=== PATIENT | male | born 1945 ===

== ENCOUNTER 2018-12-07 00:18 | Outpatient (CLI) | payer MEDICARE, OTHER, SELFPAY ==
--- NOTE | 2018-12-07 07:14 | DI.US_ITS ---
SYMPTOM/DIAGNOSIS: FAMILY H/O AAA, Z82.49, ? AAA AORTA ULTRASOUND: There is no evidence of abdominal aortic aneurysm. Maximum diameter of the abdominal aorta is seen proximally and is 2.6 cm. IMPRESSION: No evidence of an abdominal aortic aneurysm.
== END 2018-12-07 00:38 ==
PROVIDERS: PCP Emergency Medicine; Visit Provider Emergency Medicine
DX: Z82.49 Family history of ischemic heart disease and other diseases of the circulatory system (principal); Z13.6 Encounter for screening for cardiovascular disorders
CPT/HCPCS: 76706

== ENCOUNTER 2019-05-31 09:12 | Outpatient (CLI) | payer MEDICARE, OTHER, SELFPAY ==
[2019-05-31 13:09] LABS: TSH 2.78 uIU/mL (0.36-3.74)
== END 2019-05-31 09:32 ==
PROVIDERS: PCP Emergency Medicine; Visit Provider Emergency Medicine
DX: E03.9 Hypothyroidism, unspecified (principal)
CPT/HCPCS: 36415; 84443

== ENCOUNTER 2020-06-12 09:04 | Outpatient (REF) | payer MEDICARE, OTHER, SELFPAY ==
[2020-06-12 13:36] LABS: TSH 2.29 uIU/mL (0.36-3.74)
== END 2020-06-12 09:24 ==
LOC: LBN 09:04
PROVIDERS: PCP Emergency Medicine; Visit Provider Emergency Medicine
DX: E03.9 Hypothyroidism, unspecified (principal)
CPT/HCPCS: 84443

== ENCOUNTER 2020-12-12 09:53 | Outpatient (REF) | payer MEDICARE, OTHER, SELFPAY ==
[2020-12-12 12:53] LABS: Calculated LDL 99 mg/dL (<100); Cholesterol 166 mg/dL (<200); HDL Cholesterol 39 mg/dL (40-60); Triglyceride 141 mg/dL (<150)
[2020-12-12 21:59] LABS: PSA, Screening 3.2 ng/mL (0.0-6.5)
== END 2020-12-12 09:54 | disposition home or self-care (01) ==
LOC: LBN 09:53
PROVIDERS: PCP Emergency Medicine; Visit Provider Emergency Medicine
DX: N52.9 Male erectile dysfunction, unspecified (principal); N40.0 Benign prostatic hyperplasia without lower urinary tract symptoms; Z12.5 Encounter for screening for malignant neoplasm of prostate
CPT/HCPCS: 80061; 84153

== ENCOUNTER 2021-10-08 15:36 | Outpatient (REF) | payer MEDICARE, OTHER, SELFPAY ==
[2021-10-08 16:47] LABS: BUN 18 mg/dL (7-18); CREATININE 0.9 mg/dL (0.70-1.30); Calcium 9.2 mg/dL (8.5-10.1); Chloride 106 mmol/L (98-107); Glucose 81 mg/dL (74-106); Potassium 4.3 mmol/L (3.5-5.1); Sodium 141 mmol/L (136-145); TSH 3.12 uIU/mL (0.36-3.74)
== END 2021-10-08 15:37 | disposition home or self-care (01) ==
LOC: LBN 15:36
PROVIDERS: PCP Emergency Medicine; Visit Provider Emergency Medicine
DX: E03.9 Hypothyroidism, unspecified (principal); I10 Essential (primary) hypertension
CPT/HCPCS: 80048; 84443

== ENCOUNTER 2022-05-05 10:50 | Outpatient (CLI) | payer MEDICARE, OTHER, SELFPAY ==
--- NOTE | 2022-05-05 10:45 | RT.EKG_ITS ---
APPROVED REPORT Exam: Resting ECG Reason for Exam: No change in pulse rate while exercising Patient Location: O HR:57 bpm ECG Measurements Heart Rate 57 AXIS SD 173 P -3 QRSd 85 QRS -27 QT 413 T 57 QTc 400 Conclusion Sinus bradycardia...rate< 60 Atrial premature complex...SV complex w/ short R-R interval Low voltage, extremity leads...all extremity leads <0.5mV
== END 2022-05-05 10:51 | disposition home or self-care (01) ==
LOC: DI.CM 10:52
PROVIDERS: PCP Family Medicine; Visit Provider Emergency Medicine
DX: R94.31 Abnormal electrocardiogram [ECG] [EKG]; I49.1 Atrial premature depolarization
CPT/HCPCS: 93010

== ENCOUNTER 2022-05-12 10:25 | Outpatient (RCR) | payer MEDICARE, OTHER, SELFPAY ==
--- NOTE | 2022-05-12 10:15 | HOLTER_ITS ---
APPROVED REPORT Conclusion This is a 48-hour Holter monitor Predominant rhythm was sinus with an average heart rate of 63. Minimum was 51, maximum 134 There were moderately frequent ventricular ectopic beats, rare couplets, one 5 beat run of nonsustain ed ventricular tachycardia There were occasional atrial premature beats. A total of 4 episodes of paroxysmal atrial fibrillatio n were recorded. The longest of these lasted 1 minute and 7 seconds. There was no high-grade AV block, no pauses greater than 3 seconds There were no patient symptoms were reported
== END 2022-05-18 23:59 | disposition home or self-care (01) ==
LOC: RT 10:25
PROVIDERS: PCP Family Medicine; Visit Provider Emergency Medicine
DX: I45.89 Other specified conduction disorders (principal); I49.49 Other premature depolarization; I47.2 Ventricular tachycardia; I48.0 Paroxysmal atrial fibrillation
CPT/HCPCS: 93227; 93225; 93226

== ENCOUNTER 2022-05-12 12:00 | Outpatient (CLI) | payer MEDICARE, OTHER, SELFPAY ==
[2022-05-12 13:23] LABS: Anion Gap 8.5 mmol/L (3-11); BUN 23 mg/dL (7-18); CO2 26.5 mmol/L (21.0-32.0); CREATININE 1.1 mg/dL (0.70-1.30); Calcium 9.1 mg/dL (8.5-10.1); Chloride 106 mmol/L (98-107); Glucose 138 mg/dL (74-106); Potassium 3.7 mmol/L (3.5-5.1); Sodium 141 mmol/L (136-145)
== END 2022-05-12 12:01 | disposition home or self-care (01) ==
LOC: LBO 12:03
PROVIDERS: PCP Family Medicine; Visit Provider Emergency Medicine
DX: E03.9 Hypothyroidism, unspecified (principal); I10 Essential (primary) hypertension; R79.89 Other specified abnormal findings of blood chemistry
CPT/HCPCS: 36415; 80048; 93227; 84439; 84443; 93225; 93226

== ENCOUNTER 2023-06-15 08:26 | Outpatient (CLI) | payer MEDICARE, OTHER, SELFPAY ==
[2023-06-15 08:49] LABS: ALT 27 U/L (16-63); AST 28 U/L (15-37); Albumin 3.6 g/dL (3.4-5.0); Alkaline Phosphatase 70 U/L (46-116); Anion Gap 7.3 mmol/L (3-11); BUN 19 mg/dL (7-18); Bilirubin, Total 0.6 mg/dL (0.2-1.0); CO2 28.7 mmol/L (21.0-32.0); CREATININE 1.1 mg/dL (0.70-1.30); Calcium 9.1 mg/dL (8.5-10.1); Chloride 105 mmol/L (98-107); Estimated GFR 68.71 (mL/min/1.73m2); Glucose 79 mg/dL (74-106); Potassium 4.3 mmol/L (3.5-5.1); Sodium 141 mmol/L (136-145); TSH (W/Ref FT4) 3.13 uIU/mL (0.36-3.74); Total Protein 7.2 g/dL (6.4-8.2)
== END 2023-06-15 08:27 | disposition home or self-care (01) ==
LOC: LBO 08:27
PROVIDERS: PCP Family Medicine; Visit Provider Family Medicine
DX: I10 Essential (primary) hypertension (principal); E03.9 Hypothyroidism, unspecified; G62.9 Polyneuropathy, unspecified; L98.8 Other specified disorders of the skin and subcutaneous tissue
CPT/HCPCS: 36415; 80053; 84443

== ENCOUNTER → 2024-01-29 00:15 | Outpatient (CLI) | payer MEDICARE, OTHER, SELFPAY ==
--- NOTE | 2024-01-29 14:33 | DI.US_ITS ---
APPROVED REPORT EXAM: Comprehensive 2D, Doppler, and color-flow Echocardiogram Patient Location: Out-Patient Automation Tech: Lauren Cordova RDCS (AE) Indications: Weakness, Arrhythmia, SOB Other Information Study Quality: Adequate. Technically limited study due to arrhythmia. Conclusion Normal left ventricualr wall thickness and chamber size. EF is 55%. Wall motion is normal Normal right ventriucalr size and function Both atria are moderately dilated The aortic valve is mildly sclerotic and trileaflet, with trace regurgitation. Normal mitral valve with trace to mild regurgitation Moderate tricuspid regurgitation. estimated RVSP is 40 mmHg Ascending aorta measures 3.6 cm Wall motion Left Ventricle The left ventricle is normal size. The left ventricular systolic function is normal. The left ventric ular ejection fraction is within the normal range. There is normal left ventricular wall thickness. T here is normal LV segmental wall motion. There is no ventricular septal defect visualized. LVEF is 55 %. Right Ventricle Right ventricle is grossly normal in size. Right ventricular systolic function is grossly normal. Atria Left atrium is moderately dilated. Right atrium is moderately dilated. The interatrial septum is inta ct with no evidence for an atrial septal defect. Aortic Valve The Aortic valve is mildly sclerotic. Aortic valve is trileaflet. There is no aortic valvular stenosi s. Trace aortic regurgitation. Mitral Valve The mitral valve is normal in structure. No evidence of mitral valve stenosis. Trace to mild mitral r egurgitation. Tricuspid Valve The tricuspid valve is normal in structure. There is no tricuspid valve stenosis. Moderate tricuspid regurgitation. The RVSP is 39.7_ mmHg. Pulmonic Valve The pulmonary valve is normal in structure. There is no pulmonic valvular stenosis. Trace to mild pul anne regurgitation. Great Vessels The aortic root is normal in size. The ascending aorta is mildly dilated. Aortic arch is not well vis ualized. The IVC collapses <50% with inspiration. Pericardium There is no pericardial effusion. 2D Dimensions IVSD d PLAX 1.00 cm M: 0.6-1.2 Ao Root d 3.56 cm M: 3.1 - 3.7 LVPW d PLAX 1.00 cm M: 0.6 - 1.2 Ao Asc Diam d 3.58 cm M: 2.6 - 3.4 LVID d PLAX 5.22 cm M: 4.2 - 5.8 LVDs 3.73 cm M: 2.5 - 4.0 LV EF Teichholz 54.8 % FS 28.63 % LV EDV (Teich) 130.8 mL LV ESV (Teich) 59.2 mL M-Mode TAPSE 2.61 cm (M/F) >1.7 Auto EF LV EDV A4C 126.7 mL LV EDV A2C 152.3 mL LV EDV BP 137.7 mL LV ESV A4C 58.7 mL LV ESV A2C 69.6 mL LV ESV BP 63.3 mL LVEF(%) A4C 53.6 % LVEF(%) A2C 54.3 % LVEF(%) BP 54.1 % LV SV A4C 67.9 ml LV SV A2C 82.7 ml LV SV BP 74.5 ml LV CO A4C 4.4 L/min LV CO A2C 4.5 L/min LV CO BP 4.4 L/min HR A4C 64.06 BPM HR A2C 54.30 BPM LV EDV Index (BP) LA Volume LA Length A4C 6.9 cm LA Length A2C 5.8 cm LA Area A4C s 27.84 cm2 LA Area A2C s 26.46 cm2 LA Vol A4C A-L 94.76 mL LA Vol A2C A-L 102.03 mL LA Vol Biplane A-L 107.3 mL LA Vol/BSA A4C A-L LA Vol/BSA A2C A-L LA Vol/BSA BP A-L 51.1 mL/m2 LA Vol A4C MOD 85.2 mL LA Vol A2C MOD 95.0 mL LA Vol BP MOD 98.0 mL RA Volume RA Area A4C 24.6 cm2 RA ESV A4C (A-L) 81.9mL RA Vol/BSA A4C A-L RA Length A4C 6.3 cm RA ESV A4C (MOD) 77.4mL LV Diastology MV E' medial 0.061 (>0.07 m/s) MV E Vmax 0.44 (0.4-1.3 m/s) MV E/E' MED 7.17 (<14) MV A Vmax 0.65 (0.4-1.3 m/s) MV E' lateral 0.061 (>0.1 m/s) E/A Ratio 0.7 MV E/E' LAT 7.17 (<14) MV E' Average 0.061 m/s MV E/E'(average) 7.17 Aortic Valve AoV Vmax 1.39 m/s LVOT Vmax 1.11 m/s AoV Peak Grad 7.7 mmHg LVOT Peak Grad 4.9 mmHg AoV Area (Vmax) 2.70 cm2 LVOT VTI 0.239 m AoV VTI 0.341 m LVOT Mean Grad 2.7 mmHg AoV Mean Johann. 0.96 m/s LVOT SV 81.07 mL AoV Mean Grad 4.2 mmHg LVOT Diam s 2.05 cm AoV Area (VTI) 2.38 cm2 Velocity Ratio 0.80 Mitral Valve MV DT 477 (160-240 msec) MV Vmax TIPS 0.71 m/s MV Mean Grad 0.6 (<2mmHg) MV VTI 0.197 m Pulmonary Valve PV Vmax 0.91 (0.5-1.5 m/s) RVOT Vmax 0.77 m/s PV Peak Grad 3.3 mmHg RVOT Peak Gr. 2.4 mmHg PV Mean Johann 0.60 m/s RVOT VTI 0.180 m PV Mean Grad 1.7 mmHg RVOT Mean Gr. 1.1 mmHg Tricuspid Valve RA Pressure 8.00 mmHg TR Vmax 2.82 m/s TV S' 0.15 m/s TR Peak Grad 31.7 mmHg RVSP (TR) 39.7 mmHg
== END ==
PROVIDERS: PCP Family Medicine; Visit Provider Family Medicine
DX: R06.02 Shortness of breath (principal); R53.1 Weakness
CPT/HCPCS: 93306

== ENCOUNTER 2024-05-20 02:28 | Outpatient (CLI) | payer MEDICARE, OTHER, SELFPAY ==
--- OUTSIDE RECORDS SUMMARY | 2024-05-20 02:48 | XMS_ITS | Encounter Summary ---
Author Organization [facility]ly [facility] Address [facility] [place] [address] Care Team Providers Care Snowmaker Name Role Phone González Luis DO Primary Care Provider [phone] Reason for Visit * Reason Onset Date Comments TeleHealth 08/21/2022 Medication and a llergy review. Encounter Details Date Type Department Care Team (Late st Contact Info) Description 08/21/2022 [place] [address] Laura Chavez MD [facility] [place] [address] TeleHealth (Medication and allergy review. ) Social History Tobacco Use Types Packs/Day Years Used Date Smoking Tobacco: Former Cigarettes Q uit: 06/30/1967 Smokeless Tobacco: Never Alcohol Use Standard Drinks/Week Comments No 0 (1 standard drink = 0.6 oz pur e alcohol) Sex and Gender Information Value Date Recorded Sex Assigned at Not on file Gender Identity Not on file Sexual Orientation Choose not to disclose 2022 11:32 AM EDT documented as of this encounter Miscellaneous Notes * Telephone Encounter - Tiffanie Dubois RN - 08/21/2022 12:28 PM EDT Spoke to this patient by phone to review their medications and allergies prior to their upcoming tele-appointment with the Neurology provider. Medications and allergies reviewed, verified and updatedas needed. Learning Needs Assessment completed. documented in this encounter Plan of Treatment Upcoming Encounters Date Type Department Care Team (Late st Contact Info) Description 06/13/2024 3:00 PM EDT [place] [address] Laura Chavez MD [facility] [place] [address] 12/12/2024 3:30 PM EST [place] [phone] Laura Chavez MD [facility] [place] [address] documented as of this encounter Visit Diagnoses Not on filedocumented in this encounter Care Teams Snowmaker Relationship Specialty Start Date End Date González Luis DO [address] [place] [address] PCP - General Family Medicine 04/23/17 documented as of this encounter
--- OUTSIDE RECORDS SUMMARY | 2024-05-20 02:48 | XMS_ITS | Encounter Summary ---
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 ; Splenic artery aneurysm Social History Tobacco Use Types Packs/Day Years [...] AM EDT documented as of this encounter Plan of Treatment Upcoming Encounters Date Type Department Care Team (Late st Contact Info) Description 06/13/2024 3:00 PM EDT [place] [phone] Laura Chavez MD [facility] [place] [address] 12/12/2024 3:30 PM EST [place] [address] Laura Chavez MD [facility] [place] [address] documented as of this encounter Procedures Procedure Name Priority Date/Time Associated Diagnosis Comments IMMUNOGLOBULINS, QUANTITATIVE Routine 06/19/2022 11:26 AM EDT IMMUNOFIXATION ELECTROPHORESIS Routine 06/19/2022 11:26 AM EDT HC P[facility] METHYLMALONIC ACID Routine 06/19/2022 11:26 AM EDT Neuropathy HC THYROID STIMULATING HORMONE, SERUM Routine 06/19/2022 11:26 AM EDT Neuropathy 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 ELECTROPHORESIS Routine 06/19/2022 11:26 AM EDT Neuropathy HC VITAMIN B12 SERUM Routine 06/19/2022 11:26 AM EDT Neuropathy COMPREHENSIVE METABOLIC PANEL (NON-FASTING) Routine 06/19/2022 11:26 AM EDT Neuropathy documented in this encounter Results * Immunoglobulins, Quantitative (06/19/2022 11:26 AM EDT) IgG 917 700 - 1,600 mg/dL [facility] Comment: Pediatric Reference Intervals obtained from the Caliper Reference Interval project. http://www.sickkids.ca/caliperproject/index.html IgA 229 70 - 400 mg/dL [facility] IgM 141 40 - 230 mg/dL [facility] Blood Venous Draw / Unknown 06/19/2022 11:26 AM EDT 06/19/2022 11:39 AM EDT Narrative Resulting Agency Comment Spec In Lab Laura Chavez MD CHEMISTRY ORDERABLE S Performing Organization Address [facility] Co de Phone Number [facility] [place] [address] * Immunofixation Electrophoresis (06/19/2022 11:26 AM EDT) [facility] JUDE See Note [facility] Comment: No specific abnormality observed. Dr Robin Díaz 06/23/2022 See scanned report. Blood Venous Draw / Unknown 06/19/2022 11:26 AM EDT 06/19/2022 11:39 AM EDT Narrative Resulting Agency Comment Spec In Lab Laura Chavez MD CHEMISTRY ORDERABLE S Performing Organization Address [facility] Co de Phone Number [facility] [place] [address] * TSH (06/19/2022 11:26 AM EDT) [facility] TSH 3.18 0.27 - 4.20 mcIU/mL [facility] Comment: Reference Interval (mcIU/mL): Females: ??First Trimester: 0.23-3.88 ??Second Trimester: 0.22-3.90 ??Third Trimester: 0.44-4.66 Blood 06/19/2022 11:2 6 AM EDT 06/19/2022 11:34 AM EDT Narrative Resulting Agency Comment Spec In Lab Laura Chavez MD CHEMISTRY ORDERABLE S Performing Organization Address [facility] Co de Phone Number [facility] [place] [address] * Protein Electrophoresis, serum (06/19/2022 11:26 AM EDT) [facility] Total Prot Elec 6.5 6.1 - 8.0 g/dL [facility] Albumin Elect 4.24 3.20 - 5.20 g/dL [facility] Alpha1-Globulin 0.17 0.10 - 0.30 g/dL [facility] Alpha2-Globulin 0.62 0.40 - 0.90 g/dL [facility] Beta Globulin 0.65 0.50 - 1.00 g/dL [facility] Gamma Globulin 0.82 0.50 - 1.30 g/dL [facility] M1 Band Comments Below None Detected [facility] SPEP Comments See Note [facility] Comment: Immunofixation (JUDE) and quantitative immunoglobulin (AYAN) testing will be performed on this sample per MD request. Blood 06/19/2022 11:2 6 AM EDT 06/19/2022 11:34 AM EDT Narrative Resulting Agency Comment Spec In Lab Laura Chavez MD CHEMISTRY ORDERABLE S Performing Organization Address [facility]/ZIP Co de Phone Number [facility] [place] [address] * Vitamin B12 (06/19/2022 11:26 AM EDT) Vitamin B-12 431 232 - 1,245 pg/mL [facility] Blood 06/19/2022 11:2 6 AM EDT 06/19/2022 11:34 AM EDT Narrative Resulting Agency Comment Spec In Lab Laura Chavez MD CHEMISTRY ORDERABLE S Performing Organization Address [facility] Co de Phone Number [facility] [place] [address] * Methylmalonic acid, serum (06/19/2022 11:26 AM EDT) Methylmalonic Acid 0.21 <=0.40 nmol/mL [facility] Comment: ADDITIONAL INFORMATION This test was developed and its performance characteristics determined by [facility] in a manner consistent with CLIA requirements. This test has not been cleared or approved by the U.S. Food and Drug Administration. Test Performed by: [facility] - [address] [address] Plant Operator: Franck Spicer M.D. Ph.D.; CLIA# [id number] Blood 06/19/2022 11:2 6 AM EDT 06/19/2022 3:51 PM EDT Narrative Resulting Agency Comment Spec In Lab Laura Chavez MD CHEMISTRY ORDERABLE S [facility] [place] [address] * Comprehensive metabolic panel (non-fasting) (06/19/2022 11:26 AM EDT) Glucose Lvl 92 65 - 199 mg/dL [facility] Comment:Diabetes: >=200 mg/d L plus symptoms BUN 18 10 - 20 mg/dL [facility] Creatinine 0.93 0.80 - 1.50 mg/dL [facility] Sodium 141 135 - 145 mmol/L [facility] Potassium 4.1 3.5 - 5.0 mmol/L [facility] Comment: Please note: ??Patients with WBC >100,000 may have falsely elevated Potassium levels. ??For accurate Potassium quantification in these patients send serum separator tube (gold top) for subsequent determinations. ??Contact the Clinical Chemistry Laboratory if there are any questions. Chloride 104 98 - 107 mmol/L [facility] CO2 27 22 - 31 mmol/L [facility] Anion Gap 10 5 - 15 mmol/L [facility] Calcium 9.3 8.5 - 10.5 mg/dL [facility] Total Protein 7.0 6.1 - 8.0 g/dL [facility] Albumin 4.2 3.2 - 5.2 g/dL [facility] AST 37 0 - 39 unit/L [facility] ALT 23 0 - 55 unit/L [facility] Alk Phos 68 40 - 130 unit/L [facility] Total Bilirubin 0.5 0.2 - 1.3 mg/dL [facility] Estimated GFR 85 >=60 mL/min/1. 73 m?? [facility] Comment: This patient's estimated GFR was calculated using the 2020 CKD-EPI equation. The estimated GFR can vary from the measured GFR by up to 30% in the absence of rapidly changing kidney function. Assessment of the estimated GFR is not appropriate when creatinine concentrations are rapidly changing. For clinical situations in which a more precise estimate of GFR is necessary, consider alternative methods of GFR estimation such as a 24-hour urine creatinine clearance. Assignment of CKD stage 1-5 for patients with an eGFR near the transition point between stages may be based on clinical assessment of muscle mass and symptoms in addition to eGFR. Blood 06/19/2022 11:2 6 AM EDT 06/19/2022 11:34 AM EDT Narrative Resulting Agency Comment Spec In Lab Laura Chavez MD CHEMISTRY ORDERABLE S [facility] [place] [address] * Vitamin B6 (06/19/2022 11:26 AM EDT) [facility] Vitamin B6 26 5 - 50 mcg/L [facility] Comment: ADDITIONAL INFORMATION This test was developed and its performance characteristics determined by [facility] in a manner consistent with CLIA requirements. This test has not been cleared or approved by the U.S. Food and Drug Administration. Test Performed by: [facility] - [address] [address] Plant Operator: Franck Spicer M.D. 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
--- OUTSIDE RECORDS SUMMARY | 2024-05-20 02:48 | XMS_ITS | Encounter Summary ---
Author Organization [facility] Address [facility] [place] [address] Care Team Providers Care Supervisor [employer] Name Role Phone González Luis DO Primary Care Provider Reason for Visit * Reason Onset Date Comments Appointment 05/06/2023 Encounter Details Date Type Department Care Team (Late st Contact Info) Description 05/06/2023 [place] [address] Laura Chavez MD [facility] [place] [address] Appointment Social History Tobacco Use Types Packs/Day Years [...] encounter Miscellaneous Notes * Telephone Encounter - Yany Souza - 05/06/2023 10:04 AM EDT Patient has been scheduled for a Tele-health for 11/17/23 at 2pm. Patient also scheduled an in-clinic for 05/23/24 3:30 to accommodate his routine 6 mo follow ups * Telephone Encounter - Nesha Paul - 05/06/2023 9:07 AM EDT Scheduling Instructions Provider: Dr Chavez Visit Type (paste GUDELIA Instructions or manually enter): Return in about 6 months (around 11/04/2023) for In Clinic or Telehealth If EMG Visit needed list diagnosis for the EMG to be used in Decision Tree: Appt Note: Neuropathy Additional Info Needed: documented in this encounter Plan of Treatment Upcoming Encounters Date Type Department Care Team (Late st Contact Info) Description 06/13/2024 3:00 PM EDT [place] [address] Laura Chavez MD [facility] [place] [address] 12/12/2024 3:30 PM EST [place] [address] Laura Chavez MD [facility] [place] [address] documented as of this encounter Visit Diagnoses Not on filedocumented in this encounter Care Teams Supervisor [employer] Relationship Specialty Start Date End Date González Luis DO [address] [place] [address] [address] [place] [address] PCP - General Family Medicine 04/23/17 documented as of this encounter
--- OUTSIDE RECORDS SUMMARY | 2024-05-20 02:48 | XMS_ITS | Encounter Summary ---
Author Organization [facility] Address [facility] [place] [address] Care Team Providers Care Jig Operator Name Role Phone González Luis DO Primary Care Provider Encounter Details Date Type Department Care Team (Late st Contact Info) Description 11/10/2023 3:30 PM EST TH Visit (TeleHealth) [place] [address] Laura Obrien MD 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 male was evaluated remotely instead of scheduled FU visit. The visit was performed in [place] Last visit was 05/04/2023 Presenting complaint or diagnosis: generalized, axonal, length dependent, sensorimotor neuropathy PMHx relevant to diagnosis: lumbar stenosis, suspected GMG Patient Active Problem List Diagnosis Splenic artery aneurysm Romxmbg-Stiob-Dpzsl disease Gait abnormality Assessment from last visit, 05/04/2023: Juan J Hardin is a 77 y.o. 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 He is somewhat imporved from last visit with less fatigue but persistent fatigability and reduced interosseous wasting. He feels he is stable and not worsening but would like to know if there is roomfor improvement. We had a long discussion about steroids. We will hold on this for now, but can consider this in the future. Plan to optimize Mestinon. Follow-up: 6 month Interval History: Fatigue is stabilized. Pyridostigmine still helps him to sustain his activity although it doesn't give him the boost it has in the past (6A -9A - 2P- 6P). He doesn't miss a dose. It still helps his voice. He feels like he has had some recovery in the bulk of his FDI. He feels his strength, energy and endurance has imporved. His neuropathy symptoms are unchanged. Back has been stable. He has had some trouble with calf weakness R>L. Difficulty rising on toe with some toe slap. This has settled down recently with more vigorous calf strengthening. The left leg is relatively preserved. Falls: balance is deteriorating but his not having falls. He continues to snowshoe and walk on uneven ground. Pain: transient; nothing sustained. Multifocal and generally transient. Occasional lancinating pain. This can involve mostly noticeable while driving. Muscle cramping: occurs, but nothing major. Predominantly in the LEs but occasionally intercostal. If he yawns/twists in a certain direction. Not everyday or every week. Controlled. Neck pain: nothing unusual. Chewing/swallowing/speaking: he can have some trouble with secretions. This is associated with meals not at night. Vision: occasional diplopia looking laterally. Gastric manifestations: with Mestinon; not prohibitive at this time. Neuropathic pain: some dysesthesias and occasional lancinating. Medications: Medications 05/04/23 1444 Medication Sig Taking? rivaroxaban (Xarelto) 20 mg Tablet Take 20 mg by mouth daily. metoprolol succinate XL (Toprol-XL) 25 mg Tablet Sustained Release 24 hr Take 25 mg by mouth daily. cetirizine (ZyrTEC) 10 mg Tablet Take 10 mg by mouth daily. pyridostigmine (MESTINON) 60 mg Tablet Take 0.5 tablets by mouth 3 times daily. Patient taking differently: Take 60 mg by mouth daily. Takes at 6 am, 10 am, 2 pm, 6 pm, 9 pm; takes 1 or 2 tablets based on his symptoms at the time Indications: 7 60mg tabs per day levothyroxine (SYNTHROID) 50 mcg Tablet Take 50 mcg by mouth daily. tamsulosin (FLOMAX) 0.4 mg Capsule, Sust. Release 24 hr Take 2 capsules by mouth daily. meclizine (ANTIVERT) 25 mg Tablet Take 25 mg by mouth 3 times daily as needed. Allergy: Allergies Allergen Reactions Dust & Pollen Filter Mask [Facial Mask] Pollen Extracts Assessment / Plan: Juan J Hardin is a 78 y.o. 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 He is doing well compared to his previous visit. He continues to be controlled with pyridostigmine,using it 4 times a day as well as prior to activity. This seems to keep his symptoms under control.Fatigue is less prominent than it has been in the past. He continues to get some mild symptoms but they are manageable. Similarly, his neuropathy seems to be stable without progression and he denies pain. He is stable and seems to be doing well. Have not made any changes to his regimen but will continueto get base with him to monitor for clinical changes. Follow-up: 6-12 months, IC. LAURA OBRIEN MD [facility] Office Machine Technician, Neuromuscular Medicine [facility] 11/10/23 12:15 PM Patient provided verbal consent prior to initiation of this telephone/televisit encounter and expressed understanding that the telephone/televisit may be billed similar to a clinic visit. I spent 30 minutes in face-face time with the patient, with 5 minutes spent in same day documentation, ordering testing/drugs, coordination of care, chart and test review. documented in this encounter Plan of Treatment Upcoming Encounters Date Type Department Care Team (Late st Contact Info) Description 06/13/2024 3:00 PM EDT [place] [address] Laura Obrien MD [facility] [place] [address] 12/12/2024 3:30 PM EST [place] [address] Laura Obrien MD 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
--- OUTSIDE RECORDS SUMMARY | 2024-05-20 02:48 | XMS_ITS | Encounter Summary ---
Author Organization [facility] Address [facility] [place] [address] Care Team Providers Care Computerized Mill Recorder Name Role Phone González Luis DO Primary Care Provider [phone] Reason for Visit * Reason Onset Date Comments Appointment 09/02/2022 Encounter Details Date Type Department Care Team (Late st Contact Info) Description 09/02/2022 Telephone [place] [address] Laura Chavez MD [facility] [place] [address] Appointment Social History Tobacco Use Types Packs/Day [...] encounter Miscellaneous Notes * Telephone Encounter - Nesha Paul - 09/02/2022 9:37 AM EST Scheduling Instructions Provider: Dr Chavez Visit Type (paste GUDELIA Instructions or manually enter): Return in about 6 months (around 02/23/2023) for In Clinic or Telehealth If EMG Visit needed list diagnosis for the EMG to be used in Decision Tree: Appt Note: Neuropathy Additional Info Needed: documented in this encounter Plan of Treatment Upcoming Encounters Date Type Department Care Team (Late st Contact Info) Description 06/13/2024 3:00 PM EDT Office [place] [address] Laura Chavez MD [facility] [place] [address] 12/12/2024 3:30 PM EST Office [place] [phone] Laura Chavez MD [facility] [place] [address] documented as of this encounter Visit Diagnoses Not on filedocumented in this encounter Care Teams Computerized Mill Recorder Relationship Specialty Start Date End Date González Luis DO [address] [place] [address] [address] [place] [address] PCP - General Family Medicine 04/23/17 documented as of this encounter
--- OUTSIDE RECORDS SUMMARY | 2024-05-20 02:48 | XMS_ITS | Encounter Summary ---
Author Organization [facility] Address [facility] [place] [address] Care Team Providers Care Drug Safety Scientist Name Role Phone González Luis DO Primary Care Provider Encounter Details Date Type Department Care Team (Late st Contact Info) Description 06/19/2022 1:30 PM EDT Office Visit [place] [address] Dmitry Chaudhary MD [facility] [place] [address] Splenic artery aneurysm Social History Tobacco Use [...] AM EDT documented as of this encounter Last Filed Vital Signs Vital Sign Reading Time Taken Comments Blood Pressure 122/64 06/19/2022 1:21 PM EDT Pulse 65 06/19/2022 1:21 PM EDT Temperature - - Respiratory Rate - - Oxygen Saturation - - Inhaled Oxygen Concentration - - Weight 87.1 kg (192 lb 2 oz) 06/19/2022 1:21 PM EDT pt reported Height 180.3 cm (5' 11) 06/19/2022 1:21 PM EDT pt reported Body Mass Index 26.8 06/19/2022 1:21 PM EDT documented in this encounter Progress Notes * Dmitry Chaudhary MD - 06/19/2022 1:30 PM EDT OUTPATIENT VASCULAR SURGERY CONSULTATION Reason for Visit: Splenic artery aneurysm s/p coil embolization History of Present Illness: This is a 77 y.o. 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 The patient was asymptomatic. Now s/p coil embolization 04/08. Pt developed partial splenic infarction post procedure. States he is doing well. reports that he quit smoking about 55 years ago. His smoking use included cigarettes. He has never used smokeless tobacco. Patient Active Problem List Diagnosis Code ??? Gait abnormality R26.9 ??? 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 Splenic artery aneurysm I72.8 Current Outpatient Medications: ??? rivaroxaban (Xarelto) 20 mg Tablet, Take 20 mg by mouth daily., Disp: , Rfl: ??? metoprolol succinate XL (Toprol-XL) 25 mg Tablet Sustained Release 24 hr, Take 25 mg by mouth daily., Disp: , Rfl: ??? pyridostigmine (MESTINON) 60 mg Tablet, Take 0.5 tablets by mouth 3 times daily. (Patient taking differently: Take 60 mg by mouth daily. Takes at 6 am, 10 am, 2 pm, 6 pm, 9 pm; takes 1 or 2 tablets based on his symptoms at the time Indications: 7 60mg tabs per day), Disp: 30 tablet, Rfl: 1 ??? levothyroxine (SYNTHROID) 50 mcg Tablet, Take 50 mcg by mouth daily., Disp: , Rfl: ??? tamsulosin (FLOMAX) 0.4 mg Capsule, Sust. Release 24 hr, Take 1 capsule by mouth daily., Disp: , Rfl: ??? multivitamin (THERAGRAN) Tablet, Take 1 tablet by mouth daily., Disp: , Rfl: ??? cetirizine (ZyrTEC) 10 mg Tablet, Take 10 mg by mouth daily., Disp: , Rfl: ??? fluticasone-salmeterol (ADVAIR) 250-50 mcg/dose Disk with Device, Inhale 1 puff into the lungs 2 times daily as needed., Disp: , Rfl: ??? aspirin 325 mg Tablet, Take 325 mg by mouth daily., Disp: , Rfl: ??? meclizine (ANTIVERT) 25 mg Tablet, Take 25 mg by mouth 3 times daily as needed., Disp: , Rfl: ??? albuterol 90 mcg/actuation HFA Aerosol Inhaler, Inhale 2 puffs into the lungs every 4 hours as needed for Wheezing. Use with spacer, Disp: , Rfl: No current facility-administered medications for this visit. Allergies Allergen Reactions ? ? Dust & Pollen Filter Mask [Facial Mask] ??? Pollen Extracts Review of Systems: Constitutional (weight change, fever) - Denies Neuro (dizziness, seizures, numbness, tingling) - Denies Eyes (vision) - Denies Ears, nose, throat (hearing) - Denies Cardiovascular (CP) - Denies Respiratory (SOB) - Denies GI (abd pain, nausea, emesis, blood in stool) - Denies (hematuria, dysuria, frequency) - Denies Muscoloskeletal (extremity pain, weakness) - Denies Skin (ulcers, rashes) - Denies Functional Status/Social Hx: Family Hx: Negative for Thrombosis, Bleeding Disorders Physical Exam: BP 122/64 (BP Location (NBP): Left arm, Patient Position: Sitting, BP Cuff Sizes: Adult (25-34 cm)) Pulse 65 Ht 180.3 cm (5' 11) Comment: pt reported Wt 87.1 kg (192 lb 2 oz) Comment: pt reported BMI 26.80 kg/m?? General - NAD, appears stated age Neuro - Alert and Oriented, Motor Sensory grossly intact Psych- alert oriented X3 , Extremities - Warm, pink, no edema, brisk capillary refill Vascular Exam: R L Carotid 2/2 bruit () 2/2 bruit () Radial 2/2 2/2 Femoral Popliteal DP PT Labs: Recent Results (from the past 72 hour(s)) Comprehensive metabolic panel (non-fasting) Result Value Ref Range Glucose Lvl 92 65 - 199 mg/dL BUN 18 10 - 20 mg/dL Creatinine 0.93 0.80 - 1.50 mg/dL Sodium 141 135 - 145 mmol/L Potassium 4.1 3.5 - 5.0 mmol/L Chloride 104 98 - 107 mmol/L CO2 27 22 - 31 mmol/L Anion Gap 10 5 - 15 mmol/L Calcium 9.3 8.5 - 10.5 mg/dL Total Protein 7.0 6.1 - 8.0 g/dL Albumin 4.2 3.2 - 5.2 g/dL AST 37 0 - 39 unit/L ALT 23 0 - 55 unit/L Alk Phos 68 40 - 130 unit/L Total Bilirubin 0.5 0.2 - 1.3 mg/dL Estimated GFR 85 >=60 mL/min/1.73 m?? Vitamin B12 Result Value Ref Range Vitamin B-12 431 232 - 1,245 pg/mL Protein Electrophoresis, serum Result Value Ref Range Total Prot Elec 6.5 6.1 - 8.0 g/dL TSH Result Value Ref Range TSH 3.18 0.27 - 4.20 mcIU/mL Studies: IMPRESSION ?? Post splenic artery aneurysm embolization since the previous study with resultant partial splenic infarction. No flowsheet data found. Assessment and Plan: Pt with successful coil embolization of splenic artery aneurysm. Had some symptoms that could be related to a combination of aneurysm thrombosis and partial splenic infarct. He has enough residual spleen that he does not need pneumococcal vaccines. Repair looks good. Plan to follow prn. documented in this encounter Plan of Treatment Upcoming Encounters Date Type Department Care Team (Late st Contact Info) Description 06/13/2024 3:00 PM EDT Office [place] [address] Laura Chavez MD [facility] [place] [address] 12/12/2024 3:30 PM EST Office [place] [phone] Laura Chavez MD [facility] [place] [address] documented as of this encounter Visit Diagnoses Diagnosis 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 documented in this encounter Care Teams Drug Safety Scientist Relationship Specialty Start Date End Date González Luis DO [address] [place] [address] PCP - General Family Medicine 04/23/17 documented as of this encounter
--- OUTSIDE RECORDS SUMMARY | 2024-05-20 02:48 | XMS_ITS | Encounter Summary ---
Author Organization [facility] Address [facility] [place] [address] Care Team Providers Care Spindle Maker Name Role Phone González Luis DO Primary Care Provider [phone] Reason for Visit * Reason Onset Date Comments Reminder Appointment 11/03/2023 Encounter Details Date Type Department Care Team (Late st Contact Info) Description 11/03/2023 [place] [address] [facility] [place] [address] Reminder Appointment Social History Tobacco Use Types Packs/Day [...] encounter Miscellaneous Notes * Telephone Encounter - Natalie Dumont CMA - 11/03/2023 9:49 AM EST Unable to reach this patient by phone to review their medications and allergies prior to their upcoming tele-appointment with the Neurology provider. No message left. documented in this encounter Plan of Treatment Upcoming Encounters Date Type Department Care Team (Late st Contact Info) Description 06/13/2024 3:00 PM EDT [place] [address] [facility] [place] [address] 12/12/2024 3:30 PM EST [place] [address] [facility] [place] [place] [address] documented as of this encounter Visit Diagnoses Not on filedocumented in this encounter Care Teams Spindle Maker Relationship Specialty Start Date End Date González Luis DO [address] [place] [address] [address] [place] [address] PCP - General Family Medicine 04/23/17 documented as of this encounter
--- OUTSIDE RECORDS SUMMARY | 2024-05-20 02:48 | XMS_ITS | Encounter Summary ---
Author Organization [facility] [place] [address] Care Team Providers Care It Quality Analyst Name Role Phone González Luis DO Primary Care Provider [phone] Reason for Referral * Diagnostic Test (Routine) - Closed Specialty Diagnoses / Procedures Referred By Contac t Referred To Contact Radiology Diagnoses Fatigue, unspecified type Gait disturbance Procedures MRI Cervical Spine wwo Contrast MRI Cervical Spine wo Contrast (Generic) Laura Obrien MD [facility] [place] [address] [place] [address] Referral ID Status Reason Start Date Expiration Date V isits Requested Visits Authorized [id number] Closed Specialty Service Requested 01/13/2022 07/16/2023 1 1 Encounter Details Date Type Department Care Team (Late st Contact Info) Description 01/13/2022 4:00 PM EDT [place] [address] Laura Obrien MD [facility] [place] [address] Fatigue, unspecified type; Gait disturbance Social History [...] Sign Reading Time Taken Comments Blood Pressure 152/88 01/13/2022 3:56 PM EDT Pulse 56 01/13/2022 3:56 PM EDT Temperature - - Respiratory Rate - - Oxygen Saturation - - Inhaled Oxygen Concentration - - Weight 87.1 kg (192 lb) 01/13/2022 3:56 PM EDT r eported Height 182.9 cm (6') 01/13/2022 3:56 PM EDT repo rted Body Mass Index 26.04 01/13/2022 3:56 PM EDT documented in this encounter Progress Notes * Laura Obrien MD - 01/13/2022 3:30 PM EDT Neurology Clinic Telephone/Telehealth Follow-up Note Per COVID19 Restrictions 01/12/22 10:48 PM Patient Name: Juan J Hardin : 1945 PCP: González Luis DO Patient ID: Juan J Hardin is a 76 y.o. male was evaluated remotely instead of scheduled FU visit. Last visit was02/12/2021. Diagnosis: generalized, axonal, length dependent, sensorimotor neuropathy PMHx relevant to diagnosis: lumbar stenosis, suspected GMG Patient Active Problem List Diagnosis ??? Splenic artery aneurysm ??? Vltuhps-Hupqy-Porup disease ??? Gait abnormality Assessment from last visit, 01/2021: Juan J Hardin is a 75 y.o. 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 We discussed the findings on his chest CT and lumbar MRI. The latter is revealing for lumbar stenosis moderate to severe at L4-5. It is difficult, in the setting of GMG and neuropathy, to determine which is causative of LE weakness; asymmetry implies lumbar radiculopathy. We discussed the possibility of immunomodulation of suspected seronegative GMG - he is responding well to Mestinon. If immunomodulation were considered I would recommend intermittent use of IVIG. However, with an incidental finding of splenic artery aneurysm, this should be investigated through vascular surgery first. Additionally, I have recommended proceeding with single-fiber EMG to achieve better diagnostic specificity. Orders Placed This Encounter Procedures ??? Referral to Vascular Surgery ??? Referral to Spine Center Follow-up: for SFEMG NCS/EMG IMPRESSION: Abnormal study. Persistent and unchanged evidence of length-dependent, sensorimotor axonal neuropathy that is not significantly changed from prior study dated 07/06/2017. There is no evidence to support a post-synaptic neuromuscular junction defect. There is evidence to support right L5-S1 radiculopathy. Clinical and radiologic correlation is recommended. CLINICAL CORRELATION: His generalized, axonal, length dependent, sensorimotor neuropathy is essentially unchanged on electrodiagnostic study. However, he does have asymmetric denervation noted more on the right side and corresponding to the L5- S1 innervated nerve roots. This is noted proximally and therefore suggestive of a proximal lesion; although paraspinal muscles did not demonstrate denervation, reviewing his lumbar MRI from 2017 suggests localization to his spine. I am most suspicious that this represents L5-S1 radiculopathy on the right superimposed on his neuropathy. He did not demonstrate any evidence of decrement on distal and proximal RNS. This does not rule outa neuromuscular junction defect but does not argue for it. Given he continues to have a good response of his fatigue to higher doses of Mestinon, we talked about continuing to challenge it. He will increase his dose by 60 mg every other dosing for a total of 180 mg/day. We did discuss the question of immunomodulation in the setting of an equivocal diagnosis; while I would be reluctant to recommend immunomodulation, I think a course of IVIG would not be unreasonable. At this point, his symptoms are being controlled with Mestinon and we will continue to work on this rather than considering immun omodulatory agents. We discussed imaging with chest CT to evaluate for thymoma as well as re imaging his lumbar MRI forchanges from his prior study in 2017. I will plan to discuss these results and going forward with him by telehealth. Interval History: He has had post-embolism syndrome; fatigue, abdominal pain and fever. This lasted 4- weeks and left him feeling completely drained. He can no longer walk fast. He is still going to the gym. He notes particular impact of endurance and rapid movements (fast twitch). Pyridostigmine is helpful for this - but not completley. If he takes the Mestinon regularly, he notes a difference. 6AM-9PM. Clarified his Mestinon use. Note erroneous report above noted in assessment from last visit. His current dose is as follows: Time 6A 10A 2P 6P 9P Tabs 2 2 2 2 1 Dose (mg) 120 120 120 120 60 480 mg Neuropathy symptoms static. Some intercostal cramping. No neck or back pain. Myasthenia Gravis Composite Scale: Ptosis, upward gaze >45 sec = 0 11-45 sec = 1 1-10 sec = 2 Immediate = 3 0 Diplopia on lateral gaze >45 sec = 0 11-45 sec = 1 1-10 sec = 3 Immediate = 4 0 Eye closure Normal = 0 Mild weakness (can be forced with effort) = 0 Mod. Weakness (can be forced easily) = 1 Severe weakness (unable to keep closed) = 2 0 Talking Normal = 0 Intermittent slurring or nasal speech = 2 Constant slurring/nasal but can be understood = 4 Difficult to understand = 6 0 Chewing Normal = 0 Fatigue w/ solid food = 2 Fatigue w/ soft food = 4 Gastric tube = 6 0 Swallowing Normal = 0 Rare episode of choking/trouble swallowing = 2 Freq trouble swallowing Gastric tube = 6 1 Breathing (caused by MG) Normal = 0 SOB with exertion = 2 SOB at rest = 4 Ventilator dependence = 90 Neck flexion/extension Normal = 0 Mild weakness = 1 Moderate weakness (~50%) = 3 Severe weakness = 4 0 Shoulder abduction Normal = 0 Mild weakness = 2 Moderate weakness (~50%) = 4 Severe weakness = 5 0 Hip flexion Normal = 0 Mild weakness = 2 Moderate weakness (~50%) = 4 Severe weakness = 5 0 Total: 1 Relevant work up: Chest CT: IMPRESSION 1. No mediastinal mass seen. 2. UNEXPECTED FINDING. 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 ?? L2-L3: Disc bulge with loss of disc space height and endplate ridging, ligamentum flavum thickening, and bilateral facet arthrosis contribute to mild to moderate central spinal canal narrowing and moderate bilateral neural foraminal narrowing. ?? L3-L4: Disc bulge with loss of disc space height and endplate ridging, ligamentum flavum thickening, and bilateral facet arthrosis contribute to moderate central spinal canal narrowing as well as moderate RIGHT and moderate to severe LEFT neural foraminal narrowing. ?? L4-L5: Near complete loss of disc space height. Endplate ridging. Ligamentum flavum thickening. Bilateral facet arthrosis. Findings contribute to moderate to severe central spinal canal narrowing as well as moderate RIGHT and moderate to severe LEFT neural foraminal narrowing. ?? L5-S1: Disc bulge eccentric to the LEFT with loss of disc space height and bilateral facet arthrosis. Findings contribute to mild RIGHT and [id number] LEFT neural foraminal narrowing. ?? IMPRESSION Multilevel spondylosis as detailed above, without significant interval change appreciated. ?? Medications: Medications 11/28/21 1014 Medication Sig Taking? cetirizine (ZyrTEC) 10 mg Tablet Take 10 [...] mg Capsule, Sust. Release 24 hr Take 1 capsule by mouth daily. fluticasone-salmeterol (ADVAIR) 250-50 mcg/dose Disk with Device Inhale 1 puff into the lungs 2 times daily as needed. aspirin 325 mg Tablet Take 325 mg by mouth daily. meclizine (ANTIVERT) 25 mg Tablet Take 25 mg by mouth 3 times daily as needed. multivitamin (THERAGRAN) Tablet Take 1 tablet by mouth daily. albuterol 90 mcg/actuation HFA Aerosol Inhaler Inhale 2 puffs into the lungs every 4 hours as needed for Wheezing. Use with spacer Allergy: Allergies Allergen Reactions ? ? Dust & Pollen Filter Mask [Facial Mask] ??? Pollen Extracts BP 152/88 Pulse 56 Ht 182.9 cm (6') Comment: reported Wt 87.1 kg (192 lb) Comment: reported BMI 26.04 kg/m?? Appearance: The patient is a healthy-appearing male who appears of stated age and comes to his visit unaccompanied. he appears well developed and well nourished and requires no assistive devices for walking. Mental status: The patient is alert and calm with MS intact to detailed questioning regarding his history. his speech and language is intact to normal conversation and examination commands; speech fluent. his attention and concentration allow for a full evaluation without evidence for deficit. Cranial nerves: Facial movements are normal. Extraocular movements are intact with full lateral versions. Patient reports diplopia to leftward gaze but not rightward gaze. Downward gaze is preserved.Sustained upward gaze for 45 to 60 seconds was preserved. No Kyler twitch was elicited. Speech was clear without evidence of dysphonia or hoarseness of voice. Motor: NE NF SA EE EF WE WF FA FE Syd HG Right nt 5/5/5 5/5/5 5 5 5 5 5- 5- 4+ 5 Left nt 5/5/5 5/5/5 5 5 5 5 5- 5- 4+ 5 HF HE KE KF HAB HADD ADF APF I ToeF E Right 5/5/5 nt 5 5 nt nt 5 5 5 4 NRt 5- Left 5/5/5 nt 5 5 nt nt 5 5 5 4 NRt 5 There is no atrophy or fasciculations. There is no myoclonus, tremor, or drift. Coordination: No cerebellar ataxia. Gait and station: Able to rise from a seated position without the use of his hands or arms. Gait isnormal but slow. He is able to rise on heels and toes. Tendon reflexes: biceps triceps BR patellar AJ Plantars Right 1+ 1+ 1 2+ 0 mute Left 2 1+ 1+ 2+ 0 mute No clonus. Assessment / Plan: Juan J Hardin is a 76 y.o. 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 One of his most prominent symptoms of gait slowing. He is also feeling a sense of fatigue although he has not accumulated myasthenia defining symptoms. In this setting I would like to have an index of suspicion for other etiologies. In particular, we talked about proceeding with additional testing. We discussed proceeding with cervical MRI. Feel less enthusiastic with immunosuppression for GMG given a somewhat atypical presentation. Because of that, I elected not to proceed with SFEMG. However, if his cervical MRI is unchanged from prior study dated 2018, and he is progressing with fatigue and/or weakness, it will be appropriate to proceed to SFEMG. Orders Placed This Encounter Procedures ??? MRI Cervical Spine wo Contrast (Generic) Follow-up: by TH to review cervical MRI. LAURA OBRIEN MD [facility] Salesperson [employer], Neuromuscular Medicine [facility] 01/12/22 10:48 PM documented in this encounter Plan of Treatment Upcoming Encounters Date Type Department Care Team (Late st Contact Info) Description 06/13/2024 3:00 PM EDT [place] [address] Laura Obrien MD [facility] [place] [address] 12/12/2024 3:30 PM EST [place] [address] Laura Obrien MD [facility] [place] [address] documented as of this encounter Results * MRI Cervical Spine wwo Contrast (01/28/2022 2:25 PM EDT) Anatomical Region Laterality Modality C-spine Magnetic Resonan ce Impressions 01/28/2022 4:16 PM EDT 1. ??No evidence of myelopathy. 2. ??Cervical spondylosis with mild multilevel canal narrowing, and severe multilevel bilateral foraminal narrowing, not significantly changed. I have personally reviewed the image(s) and the resident's interpretation and agree with the findings, Darell Schneider MD at 01/28/2022 4:16 PM Thank you for letting us participate in the care of this patient. ??If you are a health care provider and have any questions regarding this report, please contact the number below. ??For patients who have questions please contact the health multi care technician that requested your imaging first. ? Electronically signed by: Darell Schneider MD, [facility] ([phone]), at 01/28/2022 4:16 PM Narrative 01/28/2022 4:16 PM EDT EXAMINATION: MRI CERVICAL SPINE WWO CONTRAST CLINICAL HISTORY: Myelopathy, chronic, cervical spine TECHNIQUE: MRI of the cervical spine was performed before and after the intravenous administration of 17cc Dotarem. COMPARISON: MRI cervical spine dated 07/05/2018. FINDINGS: Alignment is unchanged. Exaggerated cervical lordosis centered at C6-C7. Unchanged minimal retrolisthesis of C4 on C5. Vertebral body heights are preserved. Severe loss of the intervertebral disc space at C5-C6 associated with partial fusion of the vertebral bodies. Moderate narrowing of the C4-C5 and C5-C6 discs. Marrow signal is normal. The cervical spinal cord is normal in caliber. No enhancing lesions or abnormal signal within the cord. Mild spinal canal narrowing at C3-C4, C5-C6, and C6-C7 secondary to a combination of central disc protrusions, disc osteophyte complexes, uncovertebral and facet arthropathy. Moderate to severe bilateral foraminal narrowing at C3-C4, C4-C5 and C6-C7. These findings are not significantly changed. No prevertebral or perivertebral soft tissue abnormalities. Procedure Note Darell Schneider MD - 01/28/2022 EXAMINATION: MRI CERVICAL SPINE WWO CONTRAST CLINICAL HISTORY: Myelopathy, chronic, cervical spine TECHNIQUE: MRI of the cervical spine was performed before and after the intravenous administration of 17cc Dotarem. COMPARISON: MRI cervical spine dated 07/05/2018. FINDINGS: Alignment is unchanged. Exaggerated cervical lordosis centered at C6-C7. Unchanged minimal retrolisthesis of C4 on C5. Vertebral body heights are preserved. Severe loss of the intervertebral disc space at C5-[id number] with partial fusion of the vertebral bodies. Moderate narrowing of the C4-C5and C5-C6 discs. Marrow signal is normal. The cervical spinal cord is normal in caliber. No enhancing lesions orabnormal signal within the cord. Mild spinal canal narrowing at C3-C4, C5-C6, andC6-C7 secondary to a combination of central disc protrusions, disc osteophyte complexes, uncovertebral and facet arthropathy. Moderate to severebilateral foraminal narrowing at C3-C4, C4-C5 and C6-C7. These findings are not significantly changed. No prevertebral or perivertebral soft tissue abnormalities. IMPRESSION 1. No evidence of myelopathy. 2. Cervical spondylosis with mild multilevel canal narrowing, andsevere multilevel bilateral foraminal narrowing, not significantly changed. I have personally reviewed the image(s) and the resident's interpretationand agree with the findings, Darell Schneider MD at 01/28/2022 4:16 PM Thank you for letting us participate in the care of this patient. If youare a health care provider and have any questions regarding this report,please contact the number below. For patients who have questions please contactthe health multi care technician that requested your imaging first. Electronically signed by: Darell Schneider MD, [facility]([phone]), at 01/28/2022 4:16 PM Authorizing Provider Result Pao Obrien MD IMG MRI ORDERABLES documented in this encounter Visit Diagnoses Diagnosis Fatigue, unspecified type Gait disturbance Abnormality of gait Fatigue, unspecified type Gait disturbance Abnormality of gait documented in this encounter Care Teams It Quality Analyst Relationship Specialty Start Date End Date González Luis DO [address] [place] [address] PCP - General Family Medicine 04/23/17 documented as of this encounter
--- OUTSIDE RECORDS SUMMARY | 2024-05-20 02:48 | XMS_ITS | Encounter Summary ---
Author Organization [facility] Address [facility] [place] [address] Care Team Providers Care Mud Jack Nozzleman Name Role Phone González Luis DO Primary Care Provider Reason for Referral * Diagnostic Test (Routine) - Closed Specialty Diagnoses / Procedures Referred By Tolu[place] t Referred To Contact Radiology Diagnoses Splenic artery aneurysm Procedures CT Angiogram Abdomen & Pelvis w Contrast (Generic) Dmitry Chaudhary MD [facility] [place] [place] [address] [facility] [place] [address] Referral ID Status Reason Start Date Expiration Date V isits Requested Visits Authorized [id number] Closed Specialty Service Requested 11/29/2021 05/28/2023 1 1 Encounter Details Date Type Department Care Team (Late st Contact Info) Description 11/28/2021 Orders [place] [address] Linda Jay, [facility] Splenic artery aneurysm Social History Tobacco Use [...] 3:00 PM EDT [place] [address] [facility] [place] [address] 12/12/2024 3:30 PM EST [place] [id number] [facility] [place] [address] documented as of this encounter Results * CT Angiogram Abdomen & Pelvis w Contrast (Generic) (06/19/2022 12:56 PM EDT) Anatomical Region Laterality Modality Abdomen, Pelvis Computed Tomogra phy 06/19/2022 1:16 PM EDT Impressions 06/19/2022 3:07 PM EDT Post embolization of hilar splenic artery aneurysm. The aneurysm is unchanged in size without sign of persistent perfusion within the aneurysm. 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 There are signs of development of collateral flow to some of the segmental splenic artery branches likely via the dorsal pancreatic artery. Large prostate Thank you for letting us participate in the care of this patient. ??If you are a health care provider and have any questions regarding this report, please contact the number below. ??For patients who have questions please contact the health rn managed care that requested your imaging first. ? Electronically signed by: Harvinder Dean MD, [facility] ([phone]), at 06/19/2022 3:07 PM Narrative 06/19/2022 3:07 PM EDT EXAMINATION: CT ANGIOGRAM ABDOMEN AND PELVIS W CONTRAST (GENERIC) CLINICAL HISTORY: f/u splenic aneurysm repair TECHNIQUE: Helical CT angiogram of the abdomen and pelvis was performed following the intravenous administration of contrast. Administered 99.0 ml of OMNIPAQUE 350.00 mg/ml. Maximum intensity projection (MIP) were reformatted. Multiplanar images were reviewed and 3-D images were generated on an independent workstation. COMPARISON: CT abdomen pelvis on 05/17/2021 FINDINGS: VASCULAR FINDINGS Abdominal aorta: No stenosis or aneurysm. Celiac: The celiac arteries widely patent. There is conventional celiac anatomy. The hepatic artery and its branch vessels are patent. The proximal splenic artery is widely patent. Embolization coils are present beginning in the mid splenic artery extending to its hilar branches and into the known hilar splenic artery aneurysm. Metallic streak artifact slightly limits evaluation of aneurysmal filling. The aneurysm is similar in size compared to the preembolization CT measuring approximately 4 cm in maximum axial dimension. Intravascular contrast is noted in splenic hilar vessels however this is unclear whether this is secondary to persistent flow within the embolized main splenic artery versus filling via collateral vessels. There is increased prominence of dorsal pancreatic artery suggestive of possible collateralization. No new splenic artery aneurysms are present. SMA: Widely patent. Right renal artery: There are 2 RIGHT renal arteries both of which are widely patent. The accessory vessel supplies the lower pole and is located approximately 8 cm distal to the main vessel with its origin from the distal aorta. Left renal artery: There are 2 LEFT renal arteries both of which are widely patent with the origin of the accessory branch, which supplies the lower pole proximally 4 cm inferior to the dominant vessel. AFTAB: Widely patent. Right: Common iliac artery: Widely patent. External iliac artery: Widely patent. Internal iliac artery: Widely patent. Common femoral artery: Widely patent. Superficial femoral artery: The visualized aspects are widely patent. Profundus femoral artery: The visualized aspects are widely patent. Left: Common iliac artery: Widely patent. External iliac artery: Widely patent. Internal iliac artery: Widely patent. Common femoral artery: Widely patent. Superficial femoral artery: The visualized aspects are widely patent. Profundus femoral artery: The visualized aspects are widely patent. NON-VASCULAR FINDINGS Lower chest: Bibasilar atelectasis. No basilar mass, consolidation, or effusion. Liver: Normal. Bile ducts: Nondilated. Gallbladder: No calcified gallstones. Normal caliber wall. Pancreas: Partially obscured by metallic streak artifact from the splenic artery embolization coils. The main pancreatic duct is not dilated. No signs of pancreatic necrosis or suspicious lesion. Spleen: Focal volume loss in the mid and lower spleen consistent with evolution of previously reported infarct. No new infarct identified. Adrenals: Normal. Kidneys: Normal. Urinary Bladder: Normal. Lymph Nodes: No enlarged lymph nodes. Bowel: Colonic diverticulosis without diverticulitis. No dilated small or large bowel. The appendix and terminal ileum are normal. Peritoneum and mesentery: No ascites, free air, or loculated fluid collection. No mesenteric inflammation. Reproductive Organs: The prostate is large measuring 6.9 x 6.6 x 6.1 cm. Abdominal Wall: No mass, fluid collection, hematoma, or large ventral hernia. Osseous structures: Scattered age-related degenerative changes throughout the thoracolumbar spine with anterior disc osteophyte complexes, intervertebral disc height loss, and facet arthropathy. No suspicious osseous lesions are present. Procedure Note Harvinder Dean MD - 06/19/2022 EXAMINATION: CT ANGIOGRAM ABDOMEN AND PELVIS W CONTRAST (GENERIC) CLINICAL HISTORY: f/u splenic aneurysm repair TECHNIQUE: Helical CT angiogram of the abdomen and pelvis was performed following the intravenous administration of contrast. Administered 99.0 mlof OMNIPAQUE 350.00 mg/ml. Maximum intensity projection (MIP) werereformatted. Multiplanar images were reviewed and 3-D images were generated on anindepeMinor workstation. COMPARISON: CT abdomen pelvis on 05/17/2021 FINDINGS: VASCULAR FINDINGS Abdominal aorta: No stenosis or aneurysm. Celiac: The celiac arteries widely patent. There is conventional celiacanatomy. The hepatic artery and its branch vessels are patent. The proximalsplenic artery is widely patent. Embolization coils are present beginning in themid splenic artery extending to its hilar branches and into the known hilarsplenic artery aneurysm. Metallic streak artifact slightly limits evaluation of aneurysmal filling. The aneurysm is similar in size compared to the preembolization CT measuring approximately 4 cm in maximum axialdimension. Intravascular contrast is noted in splenic hilar vessels however this isunclear whether this is secondary to persistent flow within the embolized mainsplenic artery versus filling via collateral vessels. There is increasedprominence of dorsal pancreatic artery suggestive of possible collateralization. Nonew splenic artery aneurysms are present. SMA: Widely patent. Right renal artery: There are 2 RIGHT renal arteries both of which arewidely patent. The accessory vessel supplies the lower pole and is located approximately 8 cm distal to the main vessel with its origin from thedistal aorta. Left renal artery: There are 2 LEFT renal arteries both of which arewidely patent with the origin of the accessory branch, which supplies the lowerpole proximally 4 cm inferior to the dominant vessel. AFTAB: Widely patent. Right: Common iliac artery: Widely patent. External iliac artery: Widely patent. Internal iliac artery: Widely patent. Common femoral artery: Widely patent. Superficial femoral artery: The visualized aspects are widely patent. Profundus femoral artery: The visualized aspects are widely patent. Left: Common iliac artery: Widely patent. External iliac artery: Widely patent. Internal iliac artery: Widely patent. Common femoral artery: Widely patent. Superficial femoral artery: The visualized aspects are widely patent. Profundus femoral artery: The visualized aspects are widely patent. NON-VASCULAR FINDINGS Lower chest: Bibasilar atelectasis. No basilar mass, consolidation, oreffusion. Liver: Normal. Bile ducts: Nondilated. Gallbladder: No calcified gallstones. Normal caliber wall. Pancreas: Partially obscured by metallic streak artifact from the splenicartery embolization coils. The main pancreatic duct is not dilated. No signs of pancreatic necrosis or suspicious lesion. Spleen: Focal volume loss in the mid and lower spleen consistent withevolution of previously reported infarct. No new infarct identified. Adrenals: Normal. Kidneys: Normal. Urinary Bladder: Normal. Lymph Nodes: No enlarged lymph nodes. Bowel: Colonic diverticulosis without diverticulitis. No dilated small orlarge bowel. The appendix and terminal ileum are normal. Peritoneum and mesentery: No ascites, free air, or loculated fluidcollection. No mesenteric inflammation. Reproductive Organs: The prostate is large measuring 6.9 x 6.6 x 6.1 cm. Abdominal Wall: No mass, fluid collection, hematoma, or large ventralhernia. Osseous structures: Scattered age-related degenerative changes throughoutthe thoracolumbar spine with anterior disc osteophyte complexes,intervertebral disc height loss, and facet arthropathy. No suspicious osseous lesions arepresent. IMPRESSION Post embolization of hilar splenic artery aneurysm. The aneurysm isunchanged in size without sign of persistent perfusion within the aneurysm. There isexpected evolution of the known splenic infarct. There are signs of developmentof collateral flow to some of the segmental splenic artery branches likelyvia the dorsal pancreatic artery. Large prostate Thank you for letting us participate in the care of this patient. If youare a health care provider and have any questions regarding this report,please contact the number below. For patients who have questions please contactthe health rn managed care that requested your imaging first. Electronically signed by: Harvinder Dean MD, [facility]([phone]), at 06/19/2022 3:07 PM Dmitry Chaudhary MD IMG CT ORDERABLES documented in this encounter Visit Diagnoses Diagnosis 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 documented in this encounter Care Teams Mud Jack Nozzleman Relationship Specialty Start Date End Date González Luis DO [address] [place] [address] PCP - General Family Medicine 04/23/17 documented as of this encounter
--- OUTSIDE RECORDS SUMMARY | 2024-05-20 02:48 | XMS_ITS | Encounter Summary ---
Author Organization [facility] Address [facility] [place] [address] Care Team Providers Care Eyeglass Inspector Name Role Phone González Luis DO Primary Care Provider Encounter Details Date Type Department Care Team (Late st Contact Info) Description 03/18/2022 2:30 PM EDT TH Visit (TeleHealth) [place] [address] Laura Obrien MD [facility] [place] [address] Neuropathy; Myasthenic syndromes in other diseases classified elsewhere Social History Tobacco Use Types Packs/Day Years [...] Progress Notes * Laura Obrien MD - 03/18/2022 2:30 PM EDT Neurology Clinic Telephone/Telehealth Follow-up Note Per COVID19 Restrictions 03/18/22 10:37 AM Patient Name: Juan J Hardin : 1945 PCP: González Luis DO Patient ID: Juan J Hardin is a 76 y.o. male was evaluated remotely instead of scheduled FU visit. Last visit [facility], 01/13/22. Diagnosis: generalized, axonal, length dependent, sensorimotor neuropathy PMHx relevant to diagnosis: lumbar stenosis, suspected GMG Patient Active Problem List Diagnosis ??? Splenic artery aneurysm ??? Tgkbhip-Oknqc-Wmako disease ??? Gait abnormality Assessment from last visit, 01/13/2022: Juan J Hardin is a 76 y.o. 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 His procedure was complicated by [...] Follow-up: by TH to review cervical MRI. Interval History: No changes in his clinical status. Mestinon helsp with fatigue His current dose is as follows: Time 6A 10A 2P 6P 9P Tabs 1 2 2 2 1 Dose (mg) 60 120 120 120 60 480 mg Neuropathy symptoms static. He is getting some odd stabbing sensations in his feet every now and then - it feels like a cramping sensation. Some intercostal cramping; this is persistent and positional. Sometimes with coughing - no more frequent than last visit. No neck or back pain, unchanged. Strength is improving with work at the gym. He was recently started on an antihypertensive, amlodipine. It is not clear that he has had a dramatic change in cramping with the amlodipine. His new PCP is Dr. Dobbertin. Myasthenia Gravis Composite Scale: Ptosis, upward gaze [...] = 4 Difficult to understand = 6 1 Chewing Normal = 0 Fatigue w/ solid [...] 4 Severe weakness = 5 0 Total: 2 Relevant work up: I independently reviewed the cervical MRI performed 01/28/2022. This failed to identify evidence forcompressive myelopathy although there was some cervical spondylosis with multilevel canal narrowingnot significantly changed from prior imaging studies. NCS/EMG IMPRESSION, 01/23/21: Abnormal study. Persistent and unchanged evidence of length-dependent, sensorimotor axonal neuropathy that is not significantly changed from prior study dated 07/06/2017. There is no evidence to support a post-synaptic neuromuscular junction defect. There is evidence to support right L5-S1 radiculopathy. Clinical and radiologic correlation is recommended. Medications: Medications 01/13/22 0214 Medication Sig Taking? cetirizine (ZyrTEC) 10 mg [...] Filter Mask [Facial Mask] ??? Pollen Extracts Assessment / Plan: Juan J Hardin is a 76 y.o. 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 We reviewed the cervical MRI today which did reveal some spondylosis but nothing that would put thecervical spinal cord at risk for myelopathy. He does have some accumulation of neuroforaminal narrowing but this does not correlate well with his clinical presentation. He is doing really fairly well with his current regimen of pyridostigmine. We talked about the possibility of advancing his therapeutic regimen; however, I would be reluctant to use immunosuppressiveagents unless he developed more significant weakness and functional change on MG composite score. He is in agreement and feels that his current regimen of Mestinon is allowing him to function reasonably comfortably. If we did consider an immunomodulatory option, I would first like to complete a single-fiber EMG. We did discuss some new lancinating pains that he is developed as part of his neuropathy. I think this certainly may be part of the underlying neuropathy, but would like to repeat some blood work to ensure he is not developing a superimposed metabolic process that could be affecting his nerves. Orders Placed This Encounter Procedures ??? TSH ??? Protein Electrophoresis, serum ??? Vitamin B12 ??? Methylmalonic acid, serum ??? Comprehensive metabolic panel (non-fasting) ??? Vitamin B6 I have not made any changes to his regimen. Follow-up: 6 months, in clinic or telehealth LAURA OBRIEN MD [facility] Agricultural Extension Educator, Neuromuscular Medicine [facility] 03/18/22 10:37 AM Patient provided verbal consent prior to initiation of this telephone/televisit encounter and expressed understanding that the telephone/televisit may be billed similar to a clinic visit. I spent a total of 30 Minutes in discussion/counseling related to ongoing medical problems, with 10minutes in same day chart and test review, ordering testing/drugs, coordination of care and documentation. documented in this encounter Plan of Treatment Upcoming Encounters Date Type Department Care Team (Late st Contact Info) Description 06/13/2024 3:00 PM EDT [place] [address] Laura Obrien MD [facility] [place] [address] 12/12/2024 3:30 PM EST [place] [address] Laura Obrien MD [facility] [place] [address] documented as of this encounter Results * Vitamin B6 (06/19/2022 11:26 AM EDT) [facility] Vitamin B6 26 5 - 50 mcg/L [facility] Comment: ADDITIONAL INFORMATION This test was developed and its performance characteristics determined by [facility] in a manner consistent with CLIA requirements. This test has not been cleared or approved by the U.S. Food and Drug Administration. Test Performed by: [facility] - [address], [place] [address] Director Loss Prevention: Franck Spicer M.D. Ph.D.; CLIA# [id number] Blood 06/19/2022 11:2 6 AM EDT 06/19/2022 4:07 PM EDT Narrative Resulting Agency Comment Spec In Lab Laura Obrien MD CHEMISTRY ORDERABLE S [facility] [place] [address] * Comprehensive metabolic panel (non-fasting) (06/19/2022 11:26 AM EDT) Glucose Lvl 92 65 - 199 mg/dL [facility] Comment:Diabetes: >=200 mg/d L plus symptoms BUN 18 10 - 20 mg/dL [facility] Creatinine 0.93 0.80 - 1.50 mg/dL [facility] Sodium 141 135 - 145 mmol/L [facility] Potassium 4.1 3.5 - 5.0 mmol/L [facility] Comment: Please note: ??Patients with WBC >100,000 may have falsely elevated Potassium levels. ??For accurate Potassium quantification in these patients send serum separator tube (gold top) for subsequent determinations. ??Contact the Clinical Chemistry Laboratory if there are any questions. Chloride 104 98 - 107 mmol/L [facility] CO2 27 22 - 31 mmol/L [facility] Anion Gap 10 5 - 15 mmol/L [facility] Calcium 9.3 8.5 - 10.5 mg/dL [facility] Total Protein 7.0 6.1 - 8.0 g/dL [facility] Albumin 4.2 3.2 - 5.2 g/dL [facility] AST 37 0 - 39 unit/L [facility] ALT 23 0 - 55 unit/L [facility] Alk Phos 68 40 - 130 unit/L [facility] Total Bilirubin 0.5 0.2 - 1.3 mg/dL [facility] Estimated GFR 85 >=60 mL/min/1. 73 m?? [facility] Comment: This patient's estimated GFR was [...] Resulting Agency Comment Spec In Lab Laura Obrien MD CHEMISTRY ORDERABLE S [facility] [place] [address] * Methylmalonic acid, serum (06/19/2022 11:26 AM EDT) Methylmalonic Acid 0.21 <=0.40 nmol/mL [facility] Comment: ADDITIONAL INFORMATION This test was developed and its performance characteristics determined by [facility] in a manner consistent with CLIA requirements. This test has not been cleared or approved by the U.S. Food and Drug Administration. Test Performed by: [address] [address] Director Loss Prevention: Franck Spicer M.D. Ph.D.; CLIA# [id number] Blood 06/19/2022 11:2 6 AM EDT 06/19/2022 3:51 PM EDT Narrative Resulting Agency Comment Spec In Lab Laura Obrien MD CHEMISTRY ORDERABLE S Performing Organization Address City/[facility]/ZIP Co de Phone Number [facility] [place] [address] * Vitamin B12 (06/19/2022 11:26 AM EDT) Vitamin B-12 431 232 - 1,245 pg/mL [facility] Blood 06/19/2022 11:2 6 AM EDT 06/19/2022 11:34 AM EDT Narrative Resulting Agency Comment Spec In Lab Laura Obrien MD CHEMISTRY ORDERABLE S Performing Organization Address [facility] Co de Phone Number [facility] [place] [address] * Protein Electrophoresis, serum (06/19/2022 11:26 AM EDT) Total Prot Elec 6.5 6.1 - 8.0 g/dL [facility] Albumin Elect 4.24 3.20 - 5.20 g/dL [facility] Alpha1-Globulin 0.17 0.10 - 0.30 g/dL [facility] Alpha2-Globulin 0.62 0.40 - 0.90 g/dL [facility] Beta Globulin 0.65 0.50 - 1.00 g/dL [facility] Gamma Globulin 0.82 0.50 - 1.30 g/dL [facility] M1 Band Comments Below None Detected [facility] SPEP Comments See Note [facility] Comment: Immunofixation (JUDE) and quantitative immunoglobulin (AYAN) testing will be performed on this sample per MD request. Blood 06/19/2022 11:2 6 AM EDT 06/19/2022 11:34 AM EDT Narrative Resulting Agency Comment Spec In Lab Laura Obrien MD CHEMISTRY ORDERABLE S Performing Organization Address City/[facility]/ZIP Co de Phone Number [facility] [place] [address] * TSH (06/19/2022 11:26 AM EDT) TSH 3.18 0.27 - 4.20 mcIU/mL [facility] Comment: Reference Interval (mcIU/mL): Females: ??First Trimester: 0.23-3.88 ??Second Trimester: 0.22-3.90 ??Third Trimester: 0.44-4.66 Blood 06/19/2022 11:2 6 AM EDT 06/19/2022 11:34 AM EDT Narrative Resulting Agency Comment Spec In Lab Laura Obrien MD CHEMISTRY ORDERABLE S [facility] [place] [address] documented in this encounter Visit Diagnoses Diagnosis Neuropathy Mononeuritis of unspecified site Myasthenic syndromes in other diseases classified elsewhere documented in this encounter Care Teams Eyeglass Inspector Relationship Specialty Start Date End Date González Luis DO [address] [place] [address] PCP - General Family Medicine 04/23/17 documented as of this encounter
--- OUTSIDE RECORDS SUMMARY | 2024-05-20 02:48 | XMS_ITS | Encounter Summary ---
Author Organization [facility] Address [facility] [place] [address] Care Team Providers Care Business Support Professional Name Role Phone González Luis DO Primary Care Provider Encounter Details Date Type Department Care Team (Late st Contact Info) Description 05/04/2023 3:00 PM EDT [place] [address] Laura Obrien MD [facility] [place] [address] Neuropathy; Myasthenic syndromes in other diseases classified elsewhere; Spinal stenosis of lumbar region, unspecified whether neurogenic claudication present Social History Tobacco Use Types Packs/Day Years [...] Sign Reading Time Taken Comments Blood Pressure 132/93 05/04/2023 2:38 PM EDT Pulse 60 05/04/2023 2:38 PM EDT Temperature - - Respiratory Rate - - Oxygen Saturation - - Inhaled Oxygen Concentration - - Weight 87.8 kg (193 lb 9.6 oz) 05/04/2023 2:38 P M EDT Height 181 cm (5' 11.25) 05/04/2023 2:38 PM EDT Body Mass Index 26.81 05/04/2023 2:38 PM EDT documented in this encounter Progress Notes * Laura Obrien MD - 05/04/2023 3:00 PM EDT Neurology Clinic Telephone/Telehealth Follow-up Note Per COVID19 Restrictions 05/04/23 3:53 PM Patient Name: Juan J Hardin : 1945 PCP: González Luis DO Patient ID: Juan J Hardin is a 77 y.o. male was evaluated remotely instead of scheduled FU visit. Last visit wasby telehealth, 08/26/2022. 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 Today we discussed alternate ways to take Mestinon and testing for whether this will impact HR/fatigue sensation. We have not made any other changes in his regimen. Follow-up: 6 month Interval History: His fatigue is a lot better. His endurance is still poor. He gets tired quickly. He no longer feels a boost from the Mestinon. No side effects. HR high 40's to 50's; he struggles to get it up to 120's while working out. Atrial fibrillation was identified. This remains paroxysmal and he is on xarelto for this. He is getting his interosseous muscles back. Mestinon: 6A/10A/2P/6P/9P: he sometimes holds the night time dose. He occasionally has trouble swallowing - this is not food specific and he cannot tel if its time specific; possibly when he needs a Mestinon. He notes some intermittent hoarseness. He has a fib - he is on metoprolol. Vision fine. Myasthenia Gravis ADL: Talking normal = 0 intermittent slurring or nasal speech = 1 Constant slurring/nasal but can be understood = 2 Difficult to understand = 3 1 Chewing Normal = 0 Fatigue w/ solid food = 1 Fatigue w/ soft food = 2 Gastric tube = 3 0 Swallowing Normal = 0 Rare episode of choking/trouble swallowing = 1 Freq trouble choking requiringchanges in diet = 2 Gastric tube = 3 1 Breathing (caused by MG) Normal = 0 SOB with exertion = 1 SOB at rest = 2 Ventilator dependence = 30 Impairment of ability to brush teeth or comb hair Normal = 0 Extra effort, but no rest periods needed = 1 Rest periods needed = 2 Cannot do these functions = 3 0 Impairment of ability to rise from a chair Normal = 0 Mild, sometimes uses arms = 1 Moderate, always uses arms = 2 Severe, requires assistance = 3 0 Diplopia None = 0 Occurs, but not daily = 1 Daily, but not constant = 2 Constant = 3 0 Ptosis None = 0 Occurs, but not daily = 1 Daily, but not constant = 2 Constant = 3 0 Total: 2 Myasthenia Gravis Composite Scale: Ptosis, upward gaze [...] 0 Intermittent slurring or nasal speech = 1 Constant slurring/nasal but can be understood = [...] flexion Normal = 0 Mild weakness = 1 Moderate weakness (~50%) = 4 Severe weakness = 5 0 Total: 2 Mestinon dosing: Time 6A 10A 2P 6P 9P Tabs 1-2 1-2 1-2 1-2 1-2 Dose (mg) 120 120 120 120 60 480 mg . Relevant work up: Component Latest Ref Rng & Units 06/19/2022 Glucose Lvl 65 - 199 mg/dL 92 BUN 10 - 20 mg/dL 18 Creatinine 0.80 - 1.50 mg/dL 0.93 Sodium 135 - 145 mmol/L 141 Potassium 3.5 - 5.0 mmol/L 4.1 Chloride 98 - 107 mmol/L 104 CO2 22 - 31 mmol/L 27 Anion Gap 5 - 15 mmol/L 10 Calcium 8.5 - 10.5 mg/dL 9.3 Total Protein 6.1 - 8.0 g/dL 7.0 Albumin 3.2 - 5.2 g/dL 4.2 AST 0 - 39 unit/L 37 ALT 0 - 55 unit/L 23 Alk Phos 40 - 130 unit/L 68 Total Bilirubin 0.2 - 1.3 mg/dL 0.5 Estimated GFR >=60 mL/min/1.73 m?? 85 Total Prot Elec 6.1 - 8.0 g/dL 6.5 Albumin Elect 3.20 - 5.20 g/dL 4.24 Alpha1-Globulin 0.10 - 0.30 g/dL 0.17 Alpha2-Globulin 0.40 - 0.90 g/dL 0.62 Beta Globulin 0.50 - 1.00 g/dL 0.65 Gamma Globulin 0.50 - 1.30 g/dL 0.82 M1 Band None Detected Comments Below SPEP Comments See Note IgG 700 - 1,600 mg/dL 917 IgA 70 - 400 mg/dL 229 IgM 40 - 230 mg/dL 141 Vitamin B6 5 - 50 mcg/L 26 Methylmalonic Acid <=0.40 nmol/mL 0.21 Vitamin B-12 232 - 1,245 pg/mL 431 TSH 0.27 - 4.20 mcIU/mL 3.18 JUDE No abnormality No past medical history on file. Medications: Medications 05/04/23 1441 Medication Sig Taking? rivaroxaban (Xarelto) 20 mg Tablet Take 20 mg by mouth daily. Yes metoprolol succinate XL (Toprol-XL) 25 mg Tablet Sustained Release 24 hr Take 25 mg by mouth daily.Yes cetirizine (ZyrTEC) 10 mg Tablet Take 10 mg by mouth daily. Yes pyridostigmine (MESTINON) 60 mg Tablet Take 0.5 tablets by mouth 3 times daily. Patient taking differently: Take 60 mg by mouth daily. Takes at 6 am, 10 am, 2 pm, 6 pm, 9 pm; takes 1 or 2 tablets based on his symptoms at the time Indications: 7 60mg tabs per day Yes levothyroxine (SYNTHROID) 50 mcg Tablet Take 50 mcg by mouth daily. Yes tamsulosin (FLOMAX) 0.4 mg Capsule, Sust. Release 24 hr Take 2 capsules by mouth daily. Yes meclizine (ANTIVERT) 25 mg Tablet Take 25 mg by mouth 3 times daily as needed. Yes Allergy: Allergies Allergen Reactions Dust & Pollen Filter Mask [Facial Mask] Pollen Extracts Physical Exam: BP (!) 132/93 (BP Location (NBP): Right arm, Patient Position: Sitting, BP Cuff Sizes: Adult (25-34cm)) Pulse 60 Ht 181 cm (5' 11.25) Wt 87.8 kg (193 lb 9.6 oz) BMI 26.81 kg/m?? Appearance: The patient is a healthy-appearing male who appears of stated age and comes to his visit unaccompanied. he appears well developed and well nourished. Mental status: The patient is alert and calm with MS intact to detailed questioning regarding his history. his speech and language is intact to normal conversation and examination commands; speech fluent. his attention and concentration allow for a full evaluation without evidence for deficit. Short- term and long-term memory are normal. Cranial nerves: EOMI with some reported diplopia. Facial movements are normal. No evidence of dysphonia or hoarseness of voice. Motor: Strength is 5/5 in muscles proximally and distally with the exception of thumb abduction L>R, rated at 4+ on the left, 5- on the right. Sensory: Vibration: Ltoe nt Rtoe nt LMM 0 RMM 0 Lknee 3 Rknee 2 LDIP2 8 RDIP2 8 LDIP5 8 LDIP5 8 Proprioception: preserved distally and proximally Coordination: No ataxia Gait and station: Able to rise from a seated position without the use of the arms. His gait is deliberate but steady. He is able to rise on toes and heels. Tendon reflexes: biceps triceps BR patellar AJ Plantars Right 1+ 1+ 1 2+ 0 mute Left 2 1+ 1+ 2+ 0 mute No clonus. Tendon reflexes: Arc Right Left Comments Biceps tendon C5-C6 1+ 2 Brachioradialis tendon C5-C6 1 1+ Triceps tendon C6-C7 1+ 1+ Finger flexor (Olayinka) C8-T1 abs abs Patellar ligament L3-L4 2+ 2+ Plantar (Babinski) L5-S1 mute mute Achilles tendon S1-S2 0 0 Assessment / Plan: Juan J Hardin is a 77 y.o. [...] Plan to optimize Mestinon. Follow-up: 6 month LAURA OBRIEN MD [facility] Air Hammer Stripper, Neuromuscular Medicine [facility] 05/04/23 3:53 PM Patient provided verbal consent prior to initiation of this telephone/televisit encounter and expressed understanding that the telephone/televisit may be billed similar to a clinic visit. I spent a total of 34 Minutes in discussion/counseling related to ongoing medical problems, with 7 minutes in same day chart and test review, ordering testing/drugs, coordination of care and documentation. documented in this encounter Plan of Treatment Upcoming Encounters Date Type Department Care Team (Late st Contact Info) Description 06/13/2024 3:00 PM EDT [place] [address] Lauar Obrien MD [facility] [place] [address] 12/12/2024 3:30 PM EST [place] [address] Laura Obrien MD [facility] [place] [address] documented as of this encounter Visit Diagnoses Diagnosis Neuropathy Mononeuritis of unspecified site Myasthenic syndromes in other diseases classified elsewhere Spinal stenosis of lumbar region, unspecified whether neurogenic claudication present documented in this encounter Care Teams Business Support Professional Relationship Specialty Start Date End Date González Luis DO [address] [place] [address] PCP - General Family Medicine 04/23/17 documented as of this encounter
--- OUTSIDE RECORDS SUMMARY | 2024-05-20 02:48 | XMS_ITS | Encounter Summary ---
Author Organization [place] [address] Care Team Providers Care Wire Drawing Die Maker Name Role Phone González Luis DO Primary Care Provider Reason for Referral * Diagnostic Test (Routine) - Closed Specialty Diagnoses / Procedures Referred By Contac t Referred To Contact Radiology Diagnoses Fatigue, unspecified type Gait disturbance Procedures MRI Cervical Spine wwo Contrast MRI Cervical Spine wo Contrast (Generic) Laura Chavez MD [facility] [place] [address] [place] [address] Referral ID Status Reason Start Date Expiration Date V isits Requested Visits Authorized [id number] Closed Specialty Service Requested 01/13/2022 07/16/2023 1 1 Reason for Visit * Diagnostic Test (Routine) - Closed Specialty Diagnoses / Procedures Referred By Contac t Referred To Contact Radiology Diagnoses Fatigue, unspecified type Gait disturbance Procedures MRI Cervical Spine wwo Contrast MRI Cervical Spine wo Contrast (Generic) Laura Chavez MD [facility] [place] [address] [place] [address] Referral ID Status Reason Start Date Expiration Date V isits Requested Visits Authorized [id number] Closed Specialty Service Requested 01/13/2022 07/16/2023 1 1 Encounter Details Date Type Department Care Team (Latest Contact Info) Description 01/28/2022 12:17 PM EDT - 01/28/2022 11:59 PM EDT Hospital Encounter MRI at [facility] [place] [address] Laura Chavez MD [facility] [place] [address] Fatigue, unspecified type; Gait disturbance Discharge Disposition: Home Social History Tobacco Use Types Packs/Day Years [...] AM EDT documented as of this encounter Medications at Time of Discharge Medication Sig Dispensed Refills Start Date End Date pyridostigmine (MESTINON) 60 mg TabletIndications:Fatig ue, unspecified type Take 0.5 tablets by mouth 3 times daily. 30 tablet 1 07/05/2019 levothyroxine (SYNTHROID) 50 mcg Tablet Take 50 mcg by mouth daily. tamsulosin (FLOMAX) 0.4 mg Capsule, Sust. Release 24 hr Take 2 capsules by mouth daily. 01/27/2017 meclizine (ANTIVERT) 25 mg Tablet Take 25 mg by mouth 3 times daily as needed. cetirizine (ZyrTEC) 10 mg Tablet Take 10 mg by mouth daily. 11/10/2023 fluticasone-salmeterol (ADVAIR) 250-50 mcg/dose Disk with Device Inhale 1 puff into the lungs 2 times daily as needed. 08/21/2022 aspirin 325 mg Tablet Take 325 mg by mouth daily. 08/21/2022 multivitamin (THERAGRAN) Tablet Take 1 tablet by mouth daily. 08/21/2022 albuterol 90 mcg/actuation HFA Aerosol Inhaler Inhale 2 puffs into the lungs every 4 hours as needed for Wheezing. Use with spacer 08/21/2022 documented as of this encounter Plan of Treatment Upcoming Encounters Date Type Department Care Team (Late st Contact Info) Description 06/13/2024 3:00 PM EDT [place] [phone] Laura Chavez MD [facility] [place] [address] 12/12/2024 3:30 PM EST [place] [phone] Laura Chavez MD [facility] [place] [address] documented as of this encounter Procedures Procedure Name Priority Date/Time Associated Diagnosis Comments MRI CERVICAL SPINE WITH/WO CONTRAST Routine 01/28/2022 2:25 PM EDT Fatigue, unspecified type Gait disturbance documented in this encounter Results * MRI Cervical Spine [...] who have questions please contact the health manager care management that requested your imaging first. ? Electronically signed by: Darell Schneider MD, [facility] ([phone]), at 01/28/2022 4:16 PM Narrative 01/28/2022 4:16 [...] loss of the intervertebral disc space at [id number] with partial fusion of the vertebral bodies. [...] the resident's interpretationand agree with the findings, Draell Schneider MD at 01/28/2022 4:16 PM Thank you for letting us participate in the care of this patient. If youare a health care provider and have any questions regarding this report,please contact the number below. For patients who have questions please contactthe health manager care management that requested your imaging first. Electronically signed by: Darell Schneider MD, [facility]([phone]), at 01/28/2022 4:16 PM Authorizing Provider Result Pao Chavez MD IMG MRI ORDERABLES documented in this encounter Visit Diagnoses Diagnosis Fatigue, unspecified type Gait disturbance Abnormality of gait documented in this encounter Administered Medications Inactive Administered Medications - up to 3 most recent administrations Medication Order MAR Action Action Date Dose Rate Site gadoterate meglumine (Dotarem) (0.5 mMol/mL) injection solution 0-100 mL 0-100 mL, Intravenous, ONCE PRN, 1 dose, Starting on Thu01/28/22 at 1319, Until Thu01/28/22 at 1353, Per Protocol, Radiology Contrast, Routine Given 01/28/2022 1:53 PM EDT 17 mLs documented in this encounter Care Teams Wire Drawing Die Maker Relationship Specialty Start Date End Date González Luis DO [address] [place] [address] [facility] [address] [place] [address] PCP - General Family Medicine 04/23/17 documented as of this encounter
--- OUTSIDE RECORDS SUMMARY | 2024-05-20 02:48 | XMS_ITS | Encounter Summary ---
Author Organization [facility] Address [facility] [place] [address] Care Team Providers Care Supervisor Coffee Name Role Phone González Luis DO Primary Care Provider [phone] Encounter Details Date Type Department Care Team (Late st Contact Info) Description 11/28/2021 10:00 AM EST Office [place] [address] Kvng Chaudhary MD [facility] [place] [address] Splenic artery aneurysm Social History Tobacco Use [...] Sign Reading Time Taken Comments Blood Pressure 142/81 11/28/2021 10:11 AM EST Pulse 58 11/28/2021 10:11 AM EST Temperature - - Respiratory Rate - - Oxygen Saturation - - Inhaled Oxygen Concentration - - Weight 87.5 kg (193 lb) 11/28/2021 10:11 AM EST Height 182.9 cm (6') 11/28/2021 10:11 AM EST Body Mass Index 26.18 11/28/2021 10:11 AM EST documented in this encounter Progress Notes * Kvng Chaudhary MD - 11/28/2021 10:00 AM EST OUTPATIENT VASCULAR SURGERY CONSULTATION Reason for Visit: Splenic artery aneurysm s/p coil embolization History of Present Illness: This is a 76 y.o. 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 The patient was asymptomatic. Now s/p coil embolization 04/08. Pt developed partial splenic infarction post procedure. States he is doing well. reports that he quit smoking about 54 years ago. His smoking use included cigarettes. He has never used smokeless tobacco. Patient Active Problem List Diagnosis Code ??? Gait abnormality R26.9 ??? Habmrqd-Timmh-Qwhjm disease G60.0 ??? Splenic artery aneurysm I72.8 Current Outpatient Medications: ??? cetirizine (ZyrTEC) 10 mg Tablet, Take [...] daily as needed., Disp: , Rfl: ??? multivitamin (THERAGRAN) Tablet, Take 1 tablet by mouth daily., Disp: , Rfl: ??? albuterol 90 mcg/actuation HFA Aerosol Inhaler, Inhale 2 puffs into the lungs every 4 hours as needed for Wheezing. Use with spacer, Disp: , Rfl: Allergies Allergen Reactions ? ? Dust & [...] for Thrombosis, Bleeding Disorders Physical Exam: BP 142/81 (BP Location (NBP): Left arm, Patient Position: Sitting, BP Cuff Sizes: Adult (25-34 cm)) Pulse 58 Ht 182.9 cm (6') Wt 87.5 kg (193 lb) BMI 26.18 kg/m?? General - NAD, appears stated age Neuro - Alert and Oriented, Motor Sensory grossly intact Psych- alert oriented X3 , Extremities - Warm, pink, no edema, brisk capillary refill Vascular Exam: R L Carotid 2/2 bruit () 2/2 bruit () Radial 2/2 2/2 Femoral Popliteal DP PT Labs: Recent Results (from the past 72 hour(s)) Duplex Study Visceral Arteries, Comp Result Value Ref Range VB Text Report Department: Vascular Surgery Lab Patient: [id number] (VALERIANO HARDIN) CPT: 57008 Referring Physician: KVNG CHAUDHARY Indications: s/p coil embolization of splenic artery aneurysm, ? patency Findings: Unilateral Waveform PSV cm/s EDV cm/s Patent Jessica Visceral Aorta 86 13 Celiac Artery, Proximal Mckenzie-Biphasic 102 27 Celiac Artery, Mid Mckenzie-Biphasic 85 31 Celiac Artery, Distal Mckenzie-Biphasic 73 20 Sup Mes Artery Proximal Bi-Triphasic 161 32 Sup Mes Artery Middle Bi-Triphasic 117 18 Sup Mes Artery Distal Biphasic 57 0 Hepatic Artery Mckenzie-Biphasic 115 35 Splenic Artery No Vis Inf Mes Artery Bi-Triphasic 137 13 Interpretation: Patent celiac, superior mesenteric, proximal inferior mesenteric, and proximal hepatic arteries with no evidence of hemodynamically significant stenosis. No identifiable change when compared to the previous exam. Unable to visualize splenic vein due to overlying bowel gas. Unable to visualize coil embolization/ aneurysm sac in the splenic artery. Previously on 03/29/21 (pre- coil embolization) the splenic artery aneurysm the distal segment of the artery measuring approximately 3.5 x 3.4 cm in diameter . VB Text Report End of Report Studies: IMPRESSION ?? Post splenic artery aneurysm calcification since the previous study with resultant partial splenic infarction. No flowsheet data found. Assessment and Plan: Pt with successful coil embolization of splenic artery aneurysm. Had some symptoms that could be related to a combination of aneurysm thrombosis and partial splenic infarct. He has enough residual spleen that he does not need pneumococcal vaccines. RTC 6 months with CTA of splenic aneurysm repair. documented in this encounter Plan of Treatment Upcoming Encounters Date Type Department Care Team (Late st Contact Info) Description 06/13/2024 3:00 PM EDT [place] [address] Laura Chavez MD [facility] [place] [address] 12/12/2024 3:30 PM EST [place] [address] Laura Chavez MD [facility] [place] [address] documented as of this encounter Visit Diagnoses Diagnosis 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 documented in this encounter Care Teams Supervisor Coffee Relationship Specialty Start Date End Date González Luis DO [address] [place] [address] PCP - General Family Medicine 04/23/17 documented as of this encounter
--- OUTSIDE RECORDS SUMMARY | 2024-05-20 02:48 | XMS_ITS | Encounter Summary ---
Author Organization [facility] Address [facility] [place] [address] Care Team Providers Care Access Services Librarian Name Role Phone González Luis DO Primary Care Provider [phone] Encounter Details Date Type Department Care Team (Late st Contact Info) Description 08/26/2022 1:00 PM EST TH Visit (TeleHealth) [place] [address] Laura Obrien MD [facility] [place] [address] Neuropathy; Myasthenic syndromes in other diseases classified elsewhere ; Fatigue, unspecified type; Spinal stenosis of lumbar region, unspecified whether [...] Progress Notes * Laura Obrien MD - 08/26/2022 1:00 PM EST Neurology Clinic Telephone/Telehealth Follow-up Note Per COVID19 Restrictions 08/26/22 8:20 AM Patient Name: Juan J Morales Lashawn : 1945 PCP: González Luis DO Patient ID: Juan J Hardin is a 77 y.o. male was evaluated remotely instead of scheduled FU visit. [facility]. Diagnosis: generalized, axonal, length dependent, sensorimotor neuropathy PMHx relevant to diagnosis: lumbar stenosis, suspected GMG Patient Active Problem List Diagnosis ??? Splenic artery aneurysm ??? Iqjqdns-Tkwfi-Bamzz disease ??? Gait abnormality Assessment from last visit, 03/18/2022. Juan J Hardin is a 76 y.o. [...] process that could be affecting his nerves. I have not made any changes to his regimen. Interval History: His symptoms have been fairly stable. Neuropathy symptoms static. He has been having some cramping over the anterolateral compartment of 1 leg - described as burning. Not radicular in nature. He had a period of being sedentary relating to Non-covid illness. He has a fib - he is on metoprolol. He does have trouble with specific foods. Vision fine. He feels like he is plateau'ed now at the gym. He has a lot of trouble with his ankles. His back bothers him everyday. This is persistent low back ache. Myasthenia Gravis Composite Scale: Ptosis, upward gaze [...] 120 120 120 120 60 480 mg There are some days he feels he may not even need the medication. There are other when he feels like he his voice is hoarse. Relevant work up: Component Latest Ref Rng [...] past medical history on file. Medications: Medications 08/21/22 1237 Medication Sig Taking? rivaroxaban (Xarelto) 20 mg [...] daily as needed. Allergy: Allergies Allergen Reactions ? ? Dust [...] changes in his regimen. Follow-up: 6 month LAURA OBRIEN MD [facility] Inside Sales Account Executive, Neuromuscular Medicine [facility] 08/26/22 8:20 AM Patient provided verbal consent prior to initiation of this telephone/televisit encounter and expressed understanding that the telephone/televisit may be billed similar to a clinic visit. I spent a total of 25 Minutes in discussion/counseling related to ongoing medical problems, with 7 minutes in same day chart and test review, ordering testing/drugs, coordination of care and documentation. documented in this encounter Plan of Treatment Upcoming Encounters Date Type Department Care Team (Late st Contact Info) Description 06/13/2024 3:00 PM EDT [place] [address] Laura Obrien MD [facility] [place] [address] 12/12/2024 3:30 PM EST [place] [address] Laura Obrien MD [facility] [place] [address] documented as of this encounter Visit Diagnoses Diagnosis Neuropathy Mononeuritis of unspecified site Myasthenic syndromes in other diseases classified elsewhere Fatigue, unspecified type Spinal stenosis of lumbar region, unspecified whether neurogenic claudication present documented in this encounter Care Teams Access Services Librarian Relationship Specialty Start Date End Date González Luis DO [address] [place] [address] PCP - General Family Medicine 04/23/17 documented as of this encounter
--- OUTSIDE RECORDS SUMMARY | 2024-05-20 02:48 | XMS_ITS | Encounter Summary ---
Author Organization [facility] [place] [address] Care Team Providers Care Pellet Machine Operator Name Role Phone González Luis DO Primary Care Provider Encounter Details Date Type Department Care Team (Late st Contact Info) Description 11/28/2021 9:00 AM EST Tech [place] [phone] Michael Beck Splenic artery aneurysm Social History Tobacco Use [...] 3:00 PM EDT Office [place] [phone] Laura Cahvez MD [facility] [place] [address] 12/12/2024 3:30 PM EST Office [place] [phone] Laura Chavez MD [facility] [place] [address] documented as of this encounter Procedures Procedure Name Priority Date/Time Associated Diagnosis Comments MESENTERIC COMPLETE Routine 11/28/2021 9 :05 AM EST Splenic artery aneurysm documented in this encounter Results * Duplex Study Visceral Arteries, Comp (11/28/2021 9:05 AM EST) VB Text Report Department: Vascular Surgery Lab Patient: [id number] (VALERIANO HARDIN) CPT: 60974 Referring Physician: KVNG PRINCE ?? Indications: s/p coil embolization of splenic artery aneurysm, ? patency Findings: Unilateral ? Waveform ? PSV cm/s ??EDV cm/s ??Patent ?? Jessica Visceral Aorta ? 86 ?13 ? Celiac Artery, Proximal ??Waller-Biphasic ? 102 ?27 ? Celiac Artery, Mid ? Waller-Biphasic ?85 ?31 ? Celiac Artery, Distal ?Waller-Biphasic ?73 ?20 ? Sup Mes Artery Proximal ??Bi-Triphasic ?161 ?32 ? Sup Mes Artery Middle ?Bi-Triphasic ?117 ?18 ? Sup Mes Artery Distal ?Biphasic ? 57 ? 0 ? Hepatic Artery ? Waller-Biphasic ? 115 ?35 ? Splenic Artery ?No Vis ?? Inf Mes Artery ? Bi-Triphasic ?137 ?13 ? Interpretation: Patent celiac, superior mesenteric, proximal inferior [...] 3.5 x 3.4 cm in diameter . Electronically Signed by: KVNG PRINCE on 2021-11-28 11:40:24 AM [facility] VB Text Report End of Report [facility] 11/28/2021 9:05 AM EST Kvng Prince MD VASCULAR ORDERABLES [facility] documented in this encounter Visit Diagnoses Diagnosis 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 documented in this encounter Care Teams Pellet Machine Operator Relationship Specialty Start Date End Date González Luis DO [address] [place] [address] PCP - General Family Medicine 04/23/17 documented as of this encounter
--- OUTSIDE RECORDS SUMMARY | 2024-05-20 02:48 | XMS_ITS | Encounter Summary ---
Author Organization [facility] Address [facility] [place] [address] Care Team Providers Care Supervising Airplane Pilot Name Role Phone González Luis DO Primary Care Provider [phone] Encounter Details Date Type Department Care Team (Latest Contact Info) Description 05/04/2023 Travel Social History Tobacco Use Types Packs/Day Years [...] 3:00 PM EDT Office [place] [phone] Laura Chavez MD [facility] [place] [address] 12/12/2024 3:30 PM EST Office [place] [phone] Laura Chavez MD [facility] [place] [address] documented as of this encounter Visit Diagnoses Not on filedocumented in this encounter Care Teams Supervising Airplane Pilot Relationship Specialty Start Date End Date González Luis DO [address] [facility] [address] [place] [address] PCP - General Family Medicine 04/23/17 documented as of this encounter
--- OUTSIDE RECORDS SUMMARY | 2024-05-20 02:48 | XMS_ITS | Encounter Summary ---
Author Organization [facility] Address [facility] [place] [address] Care Team Providers Care Historical Guide Name Role Phone González Luis DO Primary Care Provider [phone] Reason for Visit * Reason Onset Date Comments Bumped Appointment 09/02/2021 Encounter Details Date Type Department Care Team (Late st Contact Info) Description 09/02/2021 [place] [address] Laura Chavez MD [facility] [place] [address] Bumped Appointment Social History Tobacco Use Types Packs/Day [...] encounter Miscellaneous Notes * Telephone Encounter - Yoko Townsend - 09/02/2021 1:44 PM EST Reschedule 11/04/[address] Chavez from Past tab. documented in this encounter Plan of Treatment Upcoming Encounters Date Type Department Care Team (Late st Contact Info) Description 06/13/2024 3:00 PM EDT [place] [address] Laura Chavez MD [facility] [place] [address] 12/12/2024 3:30 PM EST [place] [address] Laura Chavez MD [facility] [place] [address] documented as of this encounter Visit Diagnoses Not on filedocumented in this encounter Care Teams Historical Guide Relationship Specialty Start Date End Date González Luis DO [address] [place] [address] PCP - General Family Medicine 04/23/17 documented as of this encounter
--- OUTSIDE RECORDS SUMMARY | 2024-05-20 02:48 | XMS_ITS | Encounter Summary ---
Author Organization [facility] Address [facility] [place] [address] Care Team Providers Care Machinist Mate Name Role Phone González Luis DO Primary Care Provider [phone] Reason for Visit * Reason Onset Date Comments Appointment 06/18/2021 Encounter Details Date Type Department Care Team (Late st Contact Info) Description 06/18/2021 [place] [address] Laura Chavez MD [facility] [place] [address] Appointment Social History Tobacco Use Types Packs/Day [...] encounter Miscellaneous Notes * Telephone Encounter - Oksana Ness - 06/18/2021 11:50 AM EDT Patient scheduled for 11/04 and added to the wait list please call and reschedule if patient needs to be seen sooner. * Telephone Encounter - Yoko Townsend - 06/18/2021 9:38 AM EDT Scheduling Instructions Provider: Scott Visit Type (paste GUDELIA Instructions or manually enter): FUV Appt Note: Splenic artery aneurysm Additional Info Needed: * Telephone Encounter - Yoko Townsend - 06/18/2021 9:37 AM EDT ----- Message from Shaista Nina RN sent at 06/17/2021 5:21 PM EDT ----- Regarding: FW: Appointment ----- Message ----- From: Laura Chavez MD Sent: 06/17/2021 5:19 PM EDT To: Shaista Nina RN Subject: FW: Appointment Pondering? In clinic FUV - next available after 6 months (so 08/04) ----- Message ----- From: Shaista Nina RN Sent: 06/17/2021 5:11 PM EDT To: Laura Chavez MD, # Subject: FW: Appointment Last visit 02/02 , V you were pondering again. What needs to be scheduled? Tx,c ----- Message ----- From: Yessica Penny RN Sent: 06/17/2021 9:20 AM EDT To: Shaista Nina RN Subject: FW: Appointment ----- Message ----- From: Juan J Hardin Sent: 06/17/2021 8:28 AM EDT To: [facility] Neurology Nurse Subject: Appointment I should have an appointment scheduled. Haven't heard yet. Darron Hardin documented in this encounter Plan of Treatment Upcoming Encounters Date Type Department Care Team (Late st Contact Info) Description 06/13/2024 3:00 PM EDT [place] [address] Laura Chavez MD [facility] [place] [address] 12/12/2024 3:30 PM EST [place] [address] Laura Chavez MD [facility] [place] [address] documented as of this encounter Visit Diagnoses Not on filedocumented in this encounter Care Teams Machinist Mate Relationship Specialty Start Date End Date González Luis DO [address] [place] [address] PCP - General Family Medicine 04/23/17 documented as of this encounter
--- OUTSIDE RECORDS SUMMARY | 2024-05-20 02:48 | XMS_ITS | Clinical Summary ---
Author Organization [facility] Address [facility] [place] [address] Care Team Providers Care Top Bottom Attaching Machine Operator Name Role Phone González Luis DO Primary Care Provider Allergies Active Allergy Reactions Criticality Noted Date Comments Facial Mask 06/30/2017 Pollen Extracts 06/30/2017 Medications Medication Sig Dispensed Refills Start Date End Date Status levothyroxine (SYNTHROID) 50 mcg Tablet Take 50 mcg by mouth daily. Active tamsulosin (FLOMAX) 0.4 mg Capsule, Sust. Release 24 hr Take 2 capsules by mouth daily. 01/27/2017 Active meclizine (ANTIVERT) 25 mg Tablet Take 25 mg by mouth 3 times daily as needed. Active pyridostigmine (MESTINON) 60 mg TabletIndications:F atigue, unspecified type Take 0.5 tablets by mouth 3 times daily. 30 tablet 1 07/05/2019 Active Additional Information Patient taking differently: 60 mgOralDAILY, Takes at 6 am, 10 am, 2 pm, 6 pm, 9 pm; takes 1 or 2 tablets based on his symptoms at the time, Indications: 7 60mg tabs per day, Reported on 05/17/2021 rivaroxaban (Xarelto) 20 mg Tablet Take 20 mg by mouth daily. Active metoprolol succinate XL (Toprol-XL) 25 mg Tablet Sustained Release 24 hr Take 25 mg by mouth daily. 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 08/31/2017 Immunizations Name Administration Dates Next Due Moderna Covid-19 Monovalent 12Yr+ (Study Specialist 100mcg) 08/26/2021,12/22/2020,11/24/2020 Social History Tobacco Use Types Packs/Day Years Used Date Smoking Tobacco: Former Cigarettes Q uit: 06/30/1967 Smokeless Tobacco: Never Alcohol Use Standard Drinks/Week Comments No 0 (1 standard drink = 0.6 oz pur e alcohol) Sex and Gender Information Value Date Recorded Sex Assigned at Not on file Gender Identity Not on file Sexual Orientation Choose not to disclose 2022 11:32 AM EDT Last Filed Vital Signs Vital Sign Reading Time Taken Comments Blood Pressure 132/93 05/04/2023 2:38 PM EDT Pulse 60 05/04/2023 2:38 PM EDT Temperature 37.3 ??C (99.1 ??F) 04/12/2021 10:22 AM E DT Respiratory Rate 20 04/12/2021 8:38 AM EDT Oxygen Saturation 93% 04/12/2021 8:40 AM EDT Inhaled Oxygen Concentration - - Weight 87.8 kg (193 lb 9.6 oz) 05/04/2023 2:38 P M EDT Height 181 cm (5' 11.25) 05/04/2023 2:38 PM EDT Body Mass Index 26.81 05/04/2023 2:38 PM EDT Plan of Treatment Upcoming Encounters Date Type Department Care Team (Late st Contact Info) Description 06/13/2024 3:00 PM EDT Office [place] [address] Laura Chavez MD [facility] [place] [address] 12/12/2024 3:30 PM EST Office [place] [address] Laura Chavez MD [facility] [place] [address] Health Maintenance Due Date Last Done Comments Hepatitis C Screening 1963 Tdap adult 1964 Tetanus vaccine 1964 Zoster vaccine (1 of 2) 1995 Advance Directive 2000 Pneumoccocal Vaccine: 65+ (1 of 1 - PCV) 2010 Covid-19 Vaccine (4 - 2022-2 4 season) 2023 08/26/2021, 12/22/2020, 11/24/2020 Influenza (Flu) vaccine (1 o f 1 - Influenza standard series) 06/19/2024 AAA Screen Discontinued 06/19/2022, 04/20, 03/29/2021 Medical Devices Implanted Type Area Filler Shredding Machine Loader Device Identifier Shelf Expiration Date Model / Serial / Lot Coil Embo Interlock 35 Fibered Idc [id number] [employer] ([id number]) (Autoreq)-03/20 Implanted:Qty : 1 on 04/11/2021 by Dmitry Chaudhary MD IMPLANTS Arterial [employer] 01/29/2024 [id number] / / [id number] Description:splenic artery Coil Embo Interlock 35 Fibered Idc [id number] [employer] ([id number]) ([employer])-03/20 Implanted:Qty : 1 on 04/11/2021 by Dmitry Chaudhary MD IMPLANTS Arterial [employer] 01/08/2024 [id number] / / [id number] Description:splenic artery Coil Embo Interlock 35 Fibered Idc [id number] [employer] ([id number]) ([employer])-03/20 Implanted:Qty : 1 on 04/11/2021 by Dmitry Chaudhary MD IMPLANTS Arterial [employer] 01/22/2024 [id number] / / [id number] Description:splenic artery Coil Embo Interlock 35 Fibered Idc [id number] [employer] ([id number])-03/20 Implanted:Qty : 1 on 04/11/2021 by Dmitry Chaudhary MD IMPLANTS Arterial [employer] 06/08/2022 [id number] / / [id number] Description:splenic artery Coil Embo Interlock 35 Fibered Idc [id number] [employer] ([id number])-03/20 Implanted:Qty : 1 on 04/11/2021 by Dmitry Chaudhary MD IMPLANTS Arterial [employer] 12/11/2023 [id number] / / [id number] Description:splenic artery Coil Embo Interlock 18 Fibered Idc [id number] [employer] ([id number])-03/20 Implanted:Qty : 1 on 04/11/2021 by Dmitry Chaudhary MD IMPLANTS Arterial [employer] 02/12/2023 [id number] / / [id number] Description:splenic artery Coil Embo Interlock 18 Fibered Idc [id number] [employer] ([id number])-03/20 Implanted:Qty : 1 on 04/11/2021 by Dmitry Chaudhary MD IMPLANTS Arterial [employer] 04/18/2022 [id number] / / [id number] Description:splenic artery Coil Embo Interlock 18 Fibered Idc [id number] [employer] ([id number]) ([employer])-03/20 Implanted:Qty : 1 on 04/11/2021 by Dmitry Chaudhary MD IMPLANTS Arterial [employer] 07/17/2022 [id number] / / [id number] Description:splenic artery Coil Embo Interlock 18 Fibered Idc [id number] [employer] ([id number]) ([employer])-03/20 Implanted:Qty : 1 on 04/11/2021 by Dmitry Chaudhary MD IMPLANTS Arterial [employer] 04/04/2022 [id number] / / [id number] Description:splenic artery Coil Embo Interlock 18 Fibered Idc [id number] [employer] ([id number]) ([employer])-03/20 Implanted:Qty : 1 on 04/11/2021 by Dmitry Chaudhary MD IMPLANTS Arterial [employer] [id number] / / [id number] Description:splenic artery Coil Embo Interlock 35 Fibered Idc [id number] [employer] ([id number]) ([employer])-03/20 Implanted:Qty : 1 on 04/11/2021 by Dmitry Chaudhary MD IMPLANTS Arterial [employer] [id number] / / [id number] Description:splenic Coil Embo Interlock 35 Fibered Idc [id number] [employer] ([id number]) ([employer])-03/20 Implanted:Qty : 1 on 04/11/2021 by Dmitry Chaudhary MD IMPLANTS Arterial [employer] 01/29/2024 [id number] / / [id number] Description:splenic artery Coil Embo Interlock 35 Fibered Idc [id number] [employer] ([id number])-03/20 Implanted:Qty : 1 on 04/11/2021 by Dmitry Chaudhary MD IMPLANTS Arterial [employer] 01/31/2023 [id number] / / [id number] Description:splenic artery Procedures Procedure Name Priority Date/Time Associated Diagnosis Comments CT ANGIOGRAM ABDOMEN AND PELVIS W CONTRAST Routine 06/19/2022 12:56 PM EDT Splenic artery aneurysm from Last 3 Months or Most Recently Relevant to Health Maintenance Results * CT Angiogram Abdomen & Pelvis [...] who have questions please contact the health critical care rn that requested your imaging first. ? Narrative 06/19/2022 3:07 PM EDT EXAMINATION: CT [...] reviewed and 3-D images were generated on anindependent workstation. COMPARISON: CT abdomen pelvis on 05/17/2021 [...] patients who have questions please contactthe health critical care rn that requested your imaging first. Dmitry Chaudhary MD IMG CT ORDERABLES from Last 3 Months or Most Recently Relevant to Health Maintenance Advance Directives * Attempt Cardiopulmonary Resuscitation - Inpatient (Latest Code Status on File) Date Activated Date Inactivated Comments 04/11/2021 3:29 PM 04/12/2021 12:57 PM Question Answer Comments Code Status decision made by: Patient * Attempt Cardiopulmonary Resuscitation - Inpatient Date Activated Date Inactivated Comments 04/11/2021 12:20 PM 04/11/2021 3:29 PM Question Answer Comments Code Status decision made by: Patient Care Teams Top Bottom Attaching Machine Operator Relationship Specialty Start Date End Date González Luis DO [address] [place] [address] PCP - General Family Medicine 04/23/17
--- OUTSIDE RECORDS SUMMARY | 2024-05-20 02:48 | XMS_ITS | Encounter Summary ---
Author Organization [facility] [place] [address] Care Team Providers Care Machine Sorter Name Role Phone González Luis DO Primary Care Provider Reason for Referral * Diagnostic Test (Routine) - Closed Specialty Diagnoses / Procedures Referred By Contac t Referred To Contact Radiology Diagnoses Splenic artery aneurysm Procedures CT Angiogram Abdomen & Pelvis w Contrast (Generic) Dmitry Chaudhary MD [facility] [place] [address] [facility] [place] [address] Referral ID Status Reason Start Date Expiration Date V isits Requested Visits Authorized [id number] Closed Specialty Service Requested 11/29/2021 05/28/2023 1 1 Reason for Visit * Diagnostic Test (Routine) - Closed Specialty Diagnoses / Procedures Referred By Contac t Referred To Contact Radiology Diagnoses Splenic artery aneurysm Procedures CT Angiogram Abdomen & Pelvis w Contrast (Generic) Dmitry Chaudhary MD [facility] [place] [address] [facility] [place] [address] Referral ID Status Reason Start Date Expiration Date V isits Requested Visits Authorized [id number] Closed Specialty Service Requested 11/29/2021 05/28/2023 1 1 Encounter Details Date Type Department Care Team (Latest Contact Info) Description 06/19/2022 12:27 PM EDT - 06/19/2022 11:59 PM EDT Hospital Encounter [facility] [place] [address] Dmitry hCaudhary MD [facility] [place] [address] Splenic artery aneurysm Discharge Disposition: Home Social History Tobacco Use [...] Sig Dispensed Refills Start Date End Date rivaroxaban (Xarelto) 20 mg Tablet Take 20 mg by mouth daily. metoprolol succinate XL (Toprol-XL) 25 mg Tablet Sustained Release 24 hr Take 25 mg by mouth daily. pyridostigmine (MESTINON) 60 mg TabletIndications:Fatig ue, unspecified [...] 3:00 PM EDT [place] [address] Laura Chavez MD [facility] [place] [address] 12/12/2024 3:30 PM EST [place] [address] Laura Chavez MD [facility] [place] [address] documented as of this encounter Procedures Procedure Name Priority Date/Time Associated Diagnosis Comments CT ANGIOGRAM ABDOMEN AND PELVIS W CONTRAST Routine 06/19/2022 12:56 PM EDT Splenic artery aneurysm documented in this encounter Results * CT Angiogram Abdomen [...] have questions please contact the health manager intensive care unit that requested your imaging first. ? Narrative [...] who have questions please contactthe health manager intensive care unit that requested your imaging first. Dmitry Chaudhary MD IMG CT ORDERABLES documented in this encounter Visit Diagnoses Diagnosis 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 documented in this encounter Administered Medications Inactive Administered Medications - up to 3 most recent administrations Medication Order MAR Action Action Date Dose Rate Site iohexoL (Omnipaque) (350 mg/mL) solution 0-200 mL 0-200 mL, Intravenous, ONCE PRN, 1 dose, Starting on Jessika 06/19/22 at 1255, Until Jessika 06/19/22 at 1255, Per Protocol, Warning Vesicant/Irritant Medication , Radiology Contrast, Routine Given 06/19/2022 12:55 PM EDT 99 mLs documented in this encounter Care Teams Machine Sorter Relationship Specialty Start Date End Date González Luis DO [address] [place] [address] PCP - General Family Medicine 04/23/17 documented as of this encounter
--- OUTSIDE RECORDS SUMMARY | 2024-05-20 02:49 | XMS_ITS | Encounter Summary ---
[place] [address] Care Team Providers Care Marketing Director Name Role Phone TobyGonzález DO Primary Care Provider Encounter Details Date Type Department Care Team (Late st Contact Info) Description 04/01/2021 Telephone [place] [phone] Gudelia George Social History Tobacco Use Types Packs/Day Years [...] encounter Miscellaneous Notes * Telephone Encounter - Gudelia George - 04/01/2021 9:02 AM EDT I spoke with Mrs. Hardin and Juan J was driving, we have scheduled IR procedure with Dr. Chaudhary to be on 04/11/21. Letter sent. documented in this encounter Plan of Treatment Upcoming Encounters Date Type Department Care Team (Late st Contact Info) Description 06/13/2024 3:00 PM EDT Office Visit [place] [phone] Laura Chavez MD [facility] [place] [address] 12/12/2024 3:30 PM EST Office [place] [phone] Laura Chavez MD [facility] [place] [address] documented as of this encounter Visit Diagnoses Not on filedocumented in this encounter Care Teams Marketing Director Relationship Specialty Start Date End Date González Luis DO [address] [place] [address] PCP - General Family Medicine 04/23/17 documented as of this encounter
--- OUTSIDE RECORDS SUMMARY | 2024-05-20 02:49 | XMS_ITS | Encounter Summary ---
Author Organization [facility] [address] Care Team Providers Care Surgical Asst Name Role Phone González Luis DO Primary Care Provider [phone] Reason for Referral * Diagnostic Test (Routine) - Closed Specialty Diagnoses / Procedures Referred By Radha macdonald Referred To Contact Radiology Diagnoses Splenic artery aneurysm Procedures VS Arteriogram Mesenteric Vascular Surgery Dmitry Chaudhary MD [facility] [place] [address] [place] [address] Referral ID Status Reason Start Date Expiration Date V isits Requested Visits Authorized [id number] Closed Specialty Service Requested 04/01/2021 10/01/2022 1 1 Reason for Visit * Auth/Cert Specialty Diagnoses / Procedures Referred By Radha macdonald Referred To Contact Diagnoses Splenic artery aneurysm SPLENIC ARTERY ANEURYSM SPLENIC ARTERY ANEURYSM POST OP [place] Procedures ARTERIOGRAMS Referral ID Status Reason Start Date Expiration Date Visits Re quested Visits Authorized [id number] 1 1 Encounter Details Date Type Department Care Team (Latest Contact Info) Description 04/11/2021 11:40 AM EDT - 04/11/2021 3:39 PM EDT Hospital En[place] [address] Dmitry Chaudhary MD [facility] [place] [address] Splenic artery aneurysm Discharge Disposition: Home Social [...] Sign Reading Time Taken Comments Blood Pressure 159/79 04/11/2021 3:30 PM EDT Pulse 62 04/11/2021 3:05 PM EDT Temperature 36.7 ??C (98 ??F) 04/11/2021 3:15 PM EDT Respiratory Rate 18 04/11/2021 3:30 PM EDT Oxygen Saturation 95% 04/11/2021 3:30 PM EDT Inhaled Oxygen Concentration - - Weight 88.8 kg (195 lb 12.3 oz) 021 11:52 AM EDT Height - - Body Mass Index 27.3 03/29/2021 8:58 AM EDT documented in this encounter Discharge Instructions * Discharge Instructions* Lashell Farfan RN - 04/11/2021 1:43 PM EDT [facility] Interventional Radiology Post Angiography Instructions Procedure: Splenic Artery Aneurysm Embolization Puncture Site: Right groin Date: 04/11/21 Physician: Dr. Chaudhary, Dr. Mandujano 1. At home we advise you to rest quietly in bed or on the couch with your hip straight until the next morning. Until the next morning you may get up only to go to the bathroom. 2. Resume your previous diet. Drink 6-8 ounces of fluid per hour for the next 8 hours. Avoid alcoholic or caffeinated beverages for 24 hours. 3. Avoid strenuous activity for the next 48 hours, particularly in the next 24 hours. Stair climbing should be kept to a minimum. Do not lift objects heavier than 10-15 pounds for the next 48 hours Avoid straining for bowel movements as you can pop open the clot that has formed on the artery. 4. If you develop bulging under the skin or bleeding at the puncture site, put direct pressure on the puncture site for 15 minutes and call your doctor. If the bleeding persists, reapply pressure, and go to your local Emergency Department. 5. If you notice a sudden change in the feeling (numbness, tingling and/or pain) of your leg on theside of the puncture call your doctor. 6. You may develop a bruise at the puncture site. This should go away within a week to 10 days. If a bulge develops after the first three days, call your doctor or the Radiology/Vascular Department here. Report signs of infection (redness, swelling, discharge, soreness, or fever) to your doctor. 7. Leave the bandage on for 24-48 hours. You may shower the following day after the procedure. You should NOT swim or tub bathe for [address] for 24 hours after the procedure. Do not sign any important documents or smoke unattended for 24 hours. You may return to work with the above restrictions on . 9. If you have any questions or concerns, please call Interventional Radiology Department at until 6pm. After 6pm, or on weekends or hoildays, call and ask for the vice president consulting services radon inspector. OR Vascular Department at until 4:45pm. After 4:45pm call and ask for the Vascular resident radon inspector. 10. If you are a diabetic and take Metformin or Janumet, Do not take it for 2 days after the procedure. XX You have received medication during your procedure to help lesson anxiety and keep you comfortable and which affects judgement and reaction time. We recommend that you do not drive, operate equipment, sign any important documents, or smoke unattended for 24 hours following your procedure. Because of the sedation please be careful on stairs, as you may be unsteady on your feet. You may resume your regular diet as tolerated. IV site -- slight redness, or tenderness is normal, you can use a warm compress. If tenderness and redness increases or foul drainage occurs, please contact your M. D. Revised 08/04/19 documented in this encounter Medications at Time of Discharge [...] spacer 08/21/2022 documented as of this encounter Progress Notes * Lashell Farfan RN - 04/11/2021 12:51 PM EDT [facility]GIO NURSING DATABASE Name: VALERIANO HARDIN Date of : 1945 AGE: 75 y.o. [address]: [address] [place] [phone] (home) Mobile: Telephone Information: Referring Provider: Dmitry Chaudhary REASON FOR VISIT: Splenic Artery Aneurysm Embolization Order Questions Answers Where will study be performed? [facility] Radiology [120] Laterality Bilateral Access Site? 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 creatinine prior Is the patient on anticoagulant / antiplatelet therapy ? Aspirin,Other Other meds: per Dr. Chaudhary, to continue aspirin *Vascular case sheet scanned in media on 04/01/21. Allergies Allergen Reactions ? ? Dust & Pollen Filter Mask [Facial Mask] ??? Pollen Extracts Pertinent PMH: Patient Active Problem List Diagnosis Code ??? Gait abnormality R26.9 ??? 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 Onto table supine. All monitors, O2, safety strap in place.Meds per protocol. Arterial Puncture Post Procedure Site: Right groin Closure device used: Mynx Time sheath removed: 1458 Time of hemostasis: 1510 Hematoma present? 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 The patient does not have any symptoms from this. He is otherwise in good health. He is a former smoker, however quit 53 years ago. Previous Vascular Surgery Interventions: None Pertinent Cardiovascular Medications: Antiplatelet Aspirin 325mg Beta Blockade Lipid agent Anticoagulation Other Anticoagulation: name: None indicated Antiplatelet: name(s): Aspirin 325mg, duration: supervisor intermediates Patient Active Problem List Diagnosis ??? Ujagdmp-Wwrhm-Glpxz disease ??? Gait abnormality There are no hospital problems to display for this patient. Active Non-Hospital Problems Diagnosis ??? Hwbjggg-Xtljy-Awvxf disease ??? Gait abnormality Review of Systems: A full review encompassing at least 10 organ systems including general, neuro, pulm, cardiac, GI, , MSK, Endo, and Psych was negative other than listed in the HPI. Past Medical History: No past medical history on file. Past Surgical History: No past surgical history on file. Functional Status: Lives at home, able to complete activities of daily living. Social Hx: Social History Socioeconomic History ??? Marital status: Spouse name: Not on file ??? Number of children: Not on file ??? Years of education: Not on file ??? Highest education level: Not on file Occupational History ??? Not on file Tobacco Use ??? Smoking status: Former Smoker Types: Cigarettes Quit date: 06/30/1967 Years since quittin.8 ??? Smokeless tobacco: Never Used Vaping Use ??? Vaping Use: Never used Substance and Sexual Activity ??? Alcohol use: No ??? Drug use: No ??? Sexual activity: Not on file Comment: deferred Other Topics Concern ??? Not on file Social History Narrative ??? Not on file Social Determinants of Health Financial Resource Strain: ??? Difficulty of Paying Living Expenses: Food Insecurity: ??? Worried About Running Out of Food in the Last Year: ??? Ran Out of Food in the Last Year: Transportation Needs: ??? Lack of Transportation (Medical): ??? Lack of Transportation (Non-Medical): Physical Activity: ??? Days of Exercise per Week: ??? Minutes of Exercise per Session: Family Hx: Negative for Thrombosis, Bleeding Disorders, No family history on file. Medications: Current Outpatient Medications on File Prior to Encounter Medication Sig Dispense Refill ??? cetirizine (ZyrTEC) 10 mg Tablet Take 10 mg by mouth daily. ??? pyridostigmine (MESTINON) 60 mg Tablet Take 0.5 tablets by mouth 3 times daily. (Patient takingdifferently: Take 60 mg by mouth daily. Indications: 7 60mg tabs per day) 30 tablet 1 ??? levothyroxine (SYNTHROID) 50 mcg Tablet Take 50 mcg by mouth daily. ??? tamsulosin (FLOMAX) 0.4 mg Capsule, Sust. Release 24 hr Take 1 capsule by mouth daily. ??? fluticasone-salmeterol (ADVAIR) 250-50 mcg/dose Disk with Device Inhale 1 puff into the lungs 2times daily as needed. ??? aspirin 325 mg Tablet Take 325 mg by mouth daily. ??? meclizine (ANTIVERT) 25 mg Tablet Take 25 mg by mouth 3 times daily as needed. ??? multivitamin (THERAGRAN) Tablet Take 1 tablet by mouth daily. ??? albuterol 90 mcg/actuation HFA Aerosol Inhaler Inhale 2 puffs into the lungs every 4 hours as needed for Wheezing. Use with spacer Current Facility-Administered Medications on File Prior to Encounter Medication Dose Route Frequency Provider Last Rate Last Admin ??? sodium chloride 0.9 % (flush) flush 5 mL 5 mL Intravenous BID Shira Mandujano MD ??? sodium chloride 0.9 % (flush) flush 5-20 mL 5-20 mL Intravenous Q1 Min PRN Shira Mandujano MD ??? lidocaine (Xylocaine) 1% (10 mg/mL) injection 3 mg 0.3 mL Subcutaneous Once PRN Shira Mandujano MD Allergies: Allergies Allergen Reactions ? ? Dust & Pollen Filter Mask [Facial Mask] ??? Pollen Extracts Physical Exam: Vital Signs: Temp: -- Heart Rate: -- Resp: -- BP: -- SpO2: -- Heart Rate from SpO2: -- BMI: Weight: 88.8 kg (195 lb 12.3 oz) General: alert, cooperative, NAD, resting comfortably HEENT: normocephalic, atraumatic CVS: Regular rate and rhythm, no murmurs rubs or gallops Pulm: Clear bilaterally Abd: soft, non tender, non distended, no pulsatile masses Ext: RLE: No edema. Skin warm and pink. No tissue loss. Brisk capillary refill. Palpable femoral, DP/PT LLE: No edema. Skin warm and pink. No tissue loss. Brisk capillary refill. Palpable femoral, DP/PT Neuro: Grossly nonfocal, moving all extremities. Labs: Last wbc, hgb, hct plt No results for input(s): WBC, HGB, HCT in the last 72 hours. Invalid input(s): PLT Last 3 Lytes Recent Labs 04/11/21 1133 02/08/21 1547 CREATININE 0.90 0.87 Last 3 Coags No results for input(s): PT, INR, PTT in the last 168 hours. Vascular Imaging: Duplex, Visceral Arteries 03/29/21: Findings: ?? Unilateral ? Waveform ? PSV cm/s ??EDV cm/s ?? Jessica Visceral Aorta ? 86 ? 0 ?? Celiac Artery, Proximal ??Loup-Biphasic ? 136 ?48 ?? Celiac Artery, Mid ? Loup-Biphasic ? 133 ?45 ?? Celiac Artery, Distal ?Loup-Biphasic ? 109 ?35 ?? Sup Mes Artery Proximal ??Triphasic ? 192 ?17 ?? Sup Mes Artery Middle ?Triphasic ?88 ? 0 ?? Sup Mes Artery Distal ?Triphasic ? 114 ? 0 ?? Hepatic Artery ? Loup-Biphasic ?97 ?16 ?? Splenic Artery ? Monophasic ?100 ?22 ?? Inf Mes Artery ? Bi-Triphasic ?173 ? 0 ? Interpretation: ?? Patent splenic artery with a aneurysm in the distal segment of the artery measuring approximately 3.5 x 3.4 cm in diameter. Mural thrombus is noted within the aneurysm sac. The very distal splenic artery at the hilum and the spleen was not visualized due to overlying bowel gas; cannot exclude a larger aneurysm diameter. ?? Patent celiac, superior mesenteric and inferior mesenteric arteries with no evidence of significant stenosis. ?? Patent common hepatic artery with antegrade Doppler waveforms. 02/08/21 CT Chest: FINDINGS: Pulmonary parenchyma: Curvilinear scarring in the superior segment of the right lower lobe and anterior basal left lower lobe as well as dependent atelectasis versus subpleural scarring dorsally in both lower lobes. Minimal centrilobular emphysematous changes by the lung apices. Airways: No endobronchial opacities. Pleura: No pleural effusion. Lymph nodes:No thoracic lymphadenopathy. Heart, pericardium, and great vessels: Mild coronary and descending thoracic aortic atherosclerotic calcification. Mild aortic valve calcification. Normal contour and caliber of the central pulmonary arteries and thoracic aorta. Normal cardiac chamber sizes. No pericardial effusion. Other mediastinal structures: No mediastinal mass is seen. Lower neck: No significant findings. Upper abdomen: Partially thrombosed 4.1 x 3.7 cm splenic artery aneurysm, see series 3 image 115. Body wall soft tissues: No significant findings. Skeletal structures: Degenerative changes throughout the spine. ?? IMPRESSION 1. No mediastinal mass seen. 2. UNEXPECTED FINDING. 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 Assessment and Plan: Valeriano Hardin is a 75 year old male who was incidentally found to have a 4.1cm splenic artery aneurysm on CT scan. The patient presents today for mesenteric angiogram with intervention on the splenic artery aneurysm. The risks and benefits of the procedure have been explained to the patient and he has elected to proceed. ASA II Mal II SCr Lab Results Component Value Date CREATININE 0.90 04/11/2021 Shira Mandujano MD 04/11/2021 12:22 PM documented in this encounter Plan of Treatment Upcoming Encounters Date Type Department Care Team (Late st Contact Info) Description 06/13/2024 3:00 PM EDT Office [place] [address] Laura Chavez MD [facility] [place] [address] 12/12/2024 3:30 PM EST Office [place] [address] Laura Chavez MD [facility] [place] [address] documented as of this encounter Procedures Procedure Name Priority Date/Time Associated Diagnosis Comments VS ARTERIOGRAM MESENTERIC VASCULAR SURGERY Routine 04/11/2021 3:18 PM EDT Splenic artery aneurysm documented in this encounter Results * VS Arteriogram Mesenteric Vascular Surgery (04/11/2021 3:18 PM EDT) Anatomical Region Laterality Modality X-Ray Angiograph y Narrative 04/23/2021 1:34 PM EDT Attestation signed by Dmitry Chaudhary MD at 04/20/2021 ??5:36 PM Attending Attestation I was the attending physician supervising the resident/fellow in the above care and I was present with the resident/fellow for the entire procedure. I was present during the intraservice time as documented by the sedation RN. Vascular Surgery Procedure Note Pre-procedure Dx: Splenic artery aneurysm Post-procedure Dx: Same Procedure: 1. Right femoral arterial access 2. Selective catheterization of celiac artery, splenic artery 3. Splenic artery angiogram 4. Coil embolization of splenic artery aneurysm and splenic artery ?Interlock coils: [id number], [id number], [id number], [id number], [id number], [id number], ??[id number], [id number], [id number], [id number], [id number], [id number], [id number], ? [id number] 5. Completion angiogram 6. Mynx closure Surgeons: Dmitry Chaudhary MD - Attending surgeon Shira Mandujano MD - Vascular resident Anesthesia: Conscious sedation, local 8 cc 1% lidocaine Medications: Fentanyl: 225 mcg ?? 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 ??The patient does not have any symptoms from this. ??He is otherwise in good health. ??He is a former smoker, however quit 53 years ago. ?? Findings: - Sheath access in right groin. - Aortogram demonstrated: Visceral aorta patent with no evidence of stenosis or aneurysm. ??Patent celiac and SMA arteries. 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 ?? - Intervention: Coil embolization of splenic artery (coils listed above) - Completion angiogram demonstrated: Multiple coils within splenic artery aneurysm and inflow vessel. ??Continued flow out of the aneurysm, however, diminished. ?? - Closure device: Mynx Technical Procedure: ?The patient was correctly identified in the pre-procedure holding area. ??After a discussion of the risks and benefits, operative consent was obtained. ??The patient was brought to the angio suite and placed supine upon the angio table. The patient was prepped and draped in the usual sterile fashion. A time-out was performed by the attending surgeon. Retrograde percutaneous access was obtained in the right common femoral artery via micropuncture technique under ultrasound and flouroscopic guidance after infiltration with local anesthetic. This was then up-sized to a 10 cm 5F sheath over a J-wire. The wire was advanced into the infra-renal aorta. A 5F omni-flush catheter was advanced into the infrarenal aorta over the wire. Diagnostic aortography was performed with the above findings. ?The sheath was exchanged for a 6F 10cm sheath. ??The wire and a 6F Tinajero Catheter were used to catheterize the splenic artery. An ??NTA catheter was inserted through the Tinajero catheter and splenic artery angiography was performed as described above. ??A glide wire was advanced with the catheter into the splenic artery. ?The catheter was advanced into the aneurysm, the wire was removed, and multiple coils were placed as listed above. ??For 018 coils, a renegade catheter within the existing catheter was used for delivery of the coils. ?? Completion angiography was performed with the results as documented above. ?The sheath was removed with the assistance of a Mynx closure device and manual pressure was held over the puncture site for 12 minutes. Hemostasis was satisfactory. The puncture site was dressed with a dry gauze and tegaderm. ?Dr. Chaudhary, the attending surgeon, was scrubbed and present for the entire procedure. ??Due to the painful nature of the procedure, split doses of fentanyl and Versed were administered by the IR nurse during continuous monitoring of pulse, blood pressure and oxygen saturation. Closure method: Mynx Complications: None apparent Disposition: To recovery, flat for 2 hours Thank you for letting us participate in the care of this patient. ??If you are a health care provider and have any questions regarding this report, please contact the number below. ??For patients who have questions please contact the health lawn care technician that requested your imaging first. ? Electronically signed by: Dmitry Chaudhary MD, [facility] ([phone]), at 04/23/2021 1:34 PM Procedure Note Dmitry Chaudhary MD - 04/23/2021 Attestation signed by Dmitry Chaudhary MD at 04/20/2021 5:36 PM Attending Attestation I was the attending physician supervising the resident/fellow in the abovecare and I was present with the resident/fellow for the entire procedure. I was present during the intraservice time as documented by the sedationRN. Vascular Surgery Procedure Note Pre-procedure Dx: Splenic artery aneurysm Post-procedure Dx: Same Procedure: 1. Right femoral arterial access 2. Selective catheterization of celiac artery, splenic artery 3. Splenic artery angiogram 4. Coil embolization of splenic artery aneurysm and splenic artery Interlock coils: [id number], 3qrm52ho, [id number], 97ugs27tw, 36owp54wy, [id number], 99hvd30rq, 10uux76yl, 20ldj10ue, [id number],74bpj00mb, 45hue29el, 7qwg81dx, [id number] 5. Completion angiogram 6. 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 The patient does nothave any symptoms from this. He is otherwise in good health. He is a formersmoker, however quit 53 years ago. Findings: - Sheath access in right groin. - Aortogram demonstrated: Visceral aorta patent with no evidence ofstenosis or aneurysm. Patent celiac and SMA arteries. Saccular aneurysm noted in themid splenic artery - Angiogram demonstrated: Splenic aneurysm in the middle of the arterywith two outflow vessels. - Intervention: Coil embolization of splenic artery (coils listed above) - Completion angiogram demonstrated: Multiple coils within splenicartery aneurysm and inflow vessel. Continued flow out of the aneurysm,however, diminished. - Closure device: Mynx Technical Procedure: The patient was correctly identified in the pre-procedureholding area. After a discussion of the risks and benefits, operative consentwas obtained. The patient was brought to the angio suite and placed supineupon the angio table. The patient was prepped and draped in the usual sterilefashion. A time-out was performed by the attending surgeon. Retrograde percutaneousaccess was obtained in the right common femoral artery via micropuncturetechnique under ultrasound and flouroscopic guidance after infiltration with local anesthetic. This was then up-sized to a 10 cm 5F sheath over a J-wire. Thewire was advanced into the infra-renal aorta. A 5F omni-flush catheter wasadvanced into the infrarenal aorta over the wire. Diagnostic aortography wasperformed with the above findings. The sheath was exchanged for a 6F 10cm sheath. The wire and a6F Tinajero Catheter were used to catheterize the splenic artery. An NTAcatheter was inserted through the Tinajero catheter and splenic artery angiography wasperformed as described above. A glide wire was advanced with the catheter intothe splenic artery. The catheter was advanced into the aneurysm, the wirewas removed, and multiple coils were placed as listed above. For 018 coils,a renegade catheter within the existing catheter was used for delivery ofthe coils. Completion angiography was performed with the results asdocumented above. The sheath was removed with the assistance of a Mynx closuredevice and manual pressure was held over the puncture site for 12 minutes.Hemostasis was satisfactory. The puncture site was dressed with a dry gauze andtegaderm. Dr. Chaudhary, the attending surgeon, was scrubbed and presentfor the entire procedure. Due to the painful nature of the procedure, split dosesof fentanyl and Versed were administered by the IR nurse during continuous monitoring of pulse, blood pressure and oxygen saturation. Closure method: Mynx Complications: None apparent Disposition: To recovery, flat for 2 hours Thank you for letting us participate in the care of this patient. If youare a health care provider and have any questions regarding this report,please contact the number below. For patients who have questions please contactthe health lawn care technician that requested your imaging first. Electronically signed by: Dmitry Chaudhary MD, [facility]([phone]), at 04/23/2021 1:34 PM Dmitry Chaudhary MD [facility] [place] [facility] ORDER[facility] documented in this encounter Visit Diagnoses Diagnosis 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 documented in this encounter Administered Medications Inactive Administered Medications - up to 3 most recent administrations Medication Order MAR Action Action Date Dose Rate Site ceFAZolin (Ancef) 2 g in dextrose 5% 100 mL infusion 2 g, Intravenous, ONCE, 1 dose, On Jessika 04/11/21 at 1300, Administer over 30 Minutes, Redose every 3 hours if CrCl is greater than 20. Redose every 8 hours if CrCl is less than 20., Angio/IR (Day of Procedure), Indication for (Active or Suspected): Prophylaxis New Bag 04/11/2021 12:54 PM EDT 2 g 200 mL/hr fentaNYL (pf) (50 mcg/mL) multi-dose injection 25-50 mcg 25-50 mcg, Intravenous, EVERY 3 MIN PRN, Starting on Jessika 04/11/21 at 1234, Until Thu04/12/21 at 0236, Pain, per unit protocol, - Start dose 50 mcg (reduce dose to 25 mcg if history of sedation sensitivity). - Titration dose 25-50 mcg IV, (based on patient response) every 3 minutes PRN, to maintain procedural pain less than 2 per pain Scale. Maximum dose: 50 mcg/dose, 250 mcg/hour For use in Interventional Radiology (IR) only for procedural sedation with direct provider supervision and verbal order., Angio/IR (Intra-Procedure), Routine Given 04/11/2021 2:47 PM EDT 25 mcg Given 04/11/2021 2:32 PM EDT 25 mcg Given 04/11/2021 2:15 PM EDT 25 mcg hydrALAZINE (Apresoline) (20 mg/mL) injection 10-20 mg 10-20 mg, Intravenous, ONCE PRN, 1 dose, Starting on Jessika 04/11/21 at 1234, Until Jessika 04/11/21 at 1458, High Blood Pressure, May repeat within 20 minutes., Angio/IR (Intra-Procedure) Given 04/11/2021 2:58 PM EDT 10 mg iodixanoL (Visipaque) (320 mg/mL) injection solution 1-400 mL 1-400 mL, Intravenous, ONCE, 1 dose, On Jessika 04/11/21 at 1300, For intra-procedural use by proceduralist., Angio/IR (Intra-Procedure), Routine Given 04/11/2021 1:00 PM EDT 100 mLs lidocaine (Xylocaine) 1% (10 mg/mL) injection 10 mg 10 mg, Subcutaneous, ONCE, 1 dose, On Jessika 04/11/21 at 1300, For use in Interventional Radiology (IR) only for procedure with direct provider supervision and verbal order., Angio/IR (Intra-Procedure), Routine Given 04/11/2021 1:13 PM EDT 10 mg midazolam (pf) (Versed) (1 mg/mL) multi-dose injection 0.5-1 mg 0.5-1 mg, Intravenous, EVERY 3 MIN PRN, Starting on Jessika 04/11/21 at 1234, Until Thu04/12/21 at 0236, Sleep, - Start dose; 1 mg (Reduce dose to 0.5 mg if history of sedation sensitivity). - Titration dose: 0.5 mg - 1 mg (based on patient response) every 3 minutes PRN to obtain RASS score of -3. Maximum dose: 1 mg per dose, 5 mg/hour. For use in Interventional Radiology (IR) only for procedural sedation with direct provider supervision and verbal order., Angio/IR (Intra-Procedure), Routine Given 04/11/2021 2:15 PM EDT 0.5 mg Given 04/11/2021 2:06 PM EDT 0.5 mg Given 04/11/2021 1:38 PM EDT 0.5 mg documented in this encounter Care Teams Surgical Asst Relationship Specialty Start Date End Date González Luis DO [address] [place] [address] [address] [place] [address] PCP - General Family Medicine 04/23/17 documented as of this encounter
--- OUTSIDE RECORDS SUMMARY | 2024-05-20 02:49 | XMS_ITS | Encounter Summary ---
Author Organization [facility] [place] [address] Care Team Providers Care Laborer Name Role Phone González Luis DO Primary Care Provider Reason for Referral * Diagnostic Test (Routine) - Closed Specialty Diagnoses / Procedures Referred By Contac t Referred To Contact Radiology Diagnoses Generalized weakness Brisk deep tendon reflexes Procedures MRI Cervical Spine wo Contrast (Generic) Laura Chavez MD [facility] [place] [address] [place] [address] Referral ID Status Reason Start Date Expiration Date V isits Requested Visits Authorized [id number] Closed Specialty Service Requested 06/29/2018 06/29/2019 1 1 Reason for Visit * Diagnostic Test (Routine) - Closed Specialty Diagnoses / Procedures Referred By Contac t Referred To Contact Radiology Diagnoses Generalized weakness Brisk deep tendon reflexes Procedures MRI Cervical Spine wo Contrast (Generic) Laura Chavez MD [facility] [place] [address] [place] [address] Referral ID Status Reason Start Date Expiration Date V isits Requested Visits Authorized [id number] Closed Specialty Service Requested 06/29/2018 06/29/2019 1 1 Encounter Details Date Type Department Care Team (Latest Contact Info) Description 07/05/2018 8:02 AM EDT - 07/05/2018 11:59 PM EDT Hospital Encounter MRI at [facility] [place] [address] Laura Chavez MD [facility] [place] [address] Generalized weakness; Brisk deep tendon reflexes Discharge Disposition: Home Social History Tobacco Use [...] Sig Dispensed Refills Start Date End Date levothyroxine (SYNTHROID) 50 mcg Tablet Take 50 mcg by mouth daily. tamsulosin (FLOMAX) 0.4 mg Capsule, Sust. Release 24 hr Take 2 capsules by mouth daily. 01/27/2017 meclizine (ANTIVERT) 25 mg Tablet Take 25 mg by mouth 3 times daily as needed. dextroamphetamine-amphet amine (ADDERALL) 5 mg TabletIndications:Fatigu e, unspecified type,CMT (Rcxglce-Clfyf-Ifgim disease) Take 5 mg by mouth daily. 0 01/25/2018 12/28/2018 fluticasone-salmeterol (ADVAIR) 250-50 mcg/dose Disk with Device Inhale 1 puff into the lungs 2 times daily as needed. 08/21/2022 aspirin 325 mg Tablet Take 325 mg by mouth daily. 08/21/2022 tadalafil 20 mg Tablet Take 1 tablet by mouth as needed. 08/20/2020 multivitamin (THERAGRAN) Tablet Take 1 tablet by mouth daily. 08/21/2022 albuterol 90 mcg/actuation HFA Aerosol Inhaler Inhale 2 puffs into the lungs every 4 hours as needed for Wheezing. Use with spacer 08/21/2022 documented as of this encounter Plan of Treatment Upcoming Encounters Date Type Department Care Team (Late st Contact Info) Description 06/13/2024 3:00 PM EDT [place] [address] Laura Chavez MD [facility] [place] [address] 12/12/2024 3:30 PM EST [place] [address] Laura Chavez MD [facility] [place] [address] documented as of this encounter Procedures Procedure Name Priority Date/Time Associated Diagnosis Comments MRI CERVICAL SPINE WO CONTRAST Routine 07/05/2018 9:03 AM EDT Generalized weakness Brisk deep tendon reflexes documented in this encounter Results * MRI Cervical Spine wo Contrast (Generic) (07/05/2018 9:03 AM EDT) Anatomical Region Laterality Modality C-spine Magnetic Resonan ce Impressions 07/05/2018 10:12 AM EDT 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 No evidence for myelopathy. Narrative 07/05/2018 10:12 AM EDT EXAMINATION: MRI CERVICAL SPINE WO CONTRAST (GENERIC) CLINICAL HISTORY: Progressive weakness - brisk reflexes - worsening from 1 year ago TECHNIQUE: Cervical spine MRI without contrast. Myelopathy protocol. COMPARISON: Cervical spine MRI 07/08/2017. FINDINGS: Severe degrees of disc space narrowing at C4-C5, C5-C6 and C6-C7 are again identified. Reactive marrow edema at C4-C5 is similar. Several millimeters of C4-C5 and C5-C6 retrolisthesis unchanged. Minimal C6 on C7 anterolisthesis is also stable. Spinal canal narrowing is most significant at C6-C7 where there is a posterior disc osteophyte complex eccentric to the right that moderately indents the thecal sac, similar compared to prior. Mild spinal canal narrowing elsewhere. No evidence for myelopathy. Severe degrees of bilateral neural foraminal narrowing at multiple levels because of uncovertebral and facet arthropathy similar compared to prior. No aggressive marrow lesions. Procedure Note Severino Payne MD - 07/05/2018 EXAMINATION: MRI CERVICAL SPINE WO CONTRAST (GENERIC) CLINICAL HISTORY: Progressive weakness - brisk reflexes - worsening from 1year ago TECHNIQUE: Cervical spine MRI without contrast. Myelopathy protocol. COMPARISON: Cervical spine MRI 07/08/2017. FINDINGS: Severe degrees of disc space narrowing at C4-C5, C5-C6 and C6-C7are again identified. Reactive marrow edema at C4-C5 is similar. Severalmillimeters of C4-C5 and C5-C6 retrolisthesis unchanged. Minimal C6 on T3pyrpwzybfzqqija is also stable. Spinal canal narrowing is most significant at C6-C7 where there is aposterior disc osteophyte complex eccentric to the right that moderately indentsthe thecal sac, similar compared to prior. Mild spinal canal narrowingelsewhere. No evidence for myelopathy. Severe degrees of bilateral neural foraminalnarrowing at multiple levels because of uncovertebral and facet arthropathysimilar compared to prior. No aggressive marrow lesions. 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 No evidence for myelopathy. Laura Chavez MD IMG MRI ORDERABLES documented in this encounter Visit Diagnoses Diagnosis Generalized weakness Other malaise and fatigue Brisk deep tendon reflexes Abnormal reflex documented in this encounter Care Teams Laborer Relationship Specialty Start Date End Date González Luis DO [address] [place] [address] PCP - General Family Medicine 04/23/17 documented as of this encounter
--- OUTSIDE RECORDS SUMMARY | 2024-05-20 02:49 | XMS_ITS | Encounter Summary ---
Author Organization [facility] [place] [address] Care Team Providers Care Portfolio Mgr Name Role Phone González Luis DO Primary Care Provider [phone] Encounter Details Date Type Department Care Team (Late st Contact Info) Description 01/23/2021 External [place] [phone] Laura Chavez MD [facility] [place] [address] Social History Tobacco Use Types Packs/Day Years [...] 3:00 PM EDT [place] [phone] Laura Chavez MD [facility] [place] [address] 12/12/2024 3:30 PM EST [place] [address] Laura Chavez MD [facility] [place] [address] documented as of this encounter Procedures Procedure Name Priority Date/Time Associated Diagnosis Comments EMG SCAN Routine 01/21/2021 documented in this encounter Results * Scan Doc: EMG (01/21/2021) Laura Chavez MD MEDIA MGR SCAN EXT ORDR/RSLT documented in this encounter Visit Diagnoses Not on filedocumented in this encounter Care Teams Portfolio Mgr Relationship Specialty Start Date End Date González Luis DO [address] [place] [address] PCP - General Family Medicine 04/23/17 documented as of this encounter
--- OUTSIDE RECORDS SUMMARY | 2024-05-20 02:49 | XMS_ITS | Encounter Summary ---
Author Organization [facility] Address [facility] [place] [address] Care Team Providers Care Coal Conveyor Operator Name Role Phone González Luis DO Primary Care Provider [phone] Reason for Visit * Reason Comments Follow-up Encounter Details Date Type Department Care Team (Late st Contact Info) Description 08/20/2020 2:00 PM EST [place] [address] Laura Obrien MD [facility] [place] [address] Other fatigue Social History Tobacco Use Types Packs/Day Years [...] Sign Reading Time Taken Comments Blood Pressure 137/72 08/20/2020 1:46 PM EST Pulse 63 08/20/2020 1:46 PM EST Temperature - - Respiratory Rate - - Oxygen Saturation 98% 08/20/2020 1:46 PM EST Inhaled Oxygen Concentration - - Weight 85.7 kg (189 lb) 08/20/2020 1:46 PM EST Height 180.3 cm (5' 11) 08/20/2020 1:46 PM EST Body Mass Index 26.36 08/20/2020 1:46 PM EST documented in this encounter Progress Notes * Laura Obrien MD - 08/20/2020 2:00 PM EST Neurology Clinic Follow-up Note 08/20/20 5:10 PM Patient Name: Juan J Hardin : 1945 PCP: González Luis DO Patient ID: Juan J Hardin is a 75 y.o. male here for scheduled FU visit. His last visit was 1 year ago. 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 PMHx relevant to diagnosis: Patient Active Problem List Diagnosis ??? Wvuixay-Svvhy-Ouzwz disease ??? 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 His exam is really quite stable and if anything somewhat improved. We talked today about his experience of fatigue.In particular, he has some description of suggest a fatigability. This is mild in nature and certainly improved from when he first presented. While my sense in the past was this was related to an effect of combined generalized neuropathy and cervical spondylosis, his description today has some features suggestive of fatigability. His exam is reassuring and fairly stable certainly from the standpoint of a primary myelopathic process, but some very subtle fatigability with upward gaze left greater than right prompts me to consider the possibility of neuromuscular junction disorder. While I think this is really fairly unlikely, it is not unreasonable to obtain an acetylcholine receptor antibody titer. We also talked about the utility of low-dose Mestinon. I will obtain an acetylcholine receptor antibody titer today. I also given him a limited prescription so that he can trial low-dose Mestinon for. Of a week unless he experiences improvement. If his antibody titer is elevated additional studies should be performed. I have not made any other changes to his regimen. Interval History: Energy Exercise: If he worked out in the gym, he would feel gutted; now he is feeling less like that. After ~3/4 mile walking, he feels that he is laboring. This can occur fairly suddenly. Some days climbing to his house is very difficult - others not as much. He is able to lift more now than he did a year ago. Fatigue with 4 laps around his house. Sensory symptoms: increasing in his feet,losing intrinsics in his hands. Fall: Tripping over the dog. Balance: difficult to catch himself when he trips. Mestinon: 60 mg bid - very helpful, at least early on. Voice hoarse and dysphagia. He has days thatare bad that are unpredictable. / days he feels the Mestinon is helpful. 12/02 bad days and 12/02good day. Mestinon helps with the tried feeling. More lasting with a 3rd pill, but no increase in power. Melatonin has been helpful for sleep. Muscle cramping better. Dysphagia and hoarseness: worse on bad days.No drooping eyelids. No diplopia. Autonomic symptoms: some orthostasis - no syncope. Some early satiety. Diarrhea not constipation. Sweating less if anything. Relevant work up: MRI brain (08/2017): IMPRESSION No evidence recent infarct or other acute intracranial abnormality. ?? MRI thoracic spine (08/2017): IMPRESSION Thoracic spine degenerative changes. No central canal stenosis or cord signal abnormality MRI cervical/lumbar (06/2017): IMPRESSION Cervical spine: Changes of cervical spondylosis described in detail at individual levels the body the report. ?? Lumbar spine: Degenerative changes in lumbar spine greatest at the L4-5 level and described in detail at individual levels the body the report. MRI cervical, repeat (06/2018): IMPRESSION 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 No evidence for myelopathy. Serologic studies: Normal: SPEP/JUDE, MMA; B12 (430), HgbA1c (5.4), AchRAbx Comprehensive Neuropathy Panel genetic testing: Variants of Uncertain Significance identified in AARS (CMT2N), DCTN1 (HMN7B) and BRENNAN (AR). Abnormal: TSH elevated NCS/EMG IMPRESSION: Abnormal study. There is electrodiagnostic evidence of a length-dependent, sensorimotor axonal neuropathy. The denervation of L4, L5 and S1 innervated muscles is out of proportion to nerve conductionabnormalities and lumbar polyradiculopathy should be considered in the differential although it wasnot supported by denervation in more proximal L5 innervated muscles. Clinical and radiologic correlation is recommended. Medications: Medications 08/20/20 1349 Medication Sig Taking? melatonin 5 mg Tablet Take by mouth. Yes pyridostigmine (MESTINON) 60 mg Tablet Take 0.5 tablets by mouth 3 times daily. Yes levothyroxine (SYNTHROID) 50 mcg Tablet Take 50 mcg by mouth daily. Yes tamsulosin (FLOMAX) 0.4 mg Capsule, Sust. Release 24 hr Take 2 capsules by mouth daily. Yes aspirin 325 mg Tablet Take 325 mg by mouth daily. Yes meclizine (ANTIVERT) 25 mg Tablet Take 25 mg by mouth 3 times daily as needed. Yes multivitamin (THERAGRAN) Tablet Take 1 tablet by mouth daily. Yes albuterol 90 mcg/actuation HFA Aerosol Inhaler Inhale 2 puffs into the lungs every 4 hours as needed for Wheezing. Use with spacer Yes fluticasone-salmeterol (ADVAIR) 250-50 mcg/dose Disk with Device Inhale 1 puff into the lungs 2 times daily as needed. Allergy: Allergies Allergen Reactions ? ? Dust & Pollen Filter Mask [Facial Mask] ??? Pollen Extracts Physical Exam: BP 137/72 Pulse 63 Ht 180.3 cm (5' 11) Wt 85.7 kg (189 lb) SpO2 98% BMI 26.36 kg/m?? Appearance: The patient is a healthy-appearing male who appears of stated age and comes to his visit unaccompanied. he appears well developed and well nourished and requires no assistive devices for walking. Extremities: feet are high arched Mental status: The patient is alert and calm with MS intact to detailed questioning regarding his history. his speech and language is intact to normal conversation and examination commands; speech fluent. his attention and concentration allow for a full evaluation without evidence for deficit. Cranial nerves: Facial movements are normal. Extraocular movements are intact with full lateral versions. Patient denies diplopia with far lateral gaze but does note some blurring. Downward gaze is preserved. Sustained upward gaze for 45 to 60 seconds revealed some mild downward drift of the left eye associated with subtle ptosis. No Kyler twitch was elicited. Speech was clear without evidence ofdysphonia or hoarseness of voice. Repeated phonemes were brisk. Tongue was midline without fasciculations or atrophy. Count: 43 -50 Motor: NE NF SA EE EF WE WF FA FE Syd HG Right nt 5/5/5 5/5/5 5 5 5 5 5- 5- 4+ 5 Left nt 5/5/5 5/5/5 5 5 5 5 5- 5- 4+ 5 HF HE KE KF HAB HADD ADF APF I ToeF E Right 5/5-/5- nt 5 5 nt nt 5 5 5 4 NRt 5- Left 5/5-/5- nt 5 5 nt nt 5 5 5 4 NRt 5 There is no atrophy or fasciculations. There is no myoclonus, tremor, or drift. Sensory: Vibration: Ltoe 0 Rtoe 0 NRT LMM 0 RMM 0 Lknee 7 Rknee 7 LDIP2 8 RDIP2 8 LDIP5 nt RDIP5 nt Pin: Pin reduced bilaterally and symm up to knees bilateral - Asymmetry in pin sensation was demonstrated again over the L4 distribution on the right. Coordination: No cerebellar ataxia. Gait and station: Able to rise from a seated position without the use of his hands or arms. Stance is fairly normal although slightly wide-based with a subtly stooped posture. Gait is normal but slow. He is able to rise on heels and toes. Romberg is negative. Tendon reflexes: biceps triceps BR patellar AJ Plantars Right 1+ 1+ 1 2+ 0 mute Left 2 1+ 1+ 2+ 0 mute No clonus. 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 He was also evaluated for severe fatigue with some fatigable weakness. A postsynaptic neuromuscular junction defectwas considered although his acetylcholine receptor antibody titer was negative. He has not undergone repetitive nerve stimulation due to the relatively mild fatigability but he did have a trial of Mestinon, 60 mg twice daily. He found this significantly impactful to his symptoms even at a low dose of 1/2 tablet twice a day. He incremented his dose to a full tablet twice a day and continued feel like this is quite helpful. However, he finds it is not necessarily persistent in its effect particularly on very bad days. We talked about the implication of this therapeutic effect. 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 I would like him to increase his dose of Mestinon from 60 mg p.o. twice daily to 60 mg p.o. 3 times daily with an extra half tablet being used on bad days or prior to exertion. I would like to repeat his paraneoplastic panel to assess for presynaptic calcium channel antibodies, repeat his acetylcholine receptor antibody and include a MuSK antibody. If he feels to achieve adequate improvement with, a question would be whether he might benefit from a single course of immunoglobulin. We talked about this and I gave him some handouts look at the infusion. We will touch base in approximately 4 weeks by telehealth to gauge how he did with the increased dose of Mestinon. At that time we could also consider extending his electrodiagnostic study to evaluate for pre- or post- synaptic NMJ disorders. SUMMARY: 1.Increase the Mestinon to 60 mg tid, with use of 30-60 mg on bad days 2. Touch base ~4 weeks - discuss the IVIG 3. Paraneoplastic and MuSK Orders Placed This Encounter Procedures ??? Paraneoplastic Autoantibody Eval, Serum ??? Miscellaneous Lab request Follow-up: 4-6 weeks, TH. LAURA OBRIEN MD [facility] Ship Purser, Neuromuscular Medicine [facility] 08/20/20 5:10 PM I spent 40 minutes of face-face time with the patient, with 21 minutes of this time spent in counseling and coordination of care. documented in this encounter Plan of Treatment Upcoming Encounters Date Type Department Care Team (Late st Contact Info) Description 06/13/2024 3:00 PM EDT [place] [address] Laura Obrien MD [facility] [place] [address] 12/12/2024 3:30 PM EST [place] [address] Laura Obrien MD [facility] [place] [address] documented as of this encounter Procedures Procedure Name Priority Date/Time Associated Diagnosis Comments MISCELLANEOUS LAB REQUEST Routine 08/20/2020 3:33 PM EST Other fatigue [facility] PERSAUD TEST-PERSAUD Routine 08/20/2020 3 :33 PM EST HC VENIPUNCTURE Routine 08/20/2020 3:33 PM EST Other fatigue documented in this encounter Results * [facility] Persaud Test-Persaud (08/20/2020 3:33 PM EST) [facility] Persaud Test ? Result ? Flag ??Unit ?RefValue --- MuSK Autoantibody, S ? 0.00 ? nmol/L ??0.00-0.02 ?A negative result does not exclude the diagnosis of ?autoimmune myasthenia gravis. Testing for acetylcholine ?receptor binding and modulating antibodies, and striational ?antibody should be considered. ? --ADDITIONAL INFORMATION-------- ?This test was developed using an analyte specific reagent. ?Its performance characteristics were determined by [facility] in a manner consistent with CLIA requirements. This ?test has not been cleared or approved by the U.S. Food and ?Drug Administration. ?Test Performed by: ?[facility] ?[address] [place] [address] ?Drying Oven Tender: Franck Spicer M.D. Ph.D.; CLIA# [id number] [facility] Blood specimen (specimen) Venous Draw / Unknown 08/20/2020 3:33 PM EST 08/23/2020 4:15 PM EST Narrative Resulting Agency Comment Spec In Lab Laura Obrien MD CHEMISTRY ORDERABLE S Performing Organization Address [facility] Co de Phone Number [facility] [place] [address] * Miscellaneous Lab request (08/20/2020 3:33 PM EST) [facility] Lab Result Request received in lab. [facility] Blood specimen (specimen) 08/20/2020 3:33 PM EST 08/20/2020 3:47 PM EST Narrative Resulting Agency Comment Spec In Lab Laura Obrien MD HEMATOLOGY ORDERABL ES Performing Organization Address [facility] de Phone Number [facility] [place] [address] * Paraneoplastic Autoantibody Eval, Serum (08/20/2020 3:33 PM EST) [facility] Paraneo Eval Interpretation SEE COMMENTS [facility] Comment: No informative autoantibodies were detected in the Paraneoplastic Evaluation. However, a negative result does not exclude neurological autoimmunity with or without associated neoplasia. Sensitivity and specificity of antibody testing are enhanced by testing both serum and CSF. Test Performed by: [place] [address] Drying Oven Tender: Franck Spicer M.D. Ph.D.; CLIA# [id number] DAT-1 (Anti-Neuronal Nuclear Ab, Type 1) Negative <1:[address] [facility] Comment: Test Performed by: [place] [id number] Drying Oven Tender: Franck Spicer M.D. Ph.D.; CLIA# [id number] DAT-2 (Anti-Neuronal Nuclear Ab,Type 2) Negative <1:[address] [facility] Comment: ADDITIONAL INFORMATION This test was developed and its performance characteristics determined by [facility] in a manner consistent with CLIA requirements. This test has not been cleared or approved by the U.S. Food and Drug Administration. Test Performed by: [facility] [address] Drying Oven Tender: Franck Spicer M.D. Ph.D.; CLIA# [id number] DAT-3 (Anti-Neuronal Nuclear Ab, Type 3) Negative <1:[address] [facility] Comment: ADDITIONAL INFORMATION This test was developed and its performance characteristics determined by [facility] in a manner consistent with CLIA requirements. This test has not been cleared or approved by the U.S. Food and Drug Administration. Test Performed by: [facility] [address] Drying Oven Tender: Franck Spicer M.D. Ph.D.; CLIA# [id number] AGNA-1 (Anti-Glial Nuclear Ab, Type 1) Negative <1:[address] [facility] Comment: ADDITIONAL INFORMATION This test was developed and its performance characteristics determined by [facility] in a manner consistent with CLIA requirements. This test has not been cleared or approved by the U.S. Food and Drug Administration. Test Performed by: [facility] [address] Drying Oven Tender: Franck Spicer M.D. Ph.D.; CLIA# [id number] INDEPENDENT LIVING INSTRUCTOR-1 (Purkinje Cell Cytoplasmic Ab-Type 1) Negative <1:[address] [facility] Comment: ADDITIONAL INFORMATION This test was developed and its performance characteristics determined by [facility] in a manner consistent with CLIA requirements. This test has not been cleared or approved by the U.S. Food and Drug Administration. Test Performed by: [facility] [address] Drying Oven Tender: Franck Spicer M.D. Ph.D.; CLIA# [id number] INDEPENDENT LIVING INSTRUCTOR-2 (Purkinje Cell Cytoplasmic Ab-Type 2) Negative <1:[address] [facility] Comment: ADDITIONAL INFORMATION This test was developed and its performance characteristics determined by [facility] in a manner consistent with CLIA requirements. This test has not been cleared or approved by the U.S. Food and Drug Administration. Test Performed by: [facility] [address] Drying Oven Tender: Franck Spicer M.D. Ph.D.; CLIA# [id number] INDEPENDENT LIVING INSTRUCTOR-Type Tr (Purkinje Cell Cytoplasmic Ab-Type Tr) Negative <1:[address] [facility] Comment: ADDITIONAL INFORMATION This test was developed and its performance characteristics determined by [facility] in a manner consistent with CLIA requirements. This test has not been cleared or approved by the U.S. Food and Drug Administration. Test Performed by: [facility] [address] Drying Oven Tender: Franck Spicer M.D. Ph.D.; CLIA# [id number] Amphiphysin Antibody Negative <1:[address] [facility] Comment: ADDITIONAL INFORMATION This test was developed and its performance characteristics determined by [facility] in a manner consistent with CLIA requirements. This test has not been cleared or approved by the U.S. Food and Drug Administration. Test Performed by: [facility] [address] Drying Oven Tender: Franck Spicer M.D. Ph.D.; CLIA# [id number] CRMP-5-IgG Negative <1:[address] [facility] Comment: ADDITIONAL INFORMATION This test was developed and its performance characteristics determined by [facility] in a manner consistent with CLIA requirements. This test has not been cleared or approved by the U.S. Food and Drug Administration. Test Performed by: [facility] [address] Drying Oven Tender: Franck Spicer M.D. Ph.D.; CLIA# [id number] Striated Muscle Ab Negative <1:[address] [facility] Comment: ADDITIONAL INFORMATION This test was developed and its performance characteristics determined by [facility] in a manner consistent with CLIA requirements. This test has not been cleared or approved by the U.S. Food and Drug Administration. Test Performed by: [facility] [address] Drying Oven Tender: Franck Spicer M.D. Ph.D.; CLIA# [id number] P/Q-Type Ca Channel Ab 0.00 <=0.02 nmol/L [facility] Comment: ADDITIONAL INFORMATION This test was developed and its performance characteristics determined by [facility] in a manner consistent with CLIA requirements. This test has not been cleared or approved by the U.S. Food and Drug Administration. Test Performed by: [facility] [address] Drying Oven Tender: Franck Spicer M.D. Ph.D.; CLIA# [id number] N-Type Ca Channel Ab 0.00 <=0.03 nmol/L [facility] Comment: ADDITIONAL INFORMATION This test was developed and its performance characteristics determined by [facility] in a manner consistent with CLIA requirements. This test has not been cleared or approved by the U.S. Food and Drug Administration. Test Performed by: [facility] [address] Drying Oven Tender: Franck Spicer M.D. Ph.D.; CLIA# [id number] AChR Gang Neuronal Ab 0.00 <=0.02 nmol/L [facility] Comment: ADDITIONAL INFORMATION This test was developed and its performance characteristics determined by [facility] in a manner consistent with CLIA requirements. This test has not been cleared or approved by the U.S. Food and Drug Administration. Test Performed by: [facility] [address] Drying Oven Tender: Franck Spicer M.D. Ph.D.; CLIA# [id number] Neuronal (V-G) K+ Channel Ab 0.00 <=0.02 nmol/L [facility] Comment: ADDITIONAL INFORMATION This test was developed and its performance characteristics determined by [facility] in a manner consistent with CLIA requirements. This test has not been cleared or approved by the U.S. Food and Drug Administration. Test Performed by: [place] [address] Drying Oven Tender: Franck Spicer M.D. Ph.D.; CLIA# [id number] Blood specimen (specimen) 08/20/2020 3:33 PM EST 08/30/2020 12:12 PM EST Narrative Resulting Agency Comment Spec In Lab Laura Obrien MD CHEMISTRY ORDERABLE S Performing Organization Address City/State/[facility] Co de Phone Number [facility] [place] [address] documented in this encounter Visit Diagnoses Diagnosis Other fatigue documented in this encounter Care Teams Coal Conveyor Operator Relationship Specialty Start Date End Date González Luis DO [address] [place] [address] PCP - General Family Medicine 04/23/17 documented as of this encounter
--- OUTSIDE RECORDS SUMMARY | 2024-05-20 02:49 | XMS_ITS | Encounter Summary ---
Author Organization [facility] [place] [address] Care Team Providers Care Towboat Operator Name Role Phone González Luis DO Primary Care Provider Reason for Referral * Diagnostic Test (Routine) - Closed Specialty Diagnoses / Procedures Referred By Contac t Referred To Contact Radiology Diagnoses Myasthenia gravis Procedures CT Chest w Contrast Laura Chavez MD [facility] [place] [place] [address] [facility] [place] [address] Referral ID Status Reason Start Date Expiration Date V isits Requested Visits Authorized [id number] Closed Specialty Service Requested 01/21/2021 07/23/2022 1 1 Reason for Visit * Diagnostic Test (Routine) - Closed Specialty Diagnoses / Procedures Referred By Contac t Referred To Contact Radiology Diagnoses Myasthenia gravis Procedures CT Chest w Contrast Laura Chavez MD [facility] [place] [place] [address] [facility] [place] [address] Referral ID Status Reason Start Date Expiration Date V isits Requested Visits Authorized [id number] Closed Specialty Service Requested 01/21/2021 07/23/2022 1 1 Encounter Details Date Type Department Care Team (Latest Contact Info) Description 02/08/2021 4:26 PM EDT - 02/08/2021 5:23 PM EDT [place] [address] Laura Chavez MD [facility] [place] [address] Myasthenia gravis Discharge Disposition: Home Social History Tobacco Use [...] Take 10 mg by mouth daily. 11/10/2023 melatonin 5 mg Tablet Take 5 mg by mouth nightly. 03/29/2021 fluticasone-salmeterol (ADVAIR) 250-50 mcg/dose Disk with Device [...] 3:00 PM EDT [place] [phone] Laura Chavez MD [facility] [place] [place] [address] 12/12/2024 3:30 PM EST [place] [phone] Laura Chavez MD [facility] [place] [place] [address] documented as of this encounter Procedures Procedure Name Priority Date/Time Associated Diagnosis Comments CT CHEST W CONTRAST Routine 02/08/2021 5 :19 PM EDT Myasthenia gravis documented in this encounter Results * (ABNORMAL) CT Chest w Contrast (02/08/2021 5:19 PM EDT) Anatomical Region Laterality Modality Chest Computed Tomogra phy Impressions 02/11/2021 10:26 AM EDT 1. ??No mediastinal mass seen. 2. ??UNEXPECTED FINDING. 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 Thank you for letting us participate in the care of this patient. ??If you are a health care provider and have any questions regarding this report, please contact the number below. ??For patients who have questions please contact the health companion caregiver that requested your imaging first. ? 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 Thin-section reconstructions as well as coronal and sagittal reformatted images were generated. COMPARISON: None FINDINGS: Pulmonary parenchyma: Curvilinear scarring in the [...] Skeletal structures: Degenerative changes throughout the spine. Resulting Agency Comment Unexpected Finding Laura Chavez MD IMG CT ORDERABLES documented in this encounter Visit Diagnoses Diagnosis Myasthenia gravis Myasthenia gravis without exacerbation documented in this encounter Administered Medications Inactive Administered Medications - up to 3 most recent administrations Medication Order MAR Action Action Date Dose Rate Site iohexoL (Omnipaque) (350 mg/mL) injection solution 0-200 mL 0-200 mL, Intravenous, ONCE PRN, 1 dose, Starting on Thu02/08/21 at 1719, Until Thu02/08/21 at 1719, Per Protocol, Warning Vesicant/Irritant Medication , Radiology Contrast, Routine Given 02/08/2021 5:19 PM EDT 60 mLs documented in this encounter Care Teams Towboat Operator Relationship Specialty Start Date End Date González Luis DO [address] [place] [address] [address] [place] [address] PCP - General Family Medicine 04/23/17 documented as of this encounter
--- OUTSIDE RECORDS SUMMARY | 2024-05-20 02:49 | XMS_ITS | Encounter Summary ---
[place] [address] Care Team Providers Care Inpatient Services Rn Name Role Phone González Luis DO Primary Care Provider Reason for Referral * Diagnostic Test (Routine) - Closed Specialty Diagnoses / Procedures Referred By Contac t Referred To Contact Diagnoses Splenic artery aneurysm Procedures AAA Duplex, Complete/Bilateral [facility] [address] [place] [phone] [facility] [address] [place] [phone] Referral ID Status Reason Start Date Expiration Date V isits Requested Visits Authorized [id number] Closed Specialty Service Requested 02/20/2021 02/20/2022 1 1 * Diagnostic Test (Routine) - Closed Specialty Diagnoses / Procedures Referred By Contac t Referred To Contact Diagnoses Splenic artery aneurysm Procedures Duplex Study Visceral Arteries, Comp [facility] [address] [place] [phone] [facility] [address] [place] [phone] Referral ID Status Reason Start Date Expiration Date V isits Requested Visits Authorized [id number] Closed Specialty Service Requested 02/20/2021 02/20/2022 1 1 Encounter Details Date Type Department Care Team (Late st Contact Info) Description 02/20/2021 Orders Only Vascular Surgery at [place] [phone] Jayleen Nieto, DEANDRE Splenic artery aneurysm Social History Tobacco Use [...] 3:00 PM EDT Office Visit Neurology at [place] [phone] Laura Chavez MD [facility] [place] [address] 12/12/2024 3:30 PM EST [place] [phone] Laura Chavez MD [facility] [place] [address] documented as of this encounter Results * AAA Duplex, Complete/Bilateral (03/29/2021 7:18 AM EDT) VB Text Report Department: Vascular Surgery Lab Patient: [id number] (VALERIANO HARDIN) CPT: 12896 ICD10: I72.8 Referring Physician: KVNG PRINCE ?? Indications: 75 year old male with splenic artery aneurysm, ? AAA ICD10 Diagnosis Code: I72.8 Findings: Jessica Renal Aorta ? PSV (cm/s): 86 ? EDV (cm/s): 0 ? Diam AP (cm): 2.3 ? Diam Lateral (cm): 2.3 Infra Renal Aorta ? PSV (cm/s): 71 ? EDV (cm/s): 0 ? Diam AP (cm): 2.2 ? Diam Lateral (cm): 2.2 Distal Aorta ? PSV (cm/s): 92 ? EDV (cm/s): 0 ? Diam AP (cm): 2.2 ? Diam Lateral (cm): 2.2 Common Iliac Artery, Proximal, Right ? PSV (cm/s): 60 ? EDV (cm/s): 0 ? Diam AP (cm): 1.7 ? Diam Lateral (cm): 1.7 Common Iliac Artery, Proximal, Left ? PSV (cm/s): 61 ? EDV (cm/s): 0 ? Diam AP (cm): 1.6 ? Diam Lateral (cm): 1.5 Interpretatio n: Patent abdominal aorta and proximal common iliac arteries with no evidence of stenosis or aneurysm. Comparison: No previous study in our vascular lab database for comparison. Electronicall y Signed by: KVNG PRINCE on 2021-03-29 01:29:39 PM [facility] VB Text Report End of Report [facility] 03/29/2021 7:18 AM EDT Kvng Prince MD VASCULAR ORDERABLES [facility] * Duplex Study Visceral Arteries, Comp (03/29/2021 7:18 AM EDT) VB Text Report Department: Vascular Surgery Lab Patient: [id number] (VALERIANO HARDIN) CPT: 87903 ICD10: I72.8 Referring Physician: KVNG PRINCE ?? Indications: 75 year old male with splenic artery aneurysm, ? size ICD10 Diagnosis Code: I72.8 Findings: Unilateral ? Waveform ? PSV cm/s ??EDV cm/s ?? Jessica Visceral Aorta ? 86 ? 0 ?? Celiac Artery, Proximal ??[place]-Biphasic ? 136 ?48 ?? Celiac Artery, Mid ? [place]-Biphasic ? 133 ?45 ?? Celiac Artery, Distal ?[place]-Biphasic ? 109 ?35 ?? Sup Mes Artery Proximal ??Triphasic ? 192 ?17 ?? Sup Mes Artery Middle ?Triphasic ?88 ? 0 ?? Sup Mes Artery Distal ?Triphasic ? 114 ? 0 ?? Hepatic Artery ? [place]-Biphasic ?97 ?16 ?? Splenic Artery ? Monophasic ?100 ?22 ?? Inf Mes Artery ? Bi-Triphasic ?173 ? 0 ?? Interpretation: Patent splenic artery with a aneurysm in the distal segment of the artery measuring approximately 3.5 x 3.4 cm in diameter. Mural thrombus is noted within the aneurysm sac. The very distal splenic artery at the hilum and the spleen was not visualized due to overlying bowel gas; cannot exclude a larger aneurysm diameter. Patent celiac, superior mesenteric and inferior mesenteric arteries with no evidence of significant stenosis. Patent common hepatic artery with antegrade Doppler waveforms. Electronically Signed by: KVNG PRINCE on 2021-03-29 01:26:30 PM [facility] VB Text Report End of Report [facility] 03/29/2021 7:18 AM EDT Kvng Prince MD VASCULAR ORDERABLES [facility] documented in this encounter Visit Diagnoses Diagnosis 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 documented in this encounter Care Teams Inpatient Services Rn Relationship Specialty Start Date End Date González Luis DO [address] [place] [address] PCP - General Family Medicine 04/23/17 documented as of this encounter
--- OUTSIDE RECORDS SUMMARY | 2024-05-20 02:49 | XMS_ITS | Encounter Summary ---
Author Organization [facility] Address [facility] [place] [address] Care Team Providers Care Fur Nailer Name Role Phone González Luis DO Primary Care Provider Encounter Details Date Type Department Care Team (Late st Contact Info) Description 10/02/2020 8:00 AM EST TH Visit (TeleHealth) [place] [address] Laura Obrien MD [facility] [place] [address] Fatigue, unspecified type Social History Tobacco Use Types Packs/Day Years [...] Progress Notes * Laura Obrien MD - 10/02/2020 8:00 AM EST Neurology Clinic Telephone/Telehealth Follow-up Note Per COVID19 Restrictions 09/30/20 11:18 PM Patient Name: Juan J Hardin : 1945 PCP: González Luis DO Patient ID: Juan J Hardin is a 75 y.o. male was evaluated remotely instead of scheduled FU visit. Last visit was08/20/2020. 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 PMHx relevant to diagnosis: Patient Active Problem List Diagnosis ??? Rcsyypy-Kayng-Hzjrt disease ??? Gait abnormality Assessment from last visit, 08/20/2020: Dr. Hardin presents today for reevaluation of [...] This Encounter Procedures ??? Paraneoplastic Autoantibody Eval, Serum: negative ??? Miscellaneous Lab request: MuSK negative Follow-up: 4-6 weeks, TH. Interval History: He continues to have a symptom of feeling suddenly out of gas. Since trailing low dose Mestinon, he seems to feel it has been helpful with the episodes per his . He has used this at a dose of 30 mg (0.5 tab) tid and then 0.5 tab as needed. He has used 0.5 tab before activity. He has not experienced any side effects of the pyridostigmine and in particular he has not had symptoms of bradycardia. He has also not experienced any significant GI effects. In response to the use of the Mestinon he feels that his legs have more pop and he is in general more vibrant. He describes more than diurnal variation with variation over days - he refers to a 10-14 day side. His voice will get soft and raspy. In this setting he also notes trouble swallowing that is more prominent in the evening. Diplopia is unusual but occurs. His endurance is poor. Mestinon and rest help these symptoms. Mestinon, 30 mg at 5:30-6A; noon; 6PM. Relevant work up: Paraneoplastic and MuSK negative Medications: Medications 08/20/20 1349 Medication Sig Taking? melatonin 5 mg Tablet Take by mouth. pyridostigmine (MESTINON) 60 mg Tablet Take 0.5 tablets by mouth 3 times daily. levothyroxine (SYNTHROID) 50 mcg Tablet Take 50 mcg by mouth daily. tamsulosin (FLOMAX) 0.4 mg Capsule, Sust. Release 24 hr Take 2 capsules by mouth daily. fluticasone-salmeterol (ADVAIR) 250-50 mcg/dose [...] / Plan: Juan J Hardin is a 75 y.o. male who was evaluated remotely by in follow up of neuropathy and morerecently episodes of profound fatigue. 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 I would not categorize him as clinically definite disease but clinically possible.Given he is responding to anticholinesterase therapy, I will continue with this and optimize. I did talk to him that this does not rule out other systemic causes and I would encourage him to continue to work with Dr. Luis on this. We discussed increasing his Mestinon to 60 mg 4X daily with 1 X prn. I have recommended proceeding with EMG, RNS and SF-EMG. We did speak briefly about IVIG - I think this is more than is needed with his current symptoms. Follow-up: 6 weeks F/U to see how he is doing with the increased Mestinon dose. LAURA OBRIEN MD [facility] Appliance Line Assembler, Neuromuscular Medicine [facility] 09/30/20 11:18 PM Patient provided verbal consent prior to initiation of this telephone/televisit encounter and expressed understanding that the telephone/televisit may be billed similar to a clinic visit. I spent a total of 25 Minutes in discussion/counseling related to ongoing medical problems as well as medication management. documented in this encounter Plan of Treatment Upcoming Encounters Date Type Department Care Team (Late st Contact Info) Description 06/13/2024 3:00 PM EDT Office [place] [address] Laura Obrien MD [facility] [place] [address] 12/12/2024 3:30 PM EST Office [place] [address] Laura Obrien MD [facility] [address] documented as of this encounter Visit Diagnoses Diagnosis Fatigue, unspecified type documented in this encounter Care Teams Fur Nailer Relationship Specialty Start Date End Date González Luis DO [address] [place] [address] PCP - General Family Medicine 04/23/17 documented as of this encounter
--- OUTSIDE RECORDS SUMMARY | 2024-05-20 02:49 | XMS_ITS | Encounter Summary ---
Author Organization [facility] Address [facility] [place] [address] Care Team Providers Care Riveter Automobile Brakes Name Role Phone González Luis DO Primary Care Provider [phone] Reason for Visit * Reason Onset Date Comments Appointment 01/22/2021 Encounter Details Date Type Department Care Team (Late st Contact Info) Description 01/22/2021 [place] [address] Laura Chavez MD [facility] [place] [address] Appointment Social History Tobacco Use Types Packs/Day [...] * Telephone Encounter - Nesha Paul - 01/22/2021 8:41 AM EDT Scheduling Instructions Provider: Dr Chavez Visit Type (paste GUDELIA Instructions or manually enter): Return for Telehealth, after imaging Appt Note: Patient needs to be scheduled for MRI and CT Additional Info Needed: MRI and CT question need to be asked documented in this encounter Plan of Treatment Upcoming Encounters Date Type Department Care Team (Late st Contact Info) Description 06/13/2024 3:00 PM EDT [place] [address] Laura Chavez MD [facility] [place] [address] 12/12/2024 3:30 PM EST [place] [address] Laura Chavez MD [facility] [place] [address] documented as of this encounter Visit Diagnoses Not on filedocumented in this encounter Care Teams Riveter Automobile Brakes Relationship Specialty Start Date End Date González Luis DO [address] [place] [address] [address] [place] [address] PCP - General Family Medicine 04/23/17 documented as of this encounter
--- OUTSIDE RECORDS SUMMARY | 2024-05-20 02:49 | XMS_ITS | Encounter Summary ---
Author Organization [facility] Address [facility] [place] [address] Care Team Providers Care Seasonal Retail Merchandiser Name Role Phone González Luis DO Primary Care Provider [phone] Reason for Visit * Reason Onset Date Comments TeleHealth 11/22/2020 Appt on 11/23 Encounter Details Date Type Department Care Team (Late st Contact Info) Description 11/22/2020 Telephone [place] [address] Laura Chavez MD [facility] [place] [place] [address] TeleHealth (Appt on 11/23) Social History Tobacco Use Types Packs/Day Years [...] encounter Miscellaneous Notes * Telephone Encounter - Pepper Adamson CMA - 11/22/2020 2:37 PM EST Updated allergy/meds on 11/12 documented in this encounter Plan of Treatment Upcoming Encounters Date Type Department Care Team (Late st Contact Info) Description 06/13/2024 3:00 PM EDT Office [place] [address] Laura Chavez MD [facility] [place] [place] [address] 12/12/2024 3:30 PM EST Office [place] [address] Laura Chavez MD [facility] [place] [place] [address] documented as of this encounter Visit Diagnoses Not on filedocumented in this encounter Care Teams Seasonal Retail Merchandiser Relationship Specialty Start Date End Date González Luis DO [address] [place] [address] PCP - General Family Medicine 04/23/17 documented as of this encounter
--- OUTSIDE RECORDS SUMMARY | 2024-05-20 02:49 | XMS_ITS | Encounter Summary ---
Author Organization [facility] [place] [address] Care Team Providers Care Butcher Or Smallgoods Maker Name Role Phone González Luis DO Primary Care Provider [phone] Reason for Referral * Diagnostic Test (Routine) - Closed Specialty Diagnoses / Procedures Referred By Radha t Referred To Contact Diagnoses Splenic artery aneurysm Procedures Duplex Study Visceral Arteries, Comp Kvng Prince MD [facility] [place] [address] [facility] Vascular Lab [address] [address] Referral ID Status Reason Start Date Expiration Date V isits Requested Visits Authorized [id number] Closed Specialty Service Requested 05/17/2021 05/17/2022 1 1 Encounter Details Date Type Department Care Team (Late st Contact Info) Description 05/17/2021 Orders Only [place] [phone] Jayleen Nieto RN Splenic artery aneurysm Social History Tobacco Use [...] 3:00 PM EDT [place] [phone] Laura Chavez MD [facility] [place] [address] 12/12/2024 3:30 PM EST [place] [phone] Laura Chavez MD [facility] [place] [address] documented as of this encounter Results * Duplex Study Visceral Arteries, Comp (11/28/2021 9:05 AM EST) VB Text Report Department: Vascular Surgery Lab Patient: [id number] (VALERIANO HARDIN) CPT: 58077 Referring Physician: KVNG PRINCE ?? Indications: s/p coil embolization of splenic artery aneurysm, ? patency Findings: Unilateral ? Waveform ? PSV cm/s ??EDV cm/s ??Patent ?? Jessica Visceral Aorta ? 86 ?13 ? Celiac Artery, Proximal ??[place]-Biphasic ? 102 ?27 ? Celiac Artery, Mid ? [place]iphasic ?85 ?31 ? Celiac Artery, Distal ?[place]-Biphasic ?73 ?20 ? Sup Mes Artery Proximal ??Bi-Triphasic ?161 ?32 ? Sup Mes Artery Middle ?Bi-Triphasic ?117 ?18 ? Sup Mes Artery Distal ?Biphasic ? 57 ? 0 ? Hepatic Artery ? [place]iphasic ? 115 ?35 ? Splenic Artery ?No [...] artery documented in this encounter Care Teams Butcher Or Smallgoods Maker Relationship Specialty Start Date End Date González Luis DO [address] [place] [address] [address] [place] [address] PCP - General Family Medicine 04/23/17 documented as of this encounter
--- OUTSIDE RECORDS SUMMARY | 2024-05-20 02:49 | XMS_ITS | Encounter Summary ---
Author Organization [facility] Address [facility] [place] [address] Care Team Providers Care City Comptroller Name Role Phone González Luis DO Primary Care Provider Encounter Details Date Type Department Care Team (Latest Contact Info) Description 02/08/2021 3:40 PM EDT Laboratory Appointment Lab [address] [place] [phone] Right leg weakness Social History Tobacco Use Types Packs/Day Years [...] 3:00 PM EDT [place] [phone] Laura Chavez MD [facility] [place] [address] 12/12/2024 3:30 PM EST [place] [phone] Laura Chavez MD [facility] [place] [place] [address] documented as of this encounter Procedures Procedure Name Priority Date/Time Associated Diagnosis Comments HC CREATININE Routine 02/08/2021 3:47 PM EDT Right leg weakness documented in this encounter Results * Creatinine (02/08/2021 3:47 PM EDT) Creatinine 0.87 0.80 - 1.50 mg/dL [facility] Estimated GFR 84 >=60 mL/min/1. 73 m?? [facility] Comment: This patient? s estimated glomerular filtration rate (eGFR) is between 84 mL/min/1.73 m2 (patients with less muscle mass per kg body weight) and 98 mL/min/1.73 m2 (patients with more muscle mass per kg body weight) as determined by the CKD-EPI equation. Assessment of eGFR is not appropriate when creatinine concentrations are rapidly changing. For clinical decisions where creatinine clearance will affect therapy, a 24-hour urine creatinine clearance may be advised. Assignment of CKD stage 1 - 5 for patients with an eGFR near the transition point between stages may be based on clinical assessment of muscle mass and symptoms in addition to eGFR. Blood specimen (specimen) 02/08/2021 3:47 PM EDT 02/08/2021 4:04 PM EDT Narrative Resulting Agency Comment Spec In Lab Laura Chavez MD CHEMISTRY ORDERABLE S [facility] [place] [address] documented in this encounter Visit Diagnoses Diagnosis Right leg weakness Other musculoskeletal symptoms referable to limbs documented in this encounter Care Teams City Comptroller Relationship Specialty Start Date End Date González Luis DO [address] [place] [address] PCP - General Family Medicine 04/23/17 documented as of this encounter
--- OUTSIDE RECORDS SUMMARY | 2024-05-20 02:49 | XMS_ITS | Encounter Summary ---
Author Organization [facility] Address [facility] [place] [address] Care Team Providers Care Closed [employer] Screen Watcher Name Role Phone González Luis DO Primary Care Provider Encounter Details Date Type Department Care Team (Late st Contact Info) Description 07/05/2019 11:30 AM EDT Office [place] [address] Laura Chavez MD [facility] [place] [address] Fatigue, unspecified type; Neuropathy; Cervical spondylosis Social History Tobacco Use Types Packs/Day Years [...] Sign Reading Time Taken Comments Blood Pressure 137/86 07/05/2019 11:21 AM EDT Pulse 70 07/05/2019 11:21 AM EDT Temperature - - Respiratory Rate - - Oxygen Saturation - - Inhaled Oxygen Concentration - - Weight 98 kg (216 lb) 07/05/2019 11:21 AM EDT Wi th shoes Height 182.9 cm (6') 07/05/2019 11:21 AM EDT Rep orted Body Mass Index 29.29 07/05/2019 11:21 AM EDT documented in this encounter Progress Notes * Laura Chavez MD - 07/05/2019 11:30 AM EDT Subjective: Jaun J Hardin is a 74 y.o. male referred by Dr. Luis in follow up of possible neuropathy. Referral request: evaluate for peripheral neuropathy Since last visit: His energy level has changed. He is still working with a weight trainer. Strength has improved. Fatigue has improved. Endurance is stilla problem. He notes that he is having trouble with quickness. No falls or near falls. When he tries to walk fast it doesn't feel good, so he doesn't do it. He feels dyscoordinated and spastic. Some muscle cramping - intrinsic to the feet. Paresthesias - remain random. Painful - feels like glass. He had an episode during which he experienced significant weakness in predominantly his legs. This resoled spontaneously. His voice is not strong - periodically will go away (ie - become hoarse or soft without dysarthria).. MRI brain (08/2017): IMPRESSION No evidence recent [...] evidence for myelopathy. Serologic studies: Normal: SPEP/JUDE, MMA Comprehensive Neuropathy Panel genetic testing: Variants of Uncertain Significance identified in AARS (CMT2N), DCTN1 (HMN7B) and BRENNAN (AR). 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 Luis. He is here for evaluation of possible neuropathy in the setting of balance difficulties which have become more noticeable in the last few years. He notes a feeling of being unsteady and, although he has not had any falls, feeling he is at risk for falls. This is not clearly a catching of his toes or tripping, nor does he have any weakness such as buckling of the knees, but rather a true ataxic sensation such that he feels his gait especially with making quick turns or changes in position would put him at risk for fall. Gait and balance changes are associated with some numbness predominantly on the lynda ntar aspects of the feet without associated pain. He attributes this to tarsal tunnel syndrome although the symptoms are bilateral. He cannot relate onset of symptoms to any specific event. Balance difficulties are not severe but they are persistent and seem to be worsening gradually. He has no associated pain and denies any difficulty with neck, mid back or low back. He does not have any tingling or numbness in his hands and denies any autonomic symptoms. Assessment from last visit: Juan J Hardin is a pleasant 73 y.o. 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 He is doing well with improvement in some of his clinical parameters with exercise directed by a weight trainer. His clinical exam dos not show any evidence of increasing myelopathic findings and is in fact stable from last visit. That being said he has detected some progression of especially his neuropathic symptoms because of this I have recommended some screening studies for reversible acquired etiologies that could be difficult to picket [employer] in the setting of neuropathy. He has had some neuropathic pain. This is not severe enough that he would want to consider neuropathic pain medications. Outside reports reviewed: lab reports and office notes. Patient's medications, allergies, past medical, surgical, social and family histories were reviewedand updated as appropriate. Review of Systems Pertinent items are noted in HPI. Objective: Physical Exam: BP 137/86 (BP Location (NBP): Left arm, Patient Position: Sitting, BP Cuff Sizes: Adult (25-34 cm)) Pulse 70 Ht 182.9 cm (6') Comment: Reported Wt 98 kg (216 lb) Comment: With shoes BMI 29.29kg/m?? Appearance: The patient is a healthy-appearing male [...] Tongue was midline without fasciculations or atrophy. Motor: NE NF SA EE EF WE WF FA FE Syd HG Right nt 5/5/5 5/5/5 5 5 5 5 4+ 5- 4+ 5 Left nt 5/5/5 5/5/5 5 5 5 5 4+ 5- 5- 5 HF HE KE KF HAB HADD ADF APF I ToeF E Right 5/5-/5- nt 5 5 nt nt 5 5 5 4 NRt 5- Left 5/5-/4+ nt 5 5 nt nt 5 5 5 4 NRt 5 There is no atrophy or fasciculations. There is no myoclonus, tremor, or drift. Sensory: Vibration: Ltoe 0 Rtoe 0 NRT LMM 0 RMM 0 Lknee 7 Rknee 7 LDIP2 8 RDIP2 8 LDIP5 nt RDIP5 nt Pin: Asymmetry in pin sensation was demonstrated again over the L5 distribution on the right but not over the L4 distribution on the left. Coordination: No cerebellar ataxia. Gait and station: [...] 1+ 1+ 2+ 0 mute No clonus. Relevant lab (04/2017): Normal: B12 (430), HgbA1c (5.4) Abnormal: TSH elevated Relevant diagnostic Tests and Imaging: NCS/EMG: The sural SNAP amplitudes were reduced and medial plantar responses could not be obtained. The leftulnar SNAP was borderline in amplitude. The left radial SNAP amplitude was in the normal range but low normal. Superficial peroneal SNAP amplitudes were symmetric but borderline with preserved conduction velocities. The left peroneal motor response amplitude, distal motor latency and conduction velocity was preserved but amplitude was low normal. The tibial motor response amplitude was similarly low amplitude but greater than the peroneal motor response, with a preserved distal motor latency. The left ulnar motor response amplitude was normal with normal conduction velocity and distal motor latency. Late response latencies were preserved. Needle EMG revealed increased abnormal spontaneous activity in distal muscles of the left and right lower extremities. This was not seen in L5 innervated proximal muscles or distal upper extremity muscles although motor units were polyphasic. IMPRESSION: Abnormal study. There is electrodiagnostic evidence of a length-dependent, sensorimotor axonal neuropathy. The denervation of L4, L5 and S1 innervated muscles is out of proportion to nerve conductionabnormalities and lumbar polyradiculopathy should be considered in the differential although it wasnot supported by denervation in more proximal L5 innervated muscles. Clinical and radiologic correlation is recommended. Assessment: Dr. 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 Orders Placed This Encounter Procedures ??? Acetylcholine Receptor Ab Binding Follow-up 6-12 months. CAMILLE Arcos spent 25 minutes of face-face time with the patient, with 20 minutes spent in counseling and coordination of care. documented in this encounter Plan of Treatment Upcoming Encounters Date Type Department Care Team (Late st Contact Info) Description 06/13/2024 3:00 PM EDT Office [place] [address] Laura Chavez MD [facility] [place] [address] 12/12/2024 3:30 PM EST Office [place] [phone] Laura Chavez MD [facility] [place] [address] documented as of this encounter Procedures Procedure Name Priority Date/Time Associated Diagnosis Comments HC PCH ACETYLCHOLINE RECEPTOR ANTIBODY Routine 07/05/2019 1:20 PM EDT Fatigue, unspecified type documented in this encounter Results * Acetylcholine Receptor Ab Binding (07/05/2019 1:20 PM EDT) ACHr Binding Ab 0.00 <=0.02 nmol/L [facility] Comment: ADDITIONAL INFORMATION This test was developed and its performance characteristics determined by [facility] in a manner consistent with CLIA requirements. This test has not been cleared or approved by the U.S. Food and Drug Administration. Test Performed by: [address] [address] [employer]: Franck Spicer M.D. Ph.D.; CLIA# [id number] Blood specimen (specimen) 07/05/2019 1:20 PM EDT 07/05/2019 2:29 PM EDT Narrative Resulting Agency Comment Spec In Lab Laura Chavez MD CHEMISTRY ORDERABLE S Performing Organization Address City/State/[facility] Co de Phone Number [facility] [place] [address] documented in this encounter Visit Diagnoses Diagnosis Fatigue, unspecified type Neuropathy Mononeuritis of unspecified site Cervical spondylosis Cervical spondylosis without myelopathy documented in this encounter Care Teams Closed Circuit Screen Watcher Relationship Specialty Start Date End Date González Luis DO [address] [place] [address] PCP - General Family Medicine 04/23/17 documented as of this encounter
--- OUTSIDE RECORDS SUMMARY | 2024-05-20 02:49 | XMS_ITS | Encounter Summary ---
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 Name Role Phone González Luis DO Primary Care Provider [phone] Reason for Visit * Auth/Cert Specialty Diagnoses / Procedures Referred By Contac t Referred To Contact Diagnoses Splenic artery aneurysm SPLENIC ARTERY ANEURYSM SPLENIC ARTERY ANEURYSM POST OP [place] Procedures ARTERIOGRAMS Referral ID Status Reason Start Date Expiration Date Visits Re quested Visits Authorized [id number] 1 1 Encounter Details Date Type Department Care Team (Late st Contact Info) Description 04/11/2021 12:50 PM EDT - 04/11/2021 3:30 [place] [address] Dmitry Chaudhary MD [facility] [place] [address] ARTERIOGRAMS Social History Tobacco Use Types Packs/Day Years [...] AM EDT documented as of this encounter Discharge Summaries * Jodie Teixeira, RUPALI - 04/12/2021 9:26 AM EDT Inpatient - Discharge Summary Patient Name: Juan J Hardin Patient Age: 75 y.o. Birthdate: 1945 Admit date: 04/11/2021 Discharge date and time: 04/12/2021 Attending Physician: Dmitry Chaudhary MD Discharging Provider: Jodie Teixeira APRN Discharging Service: Vascular Surgery Operations/Major Procedures: 04/11/21 mesenteric angio via R groin access for coil embolization of splenic artery aneurysm Active Hospital Problems: Active Hospital Problems Diagnosis ??? Splenic artery aneurysm Resolved Hospital Problems No resolved problems to display. Active Non Hospital Problems: Active Non-Hospital Problems Diagnosis ??? Tltrmyu-Rbghj-Fsyug disease ??? 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 The patient does not have any symptoms from this. He is otherwise in good health. He is a former smoker, however quit 53 years ago. Patient's recovery with good PO intake, adequate output, and pain well controlled on PO meds. Access site dressing in R groin clean, dry, intact. He is medically cleared for discharge to [facility]. Patient will follow-up in the clinic in 2 weeks with CTA abdomen/pelvis prior. Hospital Course: Patient was admitted to hospital bed after above procedure where he experienced an episode of racing heart that did not recur and EKG at the time showed NSR. He remained AF w/ VSS and pain well controlled. Passing flatus but no BM since procedure. Voiding in normal amounts. Physical Exam Vitals reviewed. Constitutional: General: He is not in acute distress. Appearance: Normal appearance. He is normal weight. He is not ill-appearing. HENT: Head: Normocephalic and atraumatic. Cardiovascular: Rate and Rhythm: Normal rate and regular rhythm. Pulses: Normal pulses. Heart sounds: Normal heart sounds. Comments: 2+ DP and PT pulses bilat. Bilat LEs wwp Pulmonary: Effort: Pulmonary effort is normal. Breath sounds: Normal breath sounds. Abdominal: Palpations: Abdomen is soft. Tenderness: There is no abdominal tenderness. Comments: R groin access dressing c,d,i without surrounding erythema Musculoskeletal: Cervical back: Normal range of motion. Skin: General: Skin is warm and dry. Neurological: Mental Status: He is alert and oriented to person, place, and time. Psychiatric: Mood and Affect: Mood normal. Behavior: Behavior normal. Important Studies and Lab Data: Labs: Lab Results Component Value Date WBC 13.4 (H) 04/12/2021 HGB 15.6 04/12/2021 HCT 44.9 04/12/2021 MCV 87.5 04/12/2021 PLATELET 169 04/12/2021 Lab Results Component Value Date NA 138 04/12/2021 K 4.0 04/12/2021 CL 106 04/12/2021 CO2 24 04/12/2021 BUN 22 (H) 04/12/2021 CREATININE 0.82 04/12/2021 GLUCOSE 103 04/12/2021 CALCIUM 8.9 04/12/2021 ESTGFR 87 04/12/2021 Pending Studies and Lab Data: none Discharge Condition: good Discharge to: Home home Future Appointments and Orders Future Orders Complete By Expires CT Angiogram Abdomen & Pelvis w Contrast (Generic) [DYX613 Custom] 05/12/2021 11/11/2021 Process Instructions: Scheduling Instructions: Questions: Where will study be performed?: [facility] Radiology Reason for exam and clinical history: s/p coil embolization of splenic artery aneurysm, post-procedure exam Clinical information / mo questions: Stat read required?: Does patient require sedation?: GA rationale: Date of injury if applicable: Requested Time: Anticoagulation & Antiplatelet: Anticoagulation: none Antiplatelet: Agent: ASA Indication: vascular health promotion Intended Duration: life long For questions regarding these medications, please contact: Vascular surgery or PCP. Discharge Medications: Your Medications Continued medications with new dosing Dose Details pyridostigmine 60 mg Tab Commonly known as: Mestinon Take 0.5 tablets by mouth 3 times daily. What changed: ?? how much to take ?? when to take this 30 mg Quantity: 30 tablet Refills: 1 Continued medications, unchanged Dose Details albuteroL 90 mcg/actuation Hfaa Inhale 2 puffs into the lungs every 4 hours as needed for Wheezing. Use with spacer 2 puff Refills: 0 aspirin 325 mg Tab Take 325 mg by mouth daily. 325 mg Refills: 0 cetirizine 10 mg Tab Commonly known as: ZyrTEC Take 10 mg by mouth daily. 10 mg Refills: 0 fluticasone propion-salmeteroL 250-50 mcg/dose Dsdv Commonly known as: ADVAIR Inhale 1 puff into the lungs 2 times daily as needed. 1 puff Refills: 0 levothyroxine 50 mcg Tab Commonly known as: Synthroid Take 50 mcg by mouth daily. 50 mcg Refills: 0 meclizine 25 mg Tab Commonly known as: Antivert Take 25 mg by mouth 3 times daily as needed. 25 mg Refills: 0 multivitamin Tab Commonly known as: THERAGRAN Take 1 tablet by mouth daily. 1 tablet Refills: 0 tamsulosin 0.4 mg Cap Commonly known as: Flomax Take 1 capsule by mouth daily. 1 capsule Refills: 0 Updated Allergies/ADRs: Allergies Allergen Reactions ? ? Dust & Pollen Filter Mask [Facial Mask] ??? Pollen Extracts Follow-up Recommendations for Providers: Will f/u in a month with Dr. Chaudhary with CTA abd/pelvis prior. Instructions Given to Patient at Discharge: Patient Instructions Patient Instructions You were admitted on 04/11/21 after having a coil embolization to reduce the aneurysm on your splenic artery. This went very well. Dr. Chaudhary will want you to be seen in approximately one month with aCTA scan of your abdomen prior. The scan has been ordered for May 12 here at [facility]. You will receive confirmation of this in the mail. If for some reason you don't receive this within a week or so please call our office as your followup is very important. Call your doctor if: Any fever, any drainage, redness of the access site in the right groin or if you have any unusual abdominal pain. Activity level: up as tolerated. Diet: resume your previous regular diet Driving: no restrictions if you drove prior to the procedure Shower/Bath: No restrictions Wound Care: Anticipate resolution over the next week. You may remove the dressing tomorrow. Please report any concerns for infection such as redness, warmth, drainage, tenderness. For any problems or questions please call [phone] For issues on weeknights after 5pm and weekends please call [phone] and ask for the Vascular Fellow automobile contract clerk. Vascular Surgery Contact Information: documented in this encounter Discharge Instructions * Patient Instructions* Jodie Teixeira APRN - 04/12/2021 9:59 AM EDT Patient Instructions You were admitted on 04/11/21 after having a coil embolization to reduce the aneurysm on your splenic artery. This went very well. Dr. Chaudhary will want you to be seen in approximately one month with aCTA scan of your abdomen prior. The scan has been ordered for May 12 here at [facility]. You will receive confirmation of this in the mail. If for some reason you don't receive this within a week or so please call our office as your followup is very important. Call your doctor if: Any fever, any drainage, redness of the access site in the right groin or if you have any unusual abdominal pain. Activity level: up as tolerated. Diet: resume your previous regular diet Driving: no restrictions if you drove prior to the procedure Shower/Bath: No restrictions Wound Care: Anticipate resolution over the next week. You may remove the dressing tomorrow. Please report any concerns for infection such as redness, warmth, drainage, tenderness. For any problems or questions please call [phone] For issues on weeknights after 5pm and weekends please call [phone] and ask for the Vascular Fellow automobile contract clerk. documented in this encounter Medications at Time [...] as of this encounter Progress Notes * Tiarra Krause MD - 04/11/2021 9:50 PM EDT Surgery Post Op Check Juan J Hardin is a 75 y.o. male status post mesenteric angio via R groin access S: No nausea/vomiting, chest pain, SOB, pain well controlled, offers no complaints Resting comfortably in bed. Had feeling of heart racing earlier, EKG w sinus arrhythmia. Feeling better now patient reports. O: Temp: [36.7 ??C (98 ??F)-37.2 ??C (99 ??F)] Heart Rate: [50-62] Resp: [10-21] BP: (131-174)/(73-102) SpO2: [91 %-97 %] Heart Rate from SpO2: [50 bpm-77 bpm] No intake/output data recorded. I/O this shift: In: - Out: 300 [Urine:300] UOP since OR: 300cc Physical Exam General: NAD, resting comfortably HEENT: PERRL, anicteric sclerae CVS: Regular rate Pulm: Breathing comfortably on RA Abd: soft, non tender, non distended Ext: RLE: No edema. Skin warm and pink. No tissue loss. Brisk capillary refill. Groi ndsg c/d/i with no evidence of hematoma. Neuro: CN 2-12 grossly intact, nonfocal, moving all extremities. Sensation intact in extremities bilaterally symmetric. Motor function intact in extremities, bilaterally symmetric. AP Juan J Hardin is a 75 y.o. male status post mesenteric angio via R groin access currently in stable condition and recovering well - pain well controlled - hemodynamically stable - UOP adequate Tiarra Krause MD Vascular Surgery 04/11/21 * Agueda Bowles RN - 04/11/2021 7:37 PM EDT Assumed care of pt around 1700. A&Ox4. R groin incision dressing CDI. Slightly hypertensive to 150s/80a. MD notified. Otherwise VSS on RA. Pt reported feeling funny having ectopic beats on hisheart. MD notified - no interventions at this time. Pt did report having abdominal fullness - pt voided and seemed to alleviate the fullness. No other concerns at this time. documented in this encounter Procedure Notes * Shira Mandujano MD - 04/11/2021 3:35 PM EDT Vascular Surgery Procedure Note Pre-procedure Dx: Splenic artery aneurysm Post-procedure Dx: Same Procedure: 1. Right femoral arterial access 2. Selective catheterization of celiac artery, splenic artery 3. Splenic artery angiogram 4. Coil embolization of splenic artery aneurysm and splenic artery Interlock coils: [id number], [id number], [id number], [id number], [id number], [id number], [id number], [id number], [id number], [id number], [id number], [id number], [id number], [id number] 5. Completion angiogram 6. Mynx closure Surgeons: Dmitry Chaudhary MD - Attending surgeon Shira Mandujano MD - Vascular resident Anesthesia: Conscious sedation, local 8 cc 1% lidocaine Medications: Fentanyl: 225 mcg Versed: 3.5 mg Antibiotics: 2 gm Ancef Fluoro Time: 25.3 min Contrast: 100 cc EBL: 10cc Indications for the Procedure: Juan J Hardin is a 75 year old male [...] with no evidence of stenosis or aneurysm. Patent celiac and SMA arteries. 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 - Intervention: Coil embolization of splenic artery (coils listed above) - Completion angiogram demonstrated: Multiple coils within splenic artery aneurysm and inflow vessel. Continued flow out of the aneurysm, however, diminished. - Closure device: Mynx Technical Procedure: The patient was correctly identified in the pre-procedure holding area. After a discussion of the risks and benefits, operative consent was obtained. The patient was brought to the angio suite and placed supine upon the angio table. The patient was prepped and draped in the usual sterile fashion. Atime-out was performed by the attending surgeon. Retrograde percutaneous access was obtained in theright common femoral artery via micropuncture technique under ultrasound and flouroscopic guidance after infiltration with local anesthetic. This was then up-sized to a 10 cm 5F sheath over a J-wire.The wire was advanced into the infra-renal aorta. A 5F omni-flush catheter was advanced into the infrarenal aorta over the wire. Diagnostic aortography was performed with the above findings. The sheath was exchanged for a 6F 10cm sheath. The wire and a 6F Tinajero Catheter were used to catheterize the splenic artery. An NTA catheter was inserted through the Tinajero catheter and splenic artery angiography was performed as described above. A glide wire was advanced with the catheter into the splenic artery. The catheter was advanced into the aneurysm, the wire was removed, and multiple coils were placed as listed above. For 018 coils, a renegade catheter within the existing catheter was used for delivery of the coils. Completion angiography was performed with the results as documented above. The sheath was removed with the assistance of a Mynx closure device and manual pressure was held over the puncture site for 12 minutes. Hemostasis was satisfactory. The puncture site was dressed witha dry gauze and tegaderm. Dr. Chaudhary, the attending surgeon, was scrubbed and present for the entire procedure. Due to the painful nature of the procedure, split doses of fentanyl and Versed were administered by the IR nurse during continuous monitoring of pulse, blood pressure and oxygen saturation. Closure method: Mynx Complications: None apparent Disposition: To recovery, flat for 2 hours Associated attestation - Dmitry Chaudhary MD - 04/20/2021 5:36 PM EDT Attending Attestation I was the attending physician supervising the resident/fellow in the above care and I was present with the resident/fellow for the entire procedure. I was present during the intraservice time as documented by the sedation RN. documented in this encounter Miscellaneous Notes * Plan of Care - Roxie Leiva RN - 04/12/2021 10:43 AM EDT Pt alert and oriented x4. Out of bed to chair, up with SBA. Denies pain. IV and tele D/C, AVS reviewed with pt with good understanding. Pt D/c to home via wheelchair at 1035 with all belongings. * Plan of Care - Dayanara Kern RN - 04/12/2021 2:40 AM EDT OUTCOME EVALUATION NOTE: OUTCOME SUMMARY: Patient is A+Ox4, VSS. No complaints of pain. Patient reported heart skipping a beat prior to shift around 1730 - paged, STAT EKG ordered. Patient started on telemetry, NSR with frequent PACs and occasional PVCs. R groin dressing C/D/I. Resting between care. PLAN MOVING FORWARD: Monitor VS and labs DC planning INDIVIDUALIZED FALL PREVENTION INTERVENTIONS: Patient-specific fall risk factors per assessment: [current deficits]: Assistance [level of assistance required for transfers and ambulation]: Stand by assist Supervision [direct monitoring required during toileting and ADLs]: Eyes on Surveillance [continuous indirect monitoring]: Purposeful hourly rounding, Masimo, telemetry, call hanna within reach. Patient-specific fall prevention interventions for sensory deficits provided, if applicable: [X] N/A CPG GOAL OUTCOME EVALUATION: documented in this encounter Plan of Treatment Upcoming Encounters Date Type Department Care Team (Late st Contact Info) Description 06/13/2024 3:00 PM EDT [place] [address] Laura Chavez MD [facility] [place] [address] 12/12/2024 3:30 PM EST [place] [id number] Laura Chavez MD [facility] [place] [address] documented as of this encounter Procedures Procedure Name Priority Date/Time Associated Diagnosis Comments HEMOGRAM Routine 04/12/2021 3:51 AM EDT DIFFERENTIAL, AUTOMATED Routine 04/12/2021 3:51 AM EDT HC CBC,PLT & AUTO DIFF Routine 04/12/2021 3:51 AM EDT BASIC METABOLIC PANEL (NON-FASTING) Routine 04/12/2021 3:51 AM EDT EKG 12-LEAD STAT 04/11/2021 7:41 PM EDT Splenic artery aneurysm documented in this encounter Results * CT Angiogram Abdomen & Pelvis w Contrast (Generic) (05/17/2021 1:55 PM EDT) Anatomical Region Laterality Modality Abdomen, Pelvis Computed Tomogra phy 05/17/2021 2:11 PM EDT Impressions 05/17/2021 2:29 PM EDT Post splenic artery aneurysm calcification since the previous study with resultant partial splenic infarction. Thank you for letting us participate in the care of this patient. ??If you are a health care provider and have any questions regarding this report, please contact the number below. ??For patients who have questions please contact the health resident care manager rn that requested your imaging first. ? Electronically signed by: Juan Ramirez MD, [facility] ([phone]), at 05/17/2021 2:29 PM Narrative 05/17/2021 2:29 PM EDT EXAMINATION: CT ANGIOGRAM ABDOMEN AND PELVIS W CONTRAST (GENERIC) CLINICAL HISTORY: s/p coil embolization of splenic artery aneurysm, post-procedure exam TECHNIQUE: Helical CT angiogram of the abdomen and pelvis was performed following the intravenous administration of contrast. Administered 102.0 ml of OMNIPAQUE 350.00 mg/ml. Maximum intensity projection (MIP) were reformatted. Multiplanar images were reviewed and 3-D images were generated on an independent workstation. COMPARISON: Chest CT from 02/08/2021 FINDINGS: VASCULAR FINDINGS Abdominal aorta: No stenosis or aneurysm. Celiac: Widely patent. Splenic artery: Post coil embolization of previously noted splenic artery aneurysm. No evidence of complication. Resultant partial infarction of the spleen. SMA: Widely patent. Right renal artery: Widely patent. Left renal artery: Widely patent. AFTAB: Widely patent. Right: Common iliac artery: Widely patent. External iliac artery: Widely patent Internal iliac artery: Widely patent Left: Common iliac artery: Widely patent. External iliac artery: Widely patent Internal iliac artery: Widely patent NON-VASCULAR FINDINGS Lower chest: Bibasilar, LEFT greater than the RIGHT focal atelectasis Liver: Normal. Bile ducts: Nondilated. Gallbladder: Not visualized Pancreas: Normal attenuation without ductal dilatation. Spleen: Partial infarction secondary to splenic artery aneurysm coil embolization. Adrenals: Normal. Kidneys: Normal. Urinary Bladder: Normal. Lymph Nodes: No enlarged lymph nodes. Bowel: Extensive descending colonic and sigmoid colonic diverticulosis without acute diverticulitis Peritoneum and mesentery: No ascites, free air, or loculated fluid collection. No mesenteric inflammation. Reproductive Organs: Enlarged prostate gland Abdominal Wall: No hernia Osseous structures: No suspicious findings. Procedure Note Juan Ramirez MD - 05/17/2021 EXAMINATION: CT ANGIOGRAM ABDOMEN AND PELVIS W CONTRAST (GENERIC) CLINICAL HISTORY: s/p coil embolization of splenic artery aneurysm, post-procedure exam TECHNIQUE: Helical CT angiogram of the abdomen and pelvis was performed following the intravenous administration of contrast. Administered 102.0ml of OMNIPAQUE 350.00 mg/ml. Maximum intensity projection (MIP) werereformatted. Multiplanar images were reviewed and 3-D images were generated on an[employer] workstation. COMPARISON: Chest CT from 02/08/2021 FINDINGS: VASCULAR FINDINGS Abdominal aorta: No stenosis or aneurysm. Celiac: Widely patent. Splenic artery: Post coil embolization of previously noted splenicartery aneurysm. No evidence of complication. Resultant partial infarction ofthe spleen. SMA: Widely patent. Right renal artery: Widely patent. Left renal artery: Widely patent. AFTAB: Widely patent. Right: Common iliac artery: Widely patent. External iliac artery: Widely patent Internal iliac artery: Widely patent Left: Common iliac artery: Widely patent. External iliac artery: Widely patent Internal iliac artery: Widely patent NON-VASCULAR FINDINGS Lower chest: Bibasilar, LEFT greater than the RIGHT focal atelectasis Liver: Normal. Bile ducts: Nondilated. Gallbladder: Not visualized Pancreas: Normal attenuation without ductal dilatation. Spleen: Partial infarction secondary to splenic artery aneurysm coil embolization. Adrenals: Normal. Kidneys: Normal. Urinary Bladder: Normal. Lymph Nodes: No enlarged lymph nodes. Bowel: Extensive descending colonic and sigmoid colonic diverticulosiswithout acute diverticulitis Peritoneum and mesentery: No ascites, free air, or loculated fluidcollection. No mesenteric inflammation. Reproductive Organs: Enlarged prostate gland Abdominal Wall: No hernia Osseous structures: No suspicious findings. IMPRESSION Post splenic artery aneurysm calcification since the previous study with resultant partial splenic infarction. Thank you for letting us participate in the care of this patient. If youare a health care provider and have any questions regarding this report,please contact the number below. For patients who have questions please contactthe health resident care manager rn that requested your imaging first. Dmitry Chaudhary MD IMG CT ORDERABLES * (ABNORMAL) Differential, Automated (04/12/2021 3:51 AM EDT) Neutrophils % 82.6 % [facility] Neutr Abs (ANC) 11.04(H) 1.70 - 6.10 x10(3)/[facility] Lymphocytes % 10.7 % [facility] Lymphocytes Abs 1.4 0.9 - 3.2 x10(3)/[facility] Monocytes % 6.3 % [facility] Monocyte Abs 0.8 0.3 - 0.9 x10(3)/[facility] Eosinophils % 0.1 % [facility] Eosinophils Abs 0.0 0.0 - 0.4 x10(3)/[facility] Basophils % 0.1 % [facility] Basophils Abs 0.0 0.0 - 0.1 x10(3)/[facility] Immature Gran % 0.20 % [facility] Comment: Immature granulocytes(IG's)percentage and absolute count will include metamyelocytes, myelocytes, and promyelocytes. Blood smears from CBCs yielding IG's will be scanned manually for concordance. If this scan disagrees with the automated IG or if promyelocytes are noted, a manual differential will be performed. Pearl Gran Abs 0.03 0.00 - 0.04 x10(3)/[facility] Blood 04/12/2021 3:51 AM EDT 04/12/2021 4:16 AM EDT Narrative Resulting Agency Comment Spec In Lab Shira Mandujano MD HEMATOLOGY ORDERABL ES Performing Organization Address City/[facility]/ZIP Co de Phone Number [facility] [place] [address] * (ABNORMAL) Hemogram (04/12/2021 3:51 AM EDT) WBC 13.4(H) 4.0 - 9.5 x10(3)/[facility] LABORATORY RBC 5.13 4.58 - 5.54 x10(6)/[facility]ATORY Hemoglobin 15.6 13.7 - 16.5 gm/dL [facility] Hematocrit 44.9 40.5 - 48.5 % [facility] MCV 87.5 82.9 - 93.1 [facility] MCH 30.4 27.5 - 32.1 pg [facility] MCHC 34.7 32.0 - 35.7 gm/dL [facility] Platelets 169 145 - 357 x10(3)/[facility] LABORATORY RDWSD 42.0 36.0 - 45.0 [facility] RDWCV 13.2 11.4 - 13.8 % [facility] MPV 11.8 7.6 - 12.9 [facility] nRBC % Auto 0.0 % [facility] nRBC Abs Auto 0.000 0.000 - 0.000 x10(3)/[facility] Blood 04/12/2021 3:51 AM EDT 04/12/2021 4:16 AM EDT Narrative Resulting Agency Comment Spec In Lab Shira Mandujano MD HEMATOLOGY ORDERABL ES [facility] [place] [address] * (ABNORMAL) Basic Metabolic Panel (non-fasting) (04/12/2021 3:51 AM EDT) Pathologist [facility] Glucose Lvl 103 65 - 199 mg/dL [facility] Comment:Diabetes: >=200 mg/d L plus symptoms BUN 22(H) 10 - 20 mg/dL [facility] Creatinine 0.82 0.80 - 1.50 mg/dL [facility] Sodium 138 135 - 145 mmol/L [facility] Potassium 4.0 3.5 - 5.0 mmol/L [facility] Comment: Please note: ??Patients with WBC >100,000 may have falsely elevated Potassium levels. ??For accurate Potassium quantification in these patients send serum separator tube (gold top) for subsequent determinations. ??Contact the Clinical Chemistry Laboratory if there are any questions. Chloride 106 98 - 107 mmol/L [facility] CO2 24 22 - 31 mmol/L [facility] Anion Gap 8 5 - 15 mmol/L [facility] Calcium 8.9 8.5 - 10.5 mg/dL [facility] Estimated GFR 87 >=60 mL/min/1. 73 m?? [facility] Comment: This patient? s estimated glomerular filtration rate (eGFR) is between 87 mL/min/1.73 m2 (patients with less muscle mass per kg body weight) and 100 mL/min/1.73 m2 (patients with more muscle mass [...] and symptoms in addition to eGFR. Blood 04/12/2021 3:51 AM EDT 04/12/2021 4:16 AM EDT Narrative Resulting Agency Comment Spec In Lab Dmitry Chaudhary MD CHEMISTRY ORDERABLES [facility] [place] [address] * EKG 12 Lead (04/11/2021 7:41 PM EDT) Ventricular rate 67 BPM MUSE SYSTEM Atrial Rate 67 BPM MUSE SYSTEM P-R Interval 184 ms MUSE SYSTEM QRS Duration 84 ms MUSE SYSTEM Q-T Interval 440 ms MUSE SYSTEM QTC Calculated (Bezet) 464 ms MUSE SYSTEM Calculated P [place] 68 degrees MUSE SYSTEM Calculated R [place] -20 degrees MUSE SYSTEM Calculated T [place] 76 degrees MUSE SYSTEM INTERPRETATION Normal sinus rhythm with sinus arrhythmia Nonspecific ST abnormality No previous ECGs available Confirmed by MD Hanson Daniel ([id number]) on 04/12/2021 4:05:13 PM MUSE SYSTEM 04/11/2021 7:41 PM EDT 04/12/2021 4:05 PM EDT Dmitry Chaudhary MD ECG ORDERABLES MUSE SYSTEM documented in this encounter Visit Diagnoses Not on filedocumented in this encounter Admitting Diagnoses Diagnosis 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 documented in this encounter Administered Medications Inactive Administered Medications - up to 3 most recent administrations Medication Order MAR Action Action Date Dose Rate Site aspirin tablet 325 mg 325 mg, Oral, DAILY, First dose on Jessika 04/11/21 at 1745, Until Discontinued, Routine Given 04/12/2021 9:11 AM EDT 325 mg Given 04/11/2021 5:26 PM EDT 325 mg levothyroxine (Synthroid) tablet 50 mcg 50 mcg, Oral, DAILY, First dose on Jessika 04/11/21 at 1745, Until Discontinued, Routine Given 04/12/2021 9:11 AM EDT 50 mcg Given 04/11/2021 5:26 PM EDT 50 mcg pyridostigmine (Mestinon) tablet 30 mg 30 mg, Oral, EVERY 8 HOURS SCHEDULED, First dose on Jessika 04/11/21 at 1745, Until Discontinued, Routine Given 04/12/2021 9:11 AM EDT 30 mg Given 04/12/2021 1:00 AM EDT 30 mg Given 04/11/2021 5:26 PM EDT 30 mg sodium chloride 0.9 % (flush) flush 5 mL 5 mL, Intravenous, 2 TIMES DAILY, First dose on Jessika 04/11/21 at 2100, Until Discontinued, Routine Given 04/12/2021 9:00 AM EDT 5 mLs Given 04/11/2021 8:54 PM EDT 5 mLs tamsulosin (Flomax) capsule 0.4 mg 0.4 mg, Oral, DAILY, First dose on Jessika 04/11/21 at 1745, Until Discontinued, DO NOT CRUSH OR OPEN, Routine Given 04/11/2021 5:26 PM EDT 0.4 mg documented in this encounter Active and Recently Administered Medications Times are shown in EDT. Scheduled Medication Order 04/10/2021 04/11/2021 04/12/2021 aspirin tablet 325 mg 325 mg, Oral, DAILY, First dose on Jessika 04/11/21 at 1745, Until Discontinued, Routine 1726 (Given - Provider: Agueda Bowles RN) 0911 (Given - Provider: Roxie Leiva RN) levothyroxine (Synthroid) tablet 50 mcg 50 mcg, Oral, DAILY, First dose on Jessika 04/11/21 at 1745, Until Discontinued, Routine 172 (Given - Provider: Agueda Bowles RN) 0911 (Given - Provider: Roxie Leiva, DEANDRE) pyridostigmine (Mestinon) tablet 30 mg 30 mg, Oral, EVERY 8 HOURS SCHEDULED, First dose on Jessika 04/11/21 at 1745, Until Discontinued, Routine 172 (Given - Provider: Agueda Bowles RN) 0100 (Given - Provider: Dayanara Kern, DEANDRE)0911 (Given - Provider: Roxie Leiva, DEANDRE) sodium chloride 0.9 % (flush) flush 5 mL 5 mL, Intravenous, 2 TIMES DAILY, First dose on Jessika 04/11/21 at 2100, Until Discontinued, Routine 2053 (Given - Provider: Dayanara Kern, DEANDRE) 0900 (Given - Provider: Roxie Leiva, DEANDRE) tamsulosin (Flomax) capsule 0.4 mg 0.4 mg, Oral, DAILY, First dose on Jessika 04/11/21 at 1745, Until Discontinued, DO NOT CRUSH OR OPEN, Routine 1726 (Given - Provider: Agueda Bowles RN) 0900 (Not Given - Provider: Roxie Leiva RN - Reason: Patient/family refused) PRN Medication Order 04/10/2021 04/11/2021 04/12/2021 lidocaine (Xylocaine) 1% (10 mg/mL) injection 3 mg 3 mg (0.3 mL), Subcutaneous, ONCE PRN, 1 dose, Starting on Jessika 04/11/21 at 1659, Until Thu04/12/21 at 1252, for discomfort with PIV insertion, Routine sodium chloride 0.9 % (flush) flush 5-20 mL 5-20 mL, Intravenous, EVERY 1 MIN PRN, Starting on Jessika 04/11/21 at 1659, Until Thu04/12/21 at 1252, flush, Flush pertains to all indwelling lines. Flush per protocol found in the job aid using the link provided on this medication record., Routine documented in this encounter Care Teams Farm Machinery Engine Mechanic Relationship Specialty Start Date End Date González Luis DO [address] [place] [address] PCP - General Family Medicine 04/23/17 documented as of this encounter
--- OUTSIDE RECORDS SUMMARY | 2024-05-20 02:49 | XMS_ITS | Encounter Summary ---
Author Organization [facility] Address [facility] [place] [address] Care Team Providers Care Software Sales Executive Name Role Phone González Luis DO Primary Care Provider [phone] Encounter Details Date Type Department Care Team (Late st Contact Info) Description 05/17/2021 2:30 PM EDT Office Visit [place] [address] Dmitry Chaudhary MD [facility] [place] [address] Splenic artery aneurysm Social History Tobacco Use [...] Sign Reading Time Taken Comments Blood Pressure 158/84 05/17/2021 3:53 PM EDT Pulse 55 05/17/2021 3:53 PM EDT Temperature - - Respiratory Rate - - Oxygen Saturation - - Inhaled Oxygen Concentration - - Weight 86.2 kg (190 lb) 05/17/2021 3:53 PM EDT r eported Height 180.3 cm (5' 11) 05/17/2021 3:53 PM EDT Body Mass Index 26.5 05/17/2021 3:53 PM EDT documented in this encounter Progress Notes * Dmitry Chaudhary MD - 05/17/2021 2:30 PM EDT OUTPATIENT VASCULAR SURGERY CONSULTATION Reason [...] partial splenic infarction post procedure. States he felt generally unwell and weak with some abdominal pain. Now doing better. reports that he quit smoking about 53 years ago. His smoking use included cigarettes. He has never used smokeless tobacco. Patient Active Problem List Diagnosis Code ??? Gait abnormality R26.9 ??? 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 Splenic artery aneurysm I72.8 [...] for Thrombosis, Bleeding Disorders Physical Exam: BP 158/84 (BP Location (NBP): Left arm, Patient Position: Sitting, BP Cuff Sizes: Adult (25-34 cm)) Pulse 55 Ht 180.3 cm (5' 11) Wt 86.2 kg (190 lb) Comment: reported BMI 26.50 kg/m?? General - NAD, appears stated age Neuro - Alert and Oriented, Motor Sensory grossly intact Psych- alert oriented X3 , Extremities - Warm, pink, no edema, brisk capillary refill Vascular Exam: R L Carotid 2/2 bruit () 2/2 bruit () Radial 2/2 2/2 Femoral Popliteal DP PT Labs: No results found for this or any previous visit (from the past 72 hour(s)). Studies: IMPRESSION ?? Post splenic artery aneurysm [...] need pneumococcal vaccines. RTC 6 months with duplex of splenic aneurysm repair. 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
--- OUTSIDE RECORDS SUMMARY | 2024-05-20 02:49 | XMS_ITS | Encounter Summary ---
Author Organization [facility] Address [facility] [place] [address] Care Team Providers Care Motor Coach Driver Name Role Phone González Luis DO Primary Care Provider Reason for Visit * Reason Onset Date Comments Appointment 03/02/2020 Encounter Details Date Type Department Care Team (Late st Contact Info) Description 03/02/2020 [place]phone [place] [address] Laura Chavez MD [facility] [place] [address] Appointment Social History Tobacco Use Types Packs/Day [...] encounter Miscellaneous Notes * Telephone Encounter - Debi Arias - 03/02/2020 3:53 PM EDT The patient returned my phone call and is rescheduled for April for an in clinic follow up with Dr. Chavez. * Telephone Encounter - Debi Arias - 03/02/2020 3:32 PM EDT I have LMOAM x1 [facility] to an in clinic follow up in April. documented in this encounter Plan of Treatment Upcoming Encounters Date Type Department Care Team (Late st Contact Info) Description 06/13/2024 3:00 PM EDT [place] [address] Laura Chavez MD [facility] [place] [address] 12/12/2024 3:30 PM EST Office [place] [address] Laura Chavez MD [facility] [place] [address] documented as of this encounter Visit Diagnoses Not on filedocumented in this encounter Care Teams Motor Coach Driver Relationship Specialty Start Date End Date González Luis DO [address] [place] [address] [address] [place] [address] PCP - General Family Medicine 04/23/17 documented as of this encounter
--- OUTSIDE RECORDS SUMMARY | 2024-05-20 02:49 | XMS_ITS | Encounter Summary ---
Author Organization [facility] [place] [address] Care Team Providers Care Stripper Shovel Operator Name Role Phone González Luis DO Primary Care Provider Reason for Referral * Diagnostic Test (Routine) - Closed Specialty Diagnoses / Procedures Referred By Contac t Referred To Contact Radiology Diagnoses Splenic artery aneurysm Procedures CT Angiogram Abdomen & Pelvis w Contrast (Generic) Tiarra Sheffield PA [facility] [address] [facility] [place] [address] Referral ID Status Reason Start Date Expiration Date V isits Requested Visits Authorized [id number] Closed Specialty Service Requested 04/12/2021 10/12/2022 1 1 Reason for Visit * Diagnostic Test (Routine) - Closed Specialty Diagnoses / Procedures Referred By Contac t Referred To Contact Radiology Diagnoses Splenic artery aneurysm Procedures CT Angiogram Abdomen & Pelvis w Contrast (Generic) Tiarra Sheffield PA [facility] [address] [facility] [place] [address] Referral ID Status Reason Start Date Expiration Date V isits Requested Visits Authorized [id number] Closed Specialty Service Requested 04/12/2021 10/12/2022 1 1 Encounter Details Date Type Department Care Team (Latest Contact Info) Description 05/17/2021 1:24 PM EDT - 05/17/2021 11:59 PM EDT Hospital Encounter CT Scan at [facility] [place] [address] Dmitry Chaudhary MD [facility] [place] [address] Splenic artery aneurysm Discharge Disposition: Home Social [...] 3:00 PM EDT [place] [address] Laura Chavez MD [facility] [place] [address] 12/12/2024 3:30 PM EST [place] [phone] Laura Chavez MD [facility] [place] [address] documented as of this encounter Procedures Procedure Name Priority Date/Time Associated Diagnosis Comments CT ANGIOGRAM ABDOMEN AND PELVIS W CONTRAST Routine 05/17/2021 1:55 PM EDT Splenic artery aneurysm documented in [...] who have questions please contact the health care analyst that requested your imaging first. ? Electronically signed by: Juan Ramirez MD, [facility] ([phone]), at 05/17/2021 2:29 PM Narrative 05/17/2021 2:29 [...] reviewed and 3-D images were generated on [employer] workstation. COMPARISON: Chest CT from 02/08/2021 FINDINGS: [...] patients who have questions please contactthe health care analyst that requested your imaging first. 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 documented in this encounter Administered Medications Inactive Administered Medications - up to 3 most recent administrations Medication Order MAR Action Action Date Dose Rate Site iohexoL (Omnipaque) (350 mg/mL) injection solution 0-200 mL 0-200 mL, Intravenous, ONCE PRN, 1 dose, Starting on Thu05/17/21 at 1349, Until Thu05/17/21 at 1349, Per Protocol, Warning Vesicant/Irritant Medication , Radiology Contrast, Routine Given 05/17/2021 1:49 PM EDT 102 mLs documented in this encounter Care Teams Stripper Shovel Operator Relationship Specialty Start Date End Date González Luis DO [address] [facility] [place] [address] PCP - General Family Medicine 04/23/17 documented as of this encounter
--- OUTSIDE RECORDS SUMMARY | 2024-05-20 02:49 | XMS_ITS | Encounter Summary ---
Author Organization [facility] Address [facility] [place] [address] Care Team Providers Care Spline Rolling Machine Job Setter Name Role Phone González Luis DO Primary Care Provider [phone] Reason for Visit * Reason Onset Date Comments Labs Only 02/08/2021 Encounter Details Date Type Department Care Team (Late st Contact Info) Description 02/08/2021 Telephone [place] [address] Laura Chavez MD [facility] [place] [address] Labs Only Social History Tobacco Use Types Packs/Day Years [...] encounter Miscellaneous Notes * Telephone Encounter - Shaista Nina RN - 02/08/2021 9:04 AM EDT Placed under clinic attending, Dr Orellana. * Telephone Encounter - Carrington-Carina Heard - 02/08/2021 8:43 AM EDT Call Center / Shell Freezing Machine Operator Message - Lab/Test being requested to be done Provider patient sees in Clinic:Scott Caller: Brit-CT If not Pt / Relation to pt: Call back Number: [phone] OK to leave message: yes Reason for call: request for lab or test orders ??? What labs or tests are being requested: creatinine ??? Where does the caller request the order be sent: Any additional information for the nurse/provider: Pt is scheduled for CT today and Brit states he needs labs prior. This agent was unable to reach a nurse, sent HP message. Disposition of call ( choose one and remove the other) ??? Message sent to clinic nurse: mike documented in this encounter Plan of Treatment Upcoming Encounters Date Type Department Care Team (Late st Contact Info) Description 06/13/2024 3:00 PM EDT Office [place] [address] Laura Chavez MD [facility] [place] [address] 12/12/2024 3:30 PM EST Office [place] [phone] Laura Chavez MD [facility] [place] [address] documented as of this encounter Results * Creatinine (02/08/2021 3:47 PM EDT) Creatinine 0.87 0.80 - 1.50 mg/dL [facility] Estimated GFR 84 >=60 mL/min/1. 73 m?? [facility] Comment: This patient? s estimated [...] Lab Laura Chavez MD [place] [address] documented in this encounter Visit Diagnoses Diagnosis Right leg weakness Other musculoskeletal symptoms referable to limbs documented in this encounter Care Teams Spline Rolling Machine Job Setter Relationship Specialty Start Date End Date González Luis DO [address] [place] [address] [address] [place] [address] PCP - General Family Medicine 04/23/17 documented as of this encounter
--- OUTSIDE RECORDS SUMMARY | 2024-05-20 02:49 | XMS_ITS | Encounter Summary ---
Author Organization [facility] [place] [address] Care Team Providers Care Metals Sales Representative Name Role Phone González Luis DO Primary Care Provider Reason for Visit * Auth/Cert Specialty Diagnoses / Procedures Referred By Contac t Referred To Contact Diagnoses Splenic artery aneurysm SPLENIC ARTERY ANEURYSM SPLENIC ARTERY ANEURYSM POST OP [place] Procedures ARTERIOGRAMS Referral ID Status Reason Start Date Expiration Date Visits Re quested Visits Authorized [id number] 1 1 Encounter Details Date Type Department Care Team (Latest Contact Info) Description 04/11/2021 11:10 AM EDT Laboratory Appointment Lab [address] [place] [address] Splenic artery aneurysm Social History Tobacco Use [...] 3:00 PM EDT [place] [phone] Laura Chavez MD [facility] [place] [address] 12/12/2024 3:30 PM EST [place] [address] Laura Chavez MD [facility] [place] [address] documented as of this encounter Procedures Procedure Name Priority Date/Time Associated Diagnosis Comments HC VENIPUNCTURE STAT 04/11/2021 11:33 AM EDT Splenic artery aneurysm documented in this encounter Results * Creatinine (04/11/2021 11:33 AM EDT) Creatinine 0.90 0.80 - 1.50 mg/dL [facility] Estimated GFR 83 >=60 mL/min/1. 73 m?? [facility] Comment: This patient? s estimated glomerular filtration rate (eGFR) is between 83 mL/min/1.73 m2 (patients with less muscle mass per kg body weight) and 96 mL/min/1.73 m2 (patients with more muscle mass [...] and symptoms in addition to eGFR. 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
--- OUTSIDE RECORDS SUMMARY | 2024-05-20 02:49 | XMS_ITS | Encounter Summary ---
Author Organization [facility] Address [facility] [place] [address] Care Team Providers Care Quantometer Operator Name Role Phone González Luis DO Primary Care Provider Encounter Details Date Type Department Care Team (Late st Contact Info) Description 06/29/2018 Orders [place] [phone] Kathy Lewis Social History Tobacco Use Types Packs/Day Years [...] 3:00 PM EDT [place] [phone] Laura Chavez MD [facility] [place] [address] 12/12/2024 3:30 PM EST [place] [phone] Laura Chavez MD [facility] [place] [address] documented as of this encounter Visit Diagnoses Not on filedocumented in this encounter Care Teams Quantometer Operator Relationship Specialty Start Date End Date González Luis DO [address] [place] [address] PCP - General Family Medicine 04/23/17 documented as of this encounter
--- OUTSIDE RECORDS SUMMARY | 2024-05-20 02:49 | XMS_ITS | Encounter Summary ---
Author Organization [facility] Address [facility] [place] [address] Care Team Providers Care Identity Management Consultant Name Role Phone González Luis DO Primary Care Provider Encounter Details Date Type Department Care Team (Late st Contact Info) Description 12/28/2018 11:30 AM EDT Office [place] [address] Laura Chavez MD [facility] [place] [address] Neuropathy Social History Tobacco Use Types Packs/Day Years [...] Sign Reading Time Taken Comments Blood Pressure 138/74 12/28/2018 11:16 AM EDT Pulse 63 12/28/2018 11:16 AM EDT Temperature - - Respiratory Rate - - Oxygen Saturation - - Inhaled Oxygen Concentration - - Weight 99.3 kg (219 lb) 12/28/2018 11:16 AM EDT Height 182.9 cm (6') 12/28/2018 11:16 AM EDT rep orted Body Mass Index 29.7 12/28/2018 11:16 AM EDT documented in this encounter Progress Notes * Laura Chavez MD - 12/28/2018 11:30 AM EDT Subjective: Juan J Hardin is a 73 y.o. male referred by Dr. Luis in follow up of possible neuropathy. Referral request: evaluate for peripheral neuropathy Since last visit: Doing reasonably well. Working with a computer technology trainer: core work, balance, power. With the power work he has felt limitations withhis muscle work He notes some difficulties with sequencing movements - this is the sensation of ataxia that he describes. It is intermittent to a certain extent- that is some days better than others. It is mildly asymmetric but present bilaterally. He is better coordinated on the left than the right. His work with the computer technology trainer has translated into more energy and less fatigue. What he described as clonus was weakness. Cramping: unchanged; in his hands and feet; occasionally in his quads, gastroc and tongue when he yawns. This is less severe. Paresthesias: a sensation of pulling his toes off with red hot pliers; focal lancinating pain that is burning and intense (heat and stabbing); 1/day various: secs-a minute. Not bothersome enough for medication. Sensation alteration is variable, going up and down. He is working with the intrinsic muscles of his toes and he does this daily. MRI brain (08/2017): IMPRESSION No evidence recent [...] any autonomic symptoms. Assessment from last visit: In general he reports that he is feeling progression of his neuropathic symptoms. He notes this in a change in gait and balance as well as a feeling of stiffness in his legs and feet. He endorses a lot of fatigue which is at times generalized. He also endorses somewhat of a warmup phenomenon with walking or sustained activity. He does not endorse a lot of autonomic symptoms although there are some that are consistent with this. Because of fatigue and warmup phenomenon, I think it would be appropriate to screen for pre-and postsynaptic neuromuscular junction antibodies and have suggested this today. He does have cervical stenosis on MRI completed in June 2017. However, his exam is not markedly myelopathic and this has not changed from his previous visit. We talked about continuing to monitor this both with clinical exam and possibly repeat MRI scan in approximately the fall of this year.MRI cervical in June or earlier if his exam changes. Juan J Hardin is a 72 y.o. 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 Although DCTN1 has been associated with neurodegenerative process including those affecting the motor neurons, motor neuronopathy is ess likely due to preservation of muscles bulk, symmetry of exam, and presence of an UMN sins on the side less affecting by LMN findings. Further there issignificant allelic heterogeneity in DCTN1 effects. I am most likely to attribute his neuropathy tothe effect of the AARS gene rather than DCTN1 although an effect of DCTN1 leading to motor neuropathy is difficult to rule out. I discussed this with him - he remains concerned about the presence of a Babinski response on the left. It think it is not unreasonable to image the rest of his neuraxis to explore other potential etiologies of the UMN sign. We also discussed management principles in the setting of hereditary neuropathy. Predominantly thisinvolves the use of PT and moderate exercise, avoidance of injury or falls, and avoidance of acquired etiologies as would be seen in the setting of metabolic disturbances. We also discussed implications for his family. He will make this known to them - I stressed the issues surrounding pre-symptomatic genetic testing. He voiced good understanding of these issues - he will make his family aware of the mutation so they can be tested if it is their wish when/if they develop symptoms of neuropathy. I would like to continue to follow him for changes in his exam. It would not be imprudent to repeat this electrodiagnostic testing in the setting of progression of weakness out of proportion to what is suspected in a hereditary neuropathy (generally slow), development ofbulbar symptoms or weight loss. If these symptoms do not occur, as expected, it would be reasonableto repeat testing in ~1 year in order to gauge for changes in electrophysiologic character. Outside reports reviewed: lab reports and office notes. Patient's medications, allergies, past medical, surgical, social and family histories were reviewedand updated as appropriate. Review of Systems Pertinent items are noted in HPI. Objective: Physical Exam: BP 138/74 (BP Location (NBP): Left arm, Patient Position: Sitting, BP Cuff Sizes: Adult (25-34 cm)) Pulse 63 Ht 182.9 cm (6') Comment: reported Wt 99.3 kg (219 lb) BMI 29.70 kg/m?? Appearance: The patient is a healthy-appearing male who appears of stated age and comes to his visit unaccompanied. he appears well developed and well nourished and requires no assistive devices for walking. Extremities: no edema, feet are high arched Mental status: The patient is alert and calm with MS intact to detailed questioning regarding his history. his speech and language is intact to normal conversation and examination commands; speech fluent. his attention and concentration allow for a full evaluation without evidence for deficit. Cranial nerves: Facial movements are normal. No evidence of dysphonia or hoarseness of voice. Motor: NE NF SA EE EF WE WF FA FE Syd HG Right nt nt 5 5 5 5 5 4+ 5- 4+ 5 Left nt nt 5 5 5 5 5 4+ 5- 5- 5 HF HE KE KF HAB HADD ADF APF I ToeF E Right 5 nt 5 5 nt nt 5 5 5 4 NRt 5- Left 5 nt 5 5 nt nt 5 5 5 4 NRt 5 There is no atrophy or fasciculations. There is no myoclonus, tremor, change in tone, or drift. Sensory: Vibration: Ltoe 0 Rtoe 0 NRT LMM 0 RMM 0 Lknee 7 Rknee 6 LDIP2 8 RDIP2 8 LDIP5 nt RDIP5 nt Pin: reduced over the plantar aspect of the feet bilaterally extending onto the toes and the medialaspect of the heel - this extends farther up the heel than would be expected for dermatome of medial calcaneal branch of tibial nerve. There is associated length dependent pattern of sensory alteration. There is some asymmetry in the distribution of sensation around the legs that suggest L4 distribution on the left and L5 on the right; however this is not numbness. NOT REPEATED Coordination: No cerebellar ataxia. Gait and station: Normal stance; normal gait; able to rise from a seated position without the use of his arms. Tendon reflexes: biceps triceps BR patellar AJ [...] Clinical and radiologic correlation is recommended. Assessment: Juan J Hardin is a pleasant 73 y.o. 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 He is doing well with improvement in some of his clinical parameters with exercise directed by a computer technology trainer. His clinical exam dos not show any evidence of increasing myelopathic findings and is in fact stable from last visit. That being said he has detected some progression of especially his neuropathic symptoms because of this I have recommended some screening studies for reversible acquired etiologies that could be difficult to flower buncher or picker in the setting of neuropathy. He has had some neuropathic pain. This is not severe enough that he would want to consider neuropathic pain medications. Orders Placed This Encounter Procedures ??? Vitamin B12 ??? Protein Electrophoresis, serum ??? Basic Metabolic Panel (non-fasting) ??? Hemogram Follow-up 6-12 months. CAMILLE Horta I spent 40 minutes of face-face time with the patient, with 21 minutes spent in counseling and coordination of care, excluding the time spent in performing electrodiagnostic studies. documented in this encounter Plan of Treatment Upcoming Encounters Date Type Department Care Team (Late st Contact Info) Description 06/13/2024 3:00 PM EDT Office [place] [address] Laura Chavez MD [facility] [place] [address] 12/12/2024 3:30 PM EST Office [place] [address] Laura Chavez MD [facility] [place] [address] documented as of this encounter Procedures Procedure Name Priority Date/Time Associated Diagnosis Comments HEMOGRAM Routine 12/28/2018 1:01 PM EDT Neuropathy PROTEIN ELECTROPHORESIS, SERUM Routine 12/28/2018 1:01 PM EDT Neuropathy VITAMIN B12 Routine 12/28/2018 1:01 PM EDT Neuropathy BASIC METABOLIC PANEL (NON-FASTING) Routine 12/28/2018 1:01 PM EDT Neuropathy documented in this encounter Results * Hemogram (12/28/2018 1:01 PM EDT) WBC 6.0 4.0 - 9.5 x10(3)/[facility] LABORATORY RBC 5.17 4.58 - 5.54 x10(6)/[facility]ATORY Hemoglobin 15.7 13.7 - 16.5 gm/dL [facility] Hematocrit 46.4 40.5 - 48.5 % [facility] MCV 89.7 82.9 - 93.1 fL [facility] MCH 30.4 27.5 - 32.1 pg [facility] MCHC 33.8 32.0 - 35.7 gm/dL [facility] Platelets 151 145 - 357 x10(3)/[facility] LABORATORY RDWSD 43.8 36.0 - 45.0 [facility] RDWCV 13.2 11.4 - 13.8 % [facility] MPV 11.6 7.6 - 12.9 fL [facility] nRBC % Auto 0.0 % [facility] nRBC Abs Auto 0.000 0.000 - 0.000 x10(3)/mcL [facility] Blood specimen (specimen) 12/28/2018 1:01 PM EDT 12/28/2018 1:15 PM EDT Narrative Resulting Agency Comment Spec In Lab Laura Chavez MD HEMATOLOGY ORDERABL ES [facility] [place] [address] * Basic Metabolic Panel (non-fasting) (12/28/2018 1:01 PM EDT) Glucose Lvl 96 65 - 199 mg/dL [facility] Comment:Diabetes: >=200 mg/d L plus symptoms BUN 19 10 - 20 mg/dL [facility] Creatinine 0.90 0.80 - 1.50 mg/dL [facility] Sodium 141 135 - 145 mmol/L [facility] Potassium 4.1 3.5 - 5.0 mmol/L [facility] Comment: Please note: ??Patients with WBC >100,000 may have falsely elevated Potassium levels. ??For accurate Potassium quantification in these patients send serum separator tube (gold top) for subsequent determinations. ??Contact the Clinical Chemistry Laboratory if there are any questions. Chloride 106 98 - 107 mmol/L [facility] CO2 26 22 - 31 mmol/L [facility] Anion Gap 9 5 - 15 mmol/L [facility] Calcium 9.5 8.5 - 10.5 mg/dL [facility] Estimated GFR 84 >=60 mL/min/1. 73 m?? [facility] Comment: The eGFR was calculated using the CKD-EPI equation. As with all creatinine based estimates of kidney function, eGFR values calculated with the CKD-EPI equation are not accurate in patients with acute kidney failure, extremes of body mass or the acutely ill. [email or web address] eGFR 98 >=60 mL/min/1. 73 m?? [facility] Comment: The eGFR was calculated using the CKD-EPI equation. As with all creatinine based estimates of kidney function, eGFR values calculated with the CKD-EPI equation are not accurate in patients with acute kidney failure, extremes of body mass or the acutely ill. [email or web address] Blood specimen (specimen) 12/28/2018 1:01 PM EDT 12/28/2018 1:15 PM EDT Narrative Resulting Agency Comment Spec In Lab Laura Chavez MD CHEMISTRY ORDERABLE S Performing Organization Address [facility] Co de Phone Number [facility] [place] [address] * Protein Electrophoresis, serum (12/28/2018 1:01 PM EDT) Total Prot Elec 6.4 6.1 - 8.0 gm/dL [facility] Albumin Elect 4.28 3.60 - 6.00 gm/dL [facility] Alpha1-Globul in 0.17 0.10 - 0.30 gm/dL [facility] Alpha2-Globul in 0.58 0.40 - 0.90 gm/dL [facility] Beta Globulin 0.65 0.50 - 1.00 gm/dL [facility] Gamma Globulin 0.72 0.50 - 1.30 gm/dL [facility] M1 Band None Detected None Detected [facility] Blood specimen (specimen) 12/28/2018 1:01 PM EDT 12/28/2018 1:15 PM EDT Narrative Resulting Agency Comment Spec In Lab Laura Chavez MD CHEMISTRY ORDERABLE S Performing Organization Address [facility] Co de Phone Number [facility] [place] [address] * Vitamin B12 (12/28/2018 1:01 PM EDT) Vitamin B-12 388 232 - 1,245 pg/mL [facility] Blood specimen (specimen) 12/28/2018 1:01 PM EDT 12/28/2018 1:15 PM EDT Narrative Resulting Agency Comment Spec In Lab Laura Chavez MD CHEMISTRY ORDERABLE S [facility] [place] [address] documented in this encounter Visit Diagnoses Diagnosis Neuropathy Mononeuritis of unspecified site documented in this encounter Care Teams Identity Management Consultant Relationship Specialty Start Date End Date González Luis DO [address] [place] [address] PCP - General Family Medicine 04/23/17 documented as of this encounter
--- OUTSIDE RECORDS SUMMARY | 2024-05-20 02:49 | XMS_ITS | Encounter Summary ---
Author Organization [facility] [address] Care Team Providers Care Care Tech Name Role Phone González Luis DO Primary Care Provider [phone] Reason for Visit * Consultation (Urgent) - Closed Specialty Diagnoses / Procedures Referred By Radha macdonald Referred To Contact Vascular Surgery Diagnoses Splenic artery aneurysm Laura Chavez MD [facility] [place] [address] [facility] [address] [place] [address] Referral ID Status Reason Start Date Expiration Date V isits Requested Visits Authorized [id number] Closed Consult, Test & Treat 02/12/2021 02/12/2022 2 2 Encounter Details Date Type Department Care Team (Late st Contact Info) Description 02/19/2021 1:30 PM EDT Office [place] [address] Dmitry Chaudhary MD [facility] [place] [place] [address] Aneurysm, splenic artery Social History Tobacco Use Types Packs/Day Years [...] Sign Reading Time Taken Comments Blood Pressure 157/82 02/19/2021 1:37 PM EDT Pulse 63 02/19/2021 1:37 PM EDT Temperature - - Respiratory Rate - - Oxygen Saturation - - Inhaled Oxygen Concentration - - Weight 87.1 kg (192 lb) 02/19/2021 1:37 PM EDT r eported Height 181.6 cm (5' 11.5) 02/19/2021 1:37 PM ED T reported Body Mass Index 26.41 02/19/2021 1:37 PM EDT documented in this encounter Progress Notes * Dmitry Chaudhary MD - 02/19/2021 1:30 PM EDT OUTPATIENT VASCULAR SURGERY CONSULTATION Reason for Visit: Splenic artery aneurysm History of Present Illness: This is a 75 y.o. 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 The patient is asymptomatic. He is otherwise in good health. reports that he quit smoking about 53 years ago. His smoking use included cigarettes. He has never used smokeless tobacco. Patient Active Problem List Diagnosis Code ??? Gait abnormality R26.9 ??? 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 cetirizine (ZyrTEC) 10 mg Tablet, Take 10 mg by mouth daily., Disp: , Rfl: ??? pyridostigmine (MESTINON) 60 mg Tablet, Take 0.5 tablets by mouth 3 times daily., Disp: 30 tablet, Rfl: 1 ??? levothyroxine (SYNTHROID) 50 mcg Tablet, Take 50 mcg by mouth daily., Disp: , Rfl: ??? tamsulosin (FLOMAX) 0.4 mg Capsule, Sust. Release 24 hr, Take 2 capsules by mouth daily., Disp:, Rfl: ??? fluticasone-salmeterol (ADVAIR) 250-50 mcg/dose Disk [...] Wheezing. Use with spacer, Disp: , Rfl: ??? melatonin 5 mg Tablet, Take 5 mg by mouth nightly., Disp: , Rfl: Allergies Allergen Reactions ? [...] for Thrombosis, Bleeding Disorders Physical Exam: BP 157/82 (BP Location (NBP): Left arm, Patient Position: Sitting, BP Cuff Sizes: Adult (25-34 cm)) Pulse 63 Ht 181.6 cm (5' 11.5) Comment: reported Wt 87.1 kg (192 lb) Comment: reported BMI26.41 kg/m?? General - NAD, appears stated age Neuro - Alert and Oriented, Motor Sensory grossly intact Skin - No prominent markings or lesions Ear, Nose, Throat - No masses, No lesions Cardiac - RRR, no murmurs Lungs - Clear Abd - Soft, NT, ND, No palpable pulsatile masses Musculoskeletal- full ROM upper and lower extremities Psych- alert oriented X3 , Extremities - Warm, pink, no edema, brisk capillary refill Vascular Exam: R L Carotid 2/2 bruit () 2/2 bruit () Radial 2/2 2/2 Femoral Popliteal DP PT Labs: No results found for this or any previous visit (from the past 72 hour(s)). 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 No flowsheet data found. Assessment and Plan: I spent 30 minutes with the patient in [id number] discussion regarding the treatment of the splenic artery aneurysm. I explained to the patient that while it is difficult to place a precise risk ofrupture on an annual basis for the splenic artery aneurysm it i does however well exceed the size criteria to recommend potential treatment. Treatment options include open surgical resection with likely splenectomy versus endovascular coil embolization of the splenic artery aneurysm which would also carry some risk of splenic infarct and the need for splenectomy though this would likely be relatively low. Following our discussion related to the splenic aneurysm the patient would like to follow t his. In order to try to prevent the need for recurrent CT scan evaluation of this relatively large splenic aneurysm our plan will be to have the patient return to the office in 1 month with a duplex ultrasound of the splenic artery in order to see if we can follow this with duplexes. The patient does understand that there is some risk of rupture with this approach and that if the splenic artery aneurysm were to rupture that this could be a fatal event. He also understands that if he were to develop abrupt onset of epigastric or severe abdominal pain that he should report to the nearest emergency room. We will have the patient return to the office in 1 month with a duplex ultrasound of the sp lenic artery. documented in this encounter Plan of Treatment Upcoming Encounters Date Type Department Care Team (Late st Contact Info) Description 06/13/2024 3:00 PM EDT [place] [address] Laura Chavez MD [facility] [place] [address] 12/12/2024 3:30 PM EST [place] [phone] Laura Chavez MD [facility] [place] [address] Scheduled Referrals Name Type Priority Associated Diagnoses Orde r Schedule Referral to Vascular Surgery Outpatient Referral Routine Splenic artery aneurysm Ordered: 02/12/2021 documented as of this encounter Visit Diagnoses Diagnosis Aneurysm, splenic artery Aneurysm of splenic artery documented in this encounter Care Teams Care Tech Relationship Specialty Start Date End Date González Luis DO [address] [place] [address] PCP - General Family Medicine 04/23/17 documented as of this encounter
--- OUTSIDE RECORDS SUMMARY | 2024-05-20 02:49 | XMS_ITS | Encounter Summary ---
Author Organization [facility] [place] [address] Care Team Providers Care Technical Translator Name Role Phone González Luis DO Primary Care Provider Reason for Referral * Diagnostic Test (Routine) - Closed Specialty Diagnoses / Procedures Referred By Contac t Referred To Contact Radiology Diagnoses Generalized weakness Brisk deep tendon reflexes Procedures MRI Cervical Spine wo Contrast (Generic) Laura Chavez MD [facility] [place] [address] [place] [address] Referral ID Status Reason Start Date Expiration Date V isits Requested Visits Authorized [id number] Closed Specialty Service Requested 06/29/2018 06/29/2019 1 1 Encounter Details Date Type Department Care Team (Late st Contact Info) Description 06/29/2018 11:30 AM EDT Office [place] [address] Laura Chavez MD [facility] [place] [address] Generalized weakness; Brisk deep tendon reflexes Social History Tobacco Use Types Packs/Day Years [...] Sign Reading Time Taken Comments Blood Pressure 160/90 06/29/2018 11:23 AM EDT Pulse 74 06/29/2018 11:23 AM EDT Temperature - - Respiratory Rate - - Oxygen Saturation - - Inhaled Oxygen Concentration - - Weight 102.1 kg (225 lb) 06/29/2018 11:23 AM EDT Height 182.9 cm (6') 06/29/2018 11:23 AM EDT rep orted Body Mass Index 30.52 06/29/2018 11:23 AM EDT documented in this encounter Progress Notes * Laura Chavez MD - 06/29/2018 11:30 AM EDT Subjective: Juan J Hardin is a 73 y.o. male referred by Dr. Luis in follow up of possible neuropathy. Referral request: evaluate for peripheral neuropathy Since last visit: Loss of endurance in his left ankle especially with eversion. He is doing better in terms of his strength but not his endurance/stamina. The clonus that he picked up in the past may have been relatedto weakness. He is noticing marked and frustrating variability in his strength. He has progression of neuropathy in his legs and feet. This is not particularly bothersome. His balance is off relating to adductors - this is contributed to by N/T in his legs and feet but variable in terms of time of day and activity. He continues to experience the warm up phenomenon. Minimal pain other than that relate to torn quads when he experienced a fall when snow blowing. Neck pain Is stable and not terrible. He gets some cramping in his hands and hamstrings. This can be fairly diffuse - not changing. Motion sickness is stable - he uses meclizine when needed. MRI brain (08/2017): IMPRESSION No evidence recent [...] at individual levels the body the report. Serologic studies: Normal: SPEP/JUDE, MMA Comprehensive Neuropathy [...] symptoms. Assessment from last visit: Juan J Morales Lashawn is a 72 y.o. male who presents [...] noted in HPI. Objective: Physical Exam: BP 160/90 (BP Location (NBP): Left arm, Patient Position: Sitting, BP Cuff Sizes: Adult (25-34 cm)) Pulse 74 Ht 182.9 cm (6') Comment: reported Wt 102.1 kg (225 lb) BMI 30.52 kg/m2 Appearance: The patient is a healthy-appearing male [...] deficit. Cranial nerves: Facial movements are normal. Hearing is normal to conversation. No evidence of dysphonia or hoarseness of voice. Motor: NE NF SA EE EF WE WF FA FE Syd HG Right nt nt 5 5 5 5 5 4 5- 4+ 5 Left nt nt 5 5 5 5 5 4 5- 4+ 5 HF HE KE KF HAB HADD ADF APF I ToeF E Right 5 nt 5 5 nt nt 5 5 5 4 5- Left 4+ nt 5 5 nt nt 5 5 5 4 5 There is no atrophy or fasciculations. There is no myoclonus, tremor, change in tone, or drift. Sensory: Vibration: Ltoe 0 Rtoe 0 LMM 0 RMM 0 Lknee 7 Rknee [...] the right; however this is not numbness. Coordination: No cerebellar ataxia. Gait and station: Normal stance; normal gait; able to rise from a seated position without the use of his arms. Tendon reflexes: biceps triceps BR patellar AJ Plantars Right 1+ 1+ 1 3 0 mute Left 2 1+ 1+ 2+ [...] Clinical and radiologic correlation is recommended. Assessment: No changes Worsening neuropathy with particular change in UEs (hands) Plan to repeat cervical MRI General he reports that he is feeling progression [...] to monitor this both with clinical exam andpossibly repeat MRI scan in approximately the fall of this year. MRI cervical in June or earlier if his exam changes. Orders Placed This Encounter Procedures ??? MRI Cervical Spine wo Contrast (Generic) CAMILLE Horta I spent 40 minutes of face-face time with the patient, with 21 minutes spent in counseling and coordination of care, excluding the time spent in performing electrodiagnostic studies. documented in this encounter Plan of Treatment Upcoming Encounters Date Type Department Care Team (Late st Contact Info) Description 06/13/2024 3:00 PM EDT Office [place] [address] Laura Chavez MD [facility] [place] [address] 12/12/2024 3:30 PM EST Office [place] [address] Laura Chavez MD [facility] [place] [address] documented as of this encounter Results * [...] and C5-C6 retrolisthesis unchanged. Minimal C6 on [id number] is also stable. Spinal canal narrowing is [...] No evidence for myelopathy. Laura Chavez MD [facility] MRI ORDERABLES documented in this encounter Visit Diagnoses Diagnosis Generalized weakness Other malaise and fatigue Brisk deep tendon reflexes Abnormal reflex Generalized weakness Other malaise and fatigue Brisk deep tendon reflexes Abnormal reflex documented in this encounter Care Teams Technical Translator Relationship Specialty Start Date End Date González Luis DO [address] [place] [address] PCP - General Family Medicine 04/23/17 documented as of this encounter
--- OUTSIDE RECORDS SUMMARY | 2024-05-20 02:49 | XMS_ITS | Encounter Summary ---
Author Organization [facility] [place] [address] Care Team Providers Care Configuration Management Administrator Name Role Phone González Luis DO Primary Care Provider Reason for Referral * Diagnostic Test (Routine) - Closed Specialty Diagnoses / Procedures Referred By Contac t Referred To Contact Radiology Diagnoses Weakness of right leg Procedures MRI Lumbar Spine wo Contrast (Generic) Laura Chavez MD [facility] [place] [address] [place] [address] Referral ID Status Reason Start Date Expiration Date V isits Requested Visits Authorized [id number] Closed Specialty Service Requested 01/21/2021 07/23/2022 1 1 Reason for Visit * Diagnostic Test (Routine) - Closed Specialty Diagnoses / Procedures Referred By Contac t Referred To Contact Radiology Diagnoses Weakness of right leg Procedures MRI Lumbar Spine wo Contrast (Generic) Laura Chavez MD [facility] [place] [address] [place] [address] Referral ID Status Reason Start Date Expiration Date V isits Requested Visits Authorized [id number] Closed Specialty Service Requested 01/21/2021 07/23/2022 1 1 Encounter Details Date Type Department Care Team (Latest Contact Info) Description 02/08/2021 5:24 PM EDT - 02/08/2021 11:59 PM EDT Hospital Encounter MRI at [facility] [place] [address] Laura Chavez MD [facility] [place] [address] Weakness of right leg Discharge Disposition: Home Social History Tobacco Use [...] 3:00 PM EDT [place] [address] Laura Chavez MD [facility] [place] [address] 12/12/2024 3:30 PM EST [place] [address] Laura Chavez MD [facility] [place] [address] documented as of this encounter Procedures Procedure Name Priority Date/Time Associated Diagnosis Comments MRI LUMBAR SPINE WITHOUT CONTRAST Routine 02/08/2021 6:10 PM EDT Weakness of right leg documented in this encounter Results * MRI Lumbar Spine wo Contrast (Generic) (02/08/2021 6:10 PM EDT) Anatomical Region Laterality Modality L-spine Magnetic Resonan ce Impressions 02/09/2021 4:28 AM EDT Multilevel spondylosis as detailed above, without significant interval change appreciated. Comment: The following findings are so common in people without low back pain that while we report their presence, they must be interpreted with caution and in context of the clinical situation (Reference- Reggiek Et Al, Spine 2001). Findings: (Prevalence in patients without low back pain), disc degeneration (decreased T2 signal, height loss, bulge) (91%), disc T2-signal loss (83%), disc height loss (56%), disc bulge (64%), disc protrusion (32%), annular fissure (38%). Thank you for letting us participate in the care of this patient. ??If you are a health care provider and have any questions regarding this report, please contact the number below. ??For patients who have questions please contact the health career technical counselor that requested your imaging first. ? Narrative 02/09/2021 4:28 AM EDT EXAMINATION: MRI LUMBAR SPINE WO CONTRAST (GENERIC) CLINICAL HISTORY: Lumbar radiculopathy, > 6 wks Progressive asymmetric weakness with loss of musce mass MG TECHNIQUE: MRI of the lumbar spine performed without intravenous contrast administration. COMPARISON: MRI lumbar spine 07/08/2017 FINDINGS: Nonspecific diffuse heterogeneous marrow signal, without focal suspicious marrow signal abnormality identified. Vertebral body heights appear relatively well-maintained with mild multilevel endplate degenerative changes. Mild retrolisthesis of L2 and L3. Diffuse loss of disc space height and disc desiccation, most severe at L4-L5. Caliber and signal intensity of the included lower thoracic cord appears to be within normal limits, conus terminating at the level of L2. Small lower sacral Tarlov cyst. Small T2 hyperintense LEFT renal probable cyst. Diverticulosis of the partially imaged sigmoid colon. Findings the individual levels (which are overall similar similar): T12-L1: Disc bulge with loss of disc space height; RIGHT parasagittal annular fissure. Bilateral facet arthrosis. Mild ligament of flavum thickening. Findings contribute to mild central spinal canal and RIGHT neural foraminal narrowing. L1-L2: Disc bulge with loss of disc space height; prior LEFT subarticular focal protrusion is no longer present although LEFT foraminal zone protrusion appears similar. Bilateral facet arthrosis and ligamentum flavum thickening. No significant central spinal canal narrowing. Minimal RIGHT and ttyq-lh-uwqthzgs LEFT neural foraminal narrowing. L2-L3: Disc bulge with loss of disc space height and endplate ridging, ligamentum flavum thickening, and bilateral facet arthrosis contribute to mild to moderate central spinal canal narrowing and moderate bilateral neural foraminal narrowing. L3-L4: Disc bulge with loss of disc space height and endplate ridging, ligamentum flavum thickening, and bilateral facet arthrosis contribute to moderate central spinal canal narrowing as well as moderate RIGHT and moderate to severe LEFT neural foraminal narrowing. L4-L5: Near complete loss of disc space height. Endplate ridging. Ligamentum flavum thickening. Bilateral facet arthrosis. Findings contribute to moderate to severe central spinal canal narrowing as well as moderate RIGHT and moderate to severe LEFT neural foraminal narrowing. L5-S1: Disc bulge eccentric to the LEFT with loss of disc space height and bilateral facet arthrosis. Findings contribute to mild RIGHT and znmf-wr-mlfpklhr LEFT neural foraminal narrowing. Procedure Note Bc Amos MD - 02/09/2021 EXAMINATION: MRI LUMBAR SPINE WO CONTRAST (GENERIC) CLINICAL HISTORY: Lumbar radiculopathy, > 6 wks Progressive asymmetric weakness with loss of musce mass MG TECHNIQUE: MRI of the lumbar spine performed without intravenous contrastadministration. COMPARISON: MRI lumbar spine 07/08/2017 FINDINGS: Nonspecific diffuse heterogeneous marrow signal, without focal suspiciousmarrow signal abnormality identified. Vertebral body heights appear relatively well-maintained with mild multilevel endplate degenerative changes. Mild retrolisthesis of L2 and L3. Diffuse loss of disc space height and disc desiccation, most severe at L4-L5. Caliber and signal intensity of theincluded lower thoracic cord appears to be within normal limits, conus terminatingat the level of L2. Small lower sacral Tarlov cyst. Small T2 hyperintense LEFT renal probable cyst. Diverticulosis of thepartially imaged sigmoid colon. Findings the individual levels (which are overall similar similar): T12-L1: Disc bulge with loss of disc space height; RIGHT parasagittalannular fissure. Bilateral facet arthrosis. Mild ligament of flavum thickening.Findings contribute to mild central spinal canal and RIGHT neural foraminalnarrowing. L1-L2: Disc bulge with loss of disc space height; prior LEFT subarticularfocal protrusion is no longer present although LEFT foraminal zone protrusionappears similar. Bilateral facet arthrosis and ligamentum flavum thickening. No significant central spinal canal narrowing. Minimal RIGHT sysepaq-uy-udkrgrna LEFT neural foraminal narrowing. L2-L3: Disc bulge with loss of disc space height and endplate ridging, ligamentum flavum thickening, and bilateral facet arthrosis contribute tomild to moderate central spinal canal narrowing and moderate bilateral neural foraminal narrowing. L3-L4: Disc bulge with loss of disc space height and endplate ridging, ligamentum flavum thickening, and bilateral facet arthrosis contributeto moderate central spinal canal narrowing as well as moderate RIGHT andmoderate to severe LEFT neural foraminal narrowing. L4-L5: Near complete loss of disc space height. Endplate ridging.Ligamentum flavum thickening. Bilateral facet arthrosis. Findings contribute tomoderate to severe central spinal canal narrowing as well as moderate RIGHT andmoderate to severe LEFT neural foraminal narrowing. L5-S1: Disc bulge eccentric to the LEFT with loss of disc space heightand bilateral facet arthrosis. Findings contribute to mild RIGHT and wmfh-yz-efcjxavn LEFT neural foraminal narrowing. IMPRESSION Multilevel spondylosis as detailed above, without significant intervalchange appreciated. Comment: The following findings are so common in people without low backpain that while we report their presence, they must be interpreted with cautionand in context of the clinical situation (Reference- Reggiek Et Al, [id number]). Findings: (Prevalence in patients without low back pain), discdegeneration (decreased T2 signal, height loss, bulge) (91%), disc T2-signal loss(83%), disc height loss (56%), disc bulge (64%), disc protrusion (32%), annularfissure (38%). Thank you for letting us participate in the care of this patient. If youare a health care provider and have any questions regarding this report,please contact the number below. For patients who have questions please contactthe health career technical counselor that requested your imaging first. Laura Chavez MD IM[facility] MRI ORDERABLES documented in this encounter Visit Diagnoses Diagnosis Weakness of right leg Other musculoskeletal symptoms referable to limbs documented in this encounter Care Teams Configuration Management Administrator Relationship Specialty Start Date End Date González Luis DO [address] [place] [address] PCP - General Family Medicine 04/23/17 documented as of this encounter
--- OUTSIDE RECORDS SUMMARY | 2024-05-20 02:49 | XMS_ITS | Encounter Summary ---
Author Organization [facility] [place] [address] Care Team Providers Care Ruling Machine Operator Name Role Phone González Luis DO Primary Care Provider Reason for Referral * Consultation (Routine) - Closed Specialty Diagnoses / Procedures Referred By Radha t Referred To Contact [facility] Diagnoses Spinal stenosis of lumbar region, unspecified whether neurogenic claudication present Spine - Lumbar stenosis/ LE weakness/ EMG 01/21/21 & MRI 02/08/21 in eDH Laura Obrien MD [facility] [place] [address] [facility] [place] [address] Referral ID Status Reason Start Date Expiration Date V isits Requested Visits Authorized [id number] Closed Consult, Test & Treat 02/12/2021 02/12/2022 1 1 * Consultation (Urgent) - Closed Specialty Diagnoses / Procedures Referred By Radha t Referred To Contact Vascular Surgery Diagnoses Splenic artery aneurysm Laura Obrien MD [facility] [place] [address] [facility] [address] [place] [address] Referral ID Status Reason Start Date Expiration Date V isits Requested Visits Authorized [id number] Closed Consult, Test & Treat 02/12/2021 02/12/2022 2 2 Encounter Details Date Type Department Care Team (Late st Contact Info) Description 02/12/2021 4:00 PM EDT TH Visit (TeleHealth) [place] [address] Laura Obrien MD [facility] [place] [address] Splenic artery aneurysm; Spinal stenosis of lumbar region, unspecified whether neurogenic claudication present; Myasthenia gravis; Weakness of right leg; Fatigue, unspecified type; Neuropathy Social History Tobacco Use Types Packs/Day [...] Progress Notes * Laura Obrien MD - 02/12/2021 4:00 PM EDT Neurology Clinic Telephone/Telehealth Follow-up Note Per COVID19 Restrictions 02/12/21 4:19 PM Patient Name: Juan J Hardin : 1945 PCP: González Luis DO Patient ID: Juan J Hardin is a 75 y.o. male was evaluated remotely instead of scheduled FU visit. Last visit was01/21/2021. 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 Dldkvbu-Ukjsh-Ynkxg disease ??? Gait abnormality NCS/EMG IMPRESSION: Abnormal study. Persistent and unchanged [...] forward with him by telehealth. Interval History: Clarified his Mestinon use. Note erroneous report above noted in assessment from last visit. His current dose is as follows: Time 6A 10A 2P 6P 9P Tabs 2 1-2 2 1 1 Dose (mg) 120 60-120 120 60 60: 480 mg Relevant work up: Chest CT: IMPRESSION 1. [...] arthrosis. Findings contribute to mild RIGHT and nbvo-yh-foonoqhk LEFT neural foraminal narrowing. ?? IMPRESSION Multilevel spondylosis as detailed above, without significant interval change appreciated. ?? Medications: Medications 12/09/20 1727 Medication Sig Taking? cetirizine (ZyrTEC) 10 mg Tablet Take 10 mg by mouth daily. melatonin 5 mg Tablet Take 5 mg by mouth nightly. pyridostigmine (MESTINON) 60 mg Tablet Take 0.5 [...] Referral to Spine Center Follow-up: for SFEMG LAURA OBRIEN MD [facility] Orthopedic Brace Maker, Neuromuscular Medicine [facility] 02/12/21 4:19 PM documented in this encounter Plan of Treatment Upcoming Encounters Date Type Department Care Team (Late st Contact Info) Description 06/13/2024 3:00 PM EDT [place] [address] Laura Obrien MD [facility] [place] [address] 12/12/2024 3:30 PM [place] [address] Laura Obrien MD [facility] [place] [address] Scheduled Referrals Name Type Priority Associated Diagnoses Orde r Schedule Referral to Vascular Surgery Outpatient Referral Routine Splenic artery aneurysm Ordered: 02/12/2021 Referral to Spine Center Outpatient Referral Routine Spinal Stenosis Of Lumbar Region, Unspecified Whether Neurogenic Claudication Present Ordered: 02/12/2021 documented as of this encounter Visit Diagnoses Diagnosis 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 Spinal stenosis of lumbar region, unspecified whether neurogenic claudication present Myasthenia gravis Myasthenia gravis without exacerbation Weakness of right leg Other musculoskeletal symptoms referable to limbs Fatigue, unspecified type Neuropathy Mononeuritis of unspecified site documented in this encounter Care Teams Ruling Machine Operator Relationship Specialty Start Date End Date González Luis DO [address] [place] [address] [address] [place] [address] PCP - General Family Medicine 04/23/17 documented as of this encounter
--- OUTSIDE RECORDS SUMMARY | 2024-05-20 02:49 | XMS_ITS | Encounter Summary ---
Author Organization [facility] Address [facility] [place] [place] [address] Care Team Providers Care Optics Engineer Name Role Phone González Luis DO Primary Care Provider [phone] Reason for Visit * Consultation (Routine) - Closed Specialty Diagnoses / Procedures Referred By Radha macdonald Referred To Contact Genetics Diagnoses Fatigue, unspecified type CMT (Ybjondm-Bsnel-Bbmbq disease) Laura Chavez MD [facility] [place] [address] [facility] [address] [place] [phone] Referral ID Status Reason Start Date Expiration Date V isits Requested Visits Authorized [id number] Closed Consult, Test & Treat 03/02/2018 03/02/2019 1 1 Encounter Details Date Type Department Care Team (Late st Contact Info) Description 05/04/2018 2:00 PM EDT Office [place] [address] Aide Moody, [facility] [place] [address] CMT (Jthhcdy-Iyefi-Xozzh disease) Social History Tobacco Use Types Packs/Day Years Used Date Smoking Tobacco: Former Cigarettes Q uit: 06/30/1967 Smokeless Tobacco: Never Alcohol Use Standard Drinks/Week Comments Yes 0 (1 standard drink = 0.6 oz pur e alcohol) Very rare Sex and Gender Information Value Date Recorded Sex Assigned at Not on file Gender Identity Not on file Sexual Orientation Choose not to disclose 2022 11:32 AM EDT documented as of this encounter Progress Notes * Aide Moody, [facility] - 05/04/2018 2:00 PM EDT Juan J was seen today for genetic counseling to review the results from the genetic testing. He was referred by Dr. Chavez. ?? Juan J has been followed by Dr. Chavez in neurology for his diagnosis of a peripheral neuropathy.He was first evaluated in 2016 due to a history of increasing balance difficulties. The gait and balance difficulties were seen along with some numbness in his feet. 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 Dr. Chavez coordinated genetic testing using the [employer] ComprehensiveNeuropathies panel. The results showed several VUS, so a genetic counseling appointment was recommended by Dr. Chavez. ? A complete three generation pedigree was obtained at the visit today. The family history was negative for anyone known to have neuropathy. His brother has possible symptoms. ? I reviewed the genetic testing in detail at the visit today. No pathogenic mutation or certain diagnosis was revealed by the genetic testing. ??I explained the concept of a variant of uncertain significance and that often there is not enough information to determine clinical significance or makemanagement decisions based on a VUS. The testing showed a VUS in three different genes, AARS, [id number] BRENNAN. The following was discussed in detail at the visit: ? AARS ? Mutations in AARS are known to be associated with CMT2N. ??Ysvspui-Axkfj-Nxblk disease 2N (CMT2N) is an axonal form of Sndsmad-Adljh-Dultd disease, a disorder of the peripheral nervous system, rekha acterized by progressive weakness and atrophy, initially of the peroneal muscles and later of the distal muscles of the arms. Ufeqmrx-Bmlml-Netma disease is classified in two main groups on the basisof electrophysiologic properties and histopathology: primary peripheral demyelinating neuropathies (designated CMT1 when they are dominantly inherited) and primary peripheral axonal neuropathies (CMT2). Neuropathies of the CMT2 group are characterized by signs of axonal degeneration in the absence of obvious myelin alterations, normal or slightly reduced nerve conduction velocities, and progressive distal muscle weakness and atrophy. Nerve conduction velocities are normal or slightly reduced. CMT2N is a very rare form of CMT and had only been previously reported in four families in the literature. The age of onset is variable with a range of 6-54 years old. This is an autosomal dominant condition. ? Mutations in AARS as also known to be associated with EIEE29. Epileptic encephalopathy, early infantile, 29 (EIEE29): A form of epileptic encephalopathy, a heterogeneous group of severe childhood onset epilepsies characterized by refractory seizures, neurodevelopmental impairment, and poor prognosis. Development is normal prior to seizure onset, after which cognitive and motor delays become apparent. EIEE29 patients manifest severe infantile epileptic encephalopathy, clubfoot, absent deep tendon reflexes, extrapyramidal symptoms, and persistently deficient myelination. This condition is autosomal recessive. ? The gene change identified in AARS is of uncertain clinical significance. This is a silent aminoacid change that does not change the encoded amino acid sequence. This specific variant has not beepreviously identified in control populations or in affected individuals. Prediction algorithms suggest that this could create or strengthen a splice site, but this prediction is not certain. This is a VUS because there is insufficient evidence to determine pathogenicity. ? DCTN1 ? Mutations in DCTN1 are associated with several different disorders. There has been one mutation in one family reported to be associated with distal hereditary motor neuronopathy type VIIB ??and one other that has been associated with frontotemporal dementia. Some studies have suggested that mutations in DCTN1 are a rare susceptibility locus for ALS. All of the previously mentioned associationsare rare and have been only reported in a few families. ? Most mutations in the DCTN1 gene have been associated with Rhys syndrome. ??Rhys syndrome is aprogressive brain disease that is characterized by four major features: a pattern of movement abnormalities known as parkinsonism, psychiatric changes, weight loss, and abnormally slow breathing (hypo ventilation). These signs and symptoms typically appear in a person's forties or fifties. This is an autosomal dominant condition. ? The variant identified was found in an intron of the DCTN1 gene. This change does not directly change the encoded amino acid sequence. Again this mutation has not been previously reported in healthy controls or affected individuals. Algorithms suggest this could disrupt splicing, but again this is not certain. ? BRENNAN ? Mutations in BRENNAN are associated with autosomal recessive giant neuropathy 1. ??Giant axonal neuropathy is an inherited condition characterized by abnormally large and dysfunctional axons. Symptomsof the disorder first become apparent in the peripheral nervous system, in which long axons connectthe brain and spinal cord (central nervous system) to muscles and to sensory cells that detect sensa tions such as touch, pain, heat, and sound. However, axons in the central nervous system are affected as well. The signs and symptoms of giant axonal neuropathy generally begin in handtools repairer andget worse over time. Most affected individuals first have problems with walking. Later they may lose sensation, strength, and reflexes in their limbs; experience difficulty coordinating movements require and wheelchair assistance. Visual and hearing problems may also occur. Many individuals with this condition have extremely kinky hair as compared to others in their family. This is an autosomal recessive condition. ? The variant identified replaces a weakly conserved residue. All algorithms predict this mutationto be tolerated. ? Summary: ?? At this time the genetic testing did not reveal a conclusive diagnosis for Juan J. The BRENNAN variant would at most indicate carrier status for a recessive disorder and the evidence from the prediction algorithms suggests that this variant could benign. As mentioned above mutations in DCTN1 have only been reported to be associated with neuropathy in one family and Juan J's clinical history is not consistent with Rhys syndrome or ALS. DCTN1 mutation remains a VUS and is of no clinical utility at this time. ? The mutation in CMT2N is more interesting based on Juan J's clinical history, but again I think at this time this remains a VUS. There is insufficient evidence to establish a diagnosis of CMT2N based on these test results due to lack of both clinical information regarding this specific variant and functional studies. 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 In approximately 75% of individuals with CMT type 2 thediagnosis can not be confirmed molecularly. This is most likely due to the fact that there are other genes that cause the condition that have not yet been identified. There are other genetic testing p anels specific for axonal forms of neuropathy that include more genes than the panel ordered by . However, the remaining genes are very rare so I did not recommend any further testing due to the low likelihood of a positive result. 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 ? Most types of CMT type 2 are inherited as an autosomal dominant condition. However there are some rare forms that are autosomal recessive. Based on the family history I can not be certain that ??the condition is autosomal dominant in this family. Juan J's sons have up to a 50% risk to have inherited the condition. Genetic testing in family members would not be recommended since the pathogenicity of the CMT2N variant is unknown. ?? I gave Juan J a copy of his report and encouraged him to call with additional questions. ?? Aide Moody, , [facility] ?? Licensed Genetic Counselor ?? [phone] ?? documented in this encounter Plan of Treatment Upcoming Encounters Date Type Department Care Team (Late st Contact Info) Description 06/13/2024 3:00 PM EDT Office [place] [address] Laura Chavez MD [facility] [address] 12/12/2024 3:30 PM EST Office [place] [address] Laura Chavez MD [facility] [place] [address] Scheduled Referrals Name Type Priority Associated Diagnoses Orde r Schedule Referral to Genetics Outpatient Referral Routine Fatigue, unspecified type CMT (Qvemzyd-Hlmzi-Kyuke disease) Ordered: 03/02/2018 documented as of this encounter Visit Diagnoses Diagnosis CMT (Qqsrdcv-Bpmiq-Dmsdc disease) Peroneal muscular atrophy documented in this encounter Care Teams Optics Engineer Relationship Specialty Start Date End Date González Luis DO [address] [place] [address] PCP - General Family Medicine 04/23/17 documented as of this encounter
--- OUTSIDE RECORDS SUMMARY | 2024-05-20 02:49 | XMS_ITS | Encounter Summary ---
Author Organization [facility] Address [facility] [place] [address] Care Team Providers Care Desktop Publishing Specialist Name Role Phone González Luis DO Primary Care Provider Encounter Details Date Type Department Care Team (Late st Contact Info) Description 03/29/2021 9:15 AM EDT Office [place] [address] Kvng Chaudhary MD [facility] [place] [address] Splenic artery aneurysm Social History Tobacco Use [...] Sign Reading Time Taken Comments Blood Pressure 144/71 03/29/2021 8:58 AM EDT Pulse 66 03/29/2021 8:58 AM EDT Temperature - - Respiratory Rate - - Oxygen Saturation - - Inhaled Oxygen Concentration - - Weight 86.2 kg (190 lb) 03/29/2021 8:58 AM EDT r eported Height 180.3 cm (5' 11) 03/29/2021 8:58 AM EDT reported Body Mass Index 26.5 03/29/2021 8:58 AM EDT documented in this encounter Progress Notes * Kvng Chaudhary MD - 03/29/2021 9:15 AM EDT OUTPATIENT VASCULAR SURGERY CONSULTATION Reason for [...] Diagnosis Code ??? Gait abnormality R26.9 ??? Ipoozpr-Hnfym-Odkgt disease G60.0 Current Outpatient Medications: ??? cetirizine (ZyrTEC) 10 mg Tablet, Take 10 mg by mouth daily., Disp: , Rfl: ??? pyridostigmine (MESTINON) 60 mg Tablet, Take 0.5 tablets by mouth 3 times daily. (Patient taking differently: Take 60 mg by mouth daily. Indications: 7 60mg tabs per day), Disp: [...] for Thrombosis, Bleeding Disorders Physical Exam: BP 144/71 (BP Location (NBP): Left arm, Patient Position: Sitting, BP Cuff Sizes: Adult (25-34 cm)) Pulse 66 Ht 180.3 cm (5' 11) Comment: reported Wt 86.2 kg (190 lb) Comment: reported [...] Text Report Department: Vascular Surgery Lab Patient: [id number] (VALERIANO HARDIN) CPT: 25278 ICD10: I72.8 Referring Physician: KVNG CHAUDHARY Indications: 75 year old male with splenic artery aneurysm, ? size ICD10 Diagnosis Code: I72.8 Findings: Unilateral Waveform PSV cm/s EDV cm/s Jessica Visceral Aorta 86 0 Celiac Artery, Proximal Steele-Biphasic 136 48 Celiac Artery, Mid Steele-Biphasic 133 45 Celiac Artery, Distal Steele-Biphasic 109 35 Sup Mes Artery Proximal Triphasic 192 17 Sup Mes Artery Middle Triphasic 88 0 Sup Mes Artery Distal Triphasic 114 0 Hepatic Artery Steele-Biphasic 97 16 Splenic Artery Monophasic 100 22 Inf Mes Artery Bi-Triphasic 173 0 Interpre tation: Patent splenic artery with a aneurysm in [...] common hepatic artery with antegrade Doppler waveforms. VB Text Report End of Report AAA Duplex, Complete/Bilateral Result Value Ref Range VB Text Report Department: Vascular Surgery Lab Patient: [id number] (VALERIANO HARDIN) CPT: 96765 ICD10: I72.8 Referring Physician: KVNG CHAUDHARY Indications: 75 year old male with splenic artery aneurysm, ? AAA ICD10 Diagnosis Code: I72.8 Findings: Jessica Renal Aorta PSV (cm/s): 86 EDV (cm/s): 0 Diam AP (cm): 2.3 Diam Lateral (cm): 2.3 Infra Renal Aorta PSV (cm/s): 71 EDV (cm/s): 0 Diam AP (cm): 2.2 Diam Lateral (cm): 2.2 Distal Aorta PSV (cm/s): 92 EDV (cm/s): 0 Diam AP (cm): 2.2 Diam Lateral (cm): 2.2 Common Iliac Artery, Proximal, Right PSV (cm/s): 60 EDV (cm/s): 0 Diam AP (cm): 1.7 Diam Lateral (cm): 1.7 Common Iliac Artery, Proximal, Left PSV (cm/s): 61 EDV (cm/s): 0 Diam AP (cm): 1.6 Diam Lateral (cm): 1.5 Interpretation: Patent abdominal aorta and proximal common iliac arteries with no evidence of stenosis or aneurysm. Comparison: No previous study in our vascular lab database for comparison. 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 No flowsheet data found. Assessment and Plan: I spent 30 minutes with the patient in mafh-aq-dwkh discussion regarding the treatment of the splenic artery aneurysm. I explained to the patient that while it is difficult to place a precise risk ofrupture on an annual basis for the splenic artery aneurysm it does however exceed the size criteriato recommend potential treatment. Treatment options include open surgical resection with likely splenectomy versus endovascular coil embolization of the splenic artery aneurysm which would also carrysome risk of splenic infarct and the need for splenectomy though this would be relatively low. Following our discussion related to the splenic aneurysm the patient would like to proceed with embolizat ion. documented in this encounter Plan of Treatment Upcoming Encounters Date Type Department Care Team (Late st Contact Info) Description 06/13/2024 3:00 PM EDT [place] [address] Laura Chavez MD [facility] [place] [address] 12/12/2024 3:30 PM EST [place] [address] Laura Chavez MD [facility] [place] [address] documented as of this encounter Visit Diagnoses Diagnosis 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 documented in this encounter Care Teams Desktop Publishing Specialist Relationship Specialty Start Date End Date González Luis DO [address] [place] [address] PCP - General Family Medicine 04/23/17 documented as of this encounter
--- OUTSIDE RECORDS SUMMARY | 2024-05-20 02:49 | XMS_ITS | Encounter Summary ---
Author Organization [facility] Address [facility] [place] [address] Care Team Providers Care Instructor Nurse Name Role Phone González Luis DO Primary Care Provider Reason for Visit * Reason Onset Date Comments TeleHealth 10/01/2020 Appt 10/02/20 Encounter Details Date Type Department Care Team (Late st Contact Info) Description 10/01/2020 [place] [address] Laura Chavez MD [facility] [place] [address] TeleHealth (Appt 10/02/20) Social History Tobacco Use Types Packs/Day Years [...] Telephone Encounter - Pepper Adamson CMA - 10/01/2020 12:29 PM EST Spoke with patient to review medications and allergies prior to upcoming tele- appointment scheduled with Neurology provider. documented in this encounter Plan of Treatment Upcoming Encounters Date Type Department Care Team (Late st Contact Info) Description 06/13/2024 3:00 PM EDT [place] [address] Laura Chavez MD [facility] [place] [address] 12/12/2024 3:30 PM EST [place] [address] Laura Chavez MD [facility] [place] [address] documented as of this encounter Visit Diagnoses Not on filedocumented in this encounter Care Teams Instructor Nurse Relationship Specialty Start Date End Date González Luis DO [address] [place] [address] [address] [place] [address] PCP - General Family Medicine 04/23/17 documented as of this encounter
--- OUTSIDE RECORDS SUMMARY | 2024-05-20 02:49 | XMS_ITS | Encounter Summary ---
Author Organization [facility] Address [facility] [place] [address] Care Team Providers Care Clerical Order Filler Name Role Phone González Luis DO Primary Care Provider [phone] Reason for Referral * Diagnostic Test (Routine) - Closed Specialty Diagnoses / Procedures Referred By Radha macdonald Referred To Contact Radiology Diagnoses Splenic artery aneurysm Procedures CT Angiogram Abdomen & Pelvis w Contrast (Generic) Tiarra Sheffield PA [facility] [place] [address] [facility] [place] [address] Referral ID Status Reason Start Date Expiration Date V isits Requested Visits Authorized [id number] Closed Specialty Service Requested 04/12/2021 10/12/2022 1 1 Reason for Visit * Auth/Cert Specialty Diagnoses / Procedures Referred By Radha macdonald Referred To Contact Diagnoses Splenic artery aneurysm SPLENIC ARTERY ANEURYSM SPLENIC ARTERY ANEURYSM POST OP [place] Procedures ARTERIOGRAMS Referral ID Status Reason Start Date Expiration Date Visits Re quested Visits Authorized [id number] 1 1 Encounter Details Date Type Department Care Team (Latest Contact Info) Description 04/11/2021 3:40 PM EDT - 04/12/2021 10:35 AM EDT Hospital Encounter 1 [place] [address] Dmitry Chaudhary MD [facility] [place] [address] Splenic artery aneurysm Discharge Disposition: Home Social [...] Sign Reading Time Taken Comments Blood Pressure 149/79 04/12/2021 8:38 AM EDT Pulse - - Temperature 37.3 ??C (99.1 ??F) 04/12/2021 1 0:22 AM EDT Respiratory Rate 20 04/12/2021 8:38 AM EDT Oxygen Saturation 93% 04/12/2021 8:40 AM EDT Inhaled Oxygen Concentration - - Weight 88.8 kg (195 lb 12.3 oz) 021 11:41 PM EDT Height 180.3 cm (5' 10.98) 04/11/2021 11:41 PM EDT Body Mass Index 27.32 04/11/2021 11:41 PM EDT documented in this encounter Discharge Summaries * Jodie Mane APRN - 04/12/2021 9:26 AM EDT Inpatient - Discharge Summary Patient Name: Juan J Hardin Patient Age: 75 y.o. Birthdate: 1945 Admit date: 04/11/2021 Discharge date and time: 04/12/2021 Attending Physician: Dmitry Chaudhary MD Discharging Provider: Jodie Mane APRN Discharging Service: Vascular Surgery Operations/Major Procedures: 04/11/21 mesenteric angio via R groin access for coil embolization of splenic artery aneurysm Active Hospital Problems: Active Hospital Problems Diagnosis ??? Splenic artery aneurysm Resolved Hospital Problems No resolved problems to display. Active Non Hospital Problems: Active Non-Hospital Problems Diagnosis ??? Izurdjp-Wvhfc-Podfz disease ??? Gait abnormality History of Presentation: [...] He is medically cleared for discharge to [facility]. Patient will follow-up in the clinic in [...] Angiogram Abdomen & Pelvis w Contrast (Generic) [FUH522 Custom] 05/12/2021 11/11/2021 Process Instructions: Scheduling Instructions: Questions: Where will study be performed?: [facility] Radiology Reason for exam and clinical history: [...] been ordered for May 12 here at [facility]. You will receive confirmation of this [...] For any problems or questions please call [phone] For issues on weeknights after 5pm and weekends please call [phone] and ask for the Vascular Fellow soil conservation technician. Vascular Surgery Contact Information: documented in this encounter Discharge Instructions * Patient Instructions* Jodie Mane, RUPALI - 04/12/2021 9:59 AM EDT Patient Instructions You were admitted on 04/11/21 after having a coil embolization to reduce the aneurysm on your splenic artery. This went very well. Dr. Chaudhary will want you to be seen in approximately one month with aCTA scan of your abdomen prior. The scan has been ordered for May 12 here at [facility]. You will receive confirmation of this [...] For any problems or questions please call [phone] For issues on weeknights after 5pm and weekends please call [phone] and ask for the Vascular Fellow soil conservation technician. documented in this encounter Medications at Time [...] incision dressing CDI. Slightly hypertensive to 150s/80a. notified. Otherwise VSS on RA. Pt reported [...] artery aneurysm and splenic artery Interlock coils: 1mur51gt, 6qnc96fe, 09yem99ut, 75oae17wy, 30zsw32tl, 61syj66hi, 09aoc75hz, 14qto49fz, 53sbz62lz, 17ett77yn, 38gqm29ou, 94hqc81jm, 3rff07qt, 9ewx88bm 5. Completion angiogram 6. Mynx closure Surgeons: [...] beat prior to shift around 1730 - MD quintero, STAT EKG ordered. Patient started on telemetry, [...] 3:00 PM EDT [place] [address] Laura Chavez MD [facility] [place] [address] 12/12/2024 3:30 PM EST [place] [address] Laura Chavez MD [facility] [place] [address] documented as of this encounter Procedures Procedure [...] who have questions please contact the health customer care specialist that requested your imaging first. ? Narrative 05/17/2021 2:29 PM EDT EXAMINATION: CT [...] images were generated on anindependent workstation. COMPARISON: Chest CT from 02/08/2021 FINDINGS: [...] patients who have questions please contactthe health customer care specialist that requested your imaging first. Dmitry Chaudhary MD IMG CT ORDERABLES * (ABNORMAL) Differential, Automated (04/12/2021 3:51 AM EDT) Neutrophils % 82.6 % [facility] Neutr Abs (ANC) 11.04(H) 1.70 - 6.10 x10(3)/mc L [facility] Lymphocytes % 10.7 % [facility] Lymphocytes Abs 1.4 0.9 - 3.2 x10(3)/[facility] Monocytes % 6.3 % [facility] Monocyte Abs 0.8 0.3 - 0.9 x10(3)/[facility] Eosinophils % 0.1 % [facility] Eosinophils Abs 0.0 0.0 - 0.4 x10(3)/[facility] Basophils % 0.1 % [facility] Basophils Abs 0.0 0.0 - 0.1 x10(3)/[facility] Immature Gran % 0.20 % [facility] Comment: Immature granulocytes(IG's)percentage and absolute count will include metamyelocytes, myelocytes, and promyelocytes. Blood smears from CBCs yielding IG's will be scanned manually for concordance. If this scan disagrees with the automated IG or if promyelocytes are noted, a manual differential will be performed. Pearl Gran Abs 0.03 0.00 - 0.04 x10(3)/[facility] Blood 04/12/2021 3:51 AM EDT 04/12/2021 4:16 AM EDT Narrative Resulting Agency Comment Spec In Lab Shira Mandujano MD HEMATOLOGY ORDERABL ES [facility] [place] [address] * (ABNORMAL) Hemogram (04/12/2021 3:51 AM EDT) WBC 13.4(H) 4.0 - 9.5 x10(3)/[facility] RBC 5.13 4.58 - 5.54 x10(6)/[facility] Hemoglobin 15.6 13.7 - 16.5 gm/dL [facility] Hematocrit 44.9 40.5 - 48.5 % [facility] MCV 87.5 82.9 - 93.1 fL [facility] MCH 30.4 27.5 - 32.1 pg [facility] MCHC 34.7 32.0 - 35.7 gm/dL [facility] Platelets 169 145 - 357 x10(3)/[facility] RDWSD 42.0 36.0 - 45.0 [facility] RDWCV 13.2 11.4 - 13.8 % [facility] MPV 11.8 7.6 - 12.9 [facility] nRBC % Auto 0.0 % [facility] nRBC Abs Auto 0.000 0.000 - 0.000 x10(3)/[facility] Blood 04/12/2021 3:51 AM EDT 04/12/2021 4:16 AM EDT Narrative Resulting Agency Comment Spec In Lab Shira Mandujano MD HEMATOLOGY ORDERABL ES [facility] [place] [address] * (ABNORMAL) Basic Metabolic Panel (non-fasting) (04/12/2021 3:51 AM EDT) Glucose Lvl 103 65 - 199 mg/dL [facility] Comment:Diabetes: >=200 mg/d L plus symptoms BUN 22(H) 10 - 20 mg/dL [facility] Creatinine 0.82 0.80 - 1.50 mg/dL [facility] Sodium 138 135 - 145 mmol/L [facility] Potassium 4.0 3.5 - 5.0 mmol/L [facility] Comment: Please note: ??Patients with WBC >100,000 may have falsely elevated Potassium levels. ??For accurate Potassium quantification in these patients send serum separator tube (gold top) for subsequent determinations. ??Contact the Clinical Chemistry Laboratory if there are any questions. Chloride 106 98 - 107 mmol/L [facility] CO2 24 22 - 31 mmol/L [facility] Anion Gap 8 5 - 15 mmol/L [facility] Calcium 8.9 8.5 - 10.5 mg/dL [facility] Estimated GFR 87 >=60 mL/min/1. 73 m?? [facility] Comment: This patient? s [...] In Lab Dmitry Chaudhary MD CHEMISTRY ORDERABLES [facility] [place] [address] * EKG 12 Lead (04/11/2021 7:41 PM EDT) Ventricular rate 67 BPM MUSE SYSTEM Atrial Rate 67 BPM MUSE SYSTEM P-R Interval 184 ms MUSE SYSTEM QRS Duration 84 ms MUSE SYSTEM Q-T Interval 440 ms MUSE SYSTEM QTC Calculated (Bezet) 464 ms MUSE SYSTEM Calculated P [place] 68 degrees MUSE SYSTEM Calculated R [place] -20 degrees MUSE SYSTEM Calculated T [place] 76 degrees MUSE SYSTEM INTERPRETATION Normal sinus rhythm with sinus arrhythmia Nonspecific ST abnormality No previous ECGs available Confirmed by MD Hanson Daniel ([id number]) on 04/12/2021 4:05:13 PM MUSE SYSTEM 04/11/2021 7:41 PM EDT 04/12/2021 4:05 PM EDT Dmitry Chaudhary MD ECG ORDERABLES [employer] SYSTEM documented in this encounter Visit Diagnoses Diagnosis 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 documented in this encounter Admitting Diagnoses Diagnosis Splenic [...] Discontinued, Routine 1726 (Given - Provider: Agueda Bowles, DEANDRE) 0911 (Given - Provider: Roxie Leiva, DEANDRE) levothyroxine (Synthroid) tablet 50 mcg 50 mcg, Oral, DAILY, First dose on Jessika 04/11/21 at 1745, Until Discontinued, Routine 172 (Given - Provider: Agueda Bowles, RN) 0911 (Given - Provider: Roxie Leiva, DEANDRE) pyridostigmine (Mestinon) tablet 30 mg 30 mg, Oral, EVERY 8 HOURS SCHEDULED, First dose on Jessika 04/11/21 at 1745, Until Discontinued, Routine 172 (Given - Provider: Agueda Bowles, DEANDRE) 0100 (Given - Provider: Dayanara Kern, DEANDRE)0911 (Given - Provider: Roxie Leiva, DEANDRE) sodium chloride 0.9 % (flush) flush 5 mL 5 mL, Intravenous, 2 TIMES DAILY, First dose on Thu04/11/21 at 2100, Until Discontinued, Routine 2053 (Given - Provider: Dayanara Kern, DEANDRE) 0900 (Given - Provider: Roxie Leiva, DEANDRE) tamsulosin (Flomax) capsule 0.4 mg 0.4 mg, Oral, DAILY, First dose on Jessika 04/11/21 at 1745, Until Discontinued, DO NOT CRUSH OR OPEN, Routine 172 (Given - Provider: Agueda Bowles RN) 0900 (Not Given - Provider: Roxie Leiva RN - Reason: Patient/family refused) PRN Medication Order 04/10/2021 04/11/2021 04/12/2021 lidocaine (Xylocaine) 1% (10 mg/mL) injection 3 mg 3 mg (0.3 mL), Subcutaneous, ONCE PRN, 1 dose, Starting on Thu04/11/21 at 1659, Until Thu04/12/21 at 1252, for discomfort with PIV insertion, Routine sodium chloride 0.9 % (flush) flush 5-20 mL 5-20 mL, Intravenous, EVERY 1 MIN PRN, Starting on Thu04/11/21 at 1659, Until Thu04/12/21 at 1252, flush, Flush pertains to all indwelling lines. Flush per protocol found in the job aid using the link provided on this medication record., Routine documented in this encounter Care Teams Clerical Order Filler Relationship Specialty Start Date End Date González Luis DO [address] [place] [address] PCP - General Family Medicine 04/23/17 documented as of this encounter
--- OUTSIDE RECORDS SUMMARY | 2024-05-20 02:49 | XMS_ITS | Encounter Summary ---
Author Organization [facility] [place] [address] Care Team Providers Care Family Preservation Worker Name Role Phone González Luis DO Primary Care Provider Encounter Details Date Type Department Care Team (Latest Contact Info) Description 08/20/2020 12:44 PM EST - 08/20/2020 11:59 PM [facility] Hospital [place] [address] Discharge Disposition: Home Social History Tobacco Use [...] by mouth 3 times daily as needed. melatonin 5 mg Tablet Take 5 mg [...] 3:00 PM EDT Office [place] [address] Laura Chavez MD [facility] [place] [address] 12/12/2024 3:30 PM EST Office [place] [address] Laura Chavez MD [facility] [place] [address] documented as of this encounter Visit Diagnoses Not on filedocumented in this encounter Care Teams Family Preservation Worker Relationship Specialty Start Date End Date González Luis DO [address] [place] [address] PCP - General Family Medicine 04/23/17 documented as of this encounter
--- OUTSIDE RECORDS SUMMARY | 2024-05-20 02:49 | XMS_ITS | Encounter Summary ---
Author Organization [facility] [place] [address] Care Team Providers Care Spring Crater Name Role Phone González Luis DO Primary Care Provider Reason for Referral * Diagnostic Test (Routine) - Closed Specialty Diagnoses / Procedures Referred By Contac t Referred To Contact Radiology Diagnoses Weakness of right leg Procedures MRI Lumbar Spine wo Contrast (Generic) Laura Obrien MD [facility] [place] [address] [facility] [place] [place] [address] Referral ID Status Reason Start Date Expiration Date V isits Requested Visits Authorized [id number] Closed Specialty Service Requested 01/21/2021 07/23/2022 1 1 * Diagnostic Test (Routine) - Closed Specialty Diagnoses / Procedures Referred By Contac t Referred To Contact Radiology Diagnoses Myasthenia gravis Procedures CT Chest w Contrast Laura Obrien MD [facility] [place] [address] [facility] [place] [address] Referral ID Status Reason Start Date Expiration Date V isits Requested Visits Authorized [id number] Closed Specialty Service Requested 01/21/2021 07/23/2022 1 1 Encounter Details Date Type Department Care Team (Late st Contact Info) Description 01/21/2021 9:00 AM EDT Procedure visit Neurology at [facility] [place] [address] Laura Obrien MD [facility] [place] [address] Weakness of right leg; Myasthenia gravis; Fatigue, unspecified type; Neuropathy; Cervical spondylosis Social [...] Progress Notes * Laura Obrien MD - 01/21/2021 9:00 AM EDT Juan J Hardin referred for EDX studies by González Luis, [address] [place] [id number] to look for evidence of NMJ disorder. Report scanned into EDH. Brief history: Juan J Hardin is a 75 y.o. male who was evaluated remotely by in follow up of neuropathy and morerecently episodes of profound fatigue. 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 I would not categorize him as clinically definite disease but clinically possible.He is doing much better with anticholinesterase therapy, optimizing the dose to 4X/day with an additional 5th dose as needed. We discussed changing his Mestinon as noted: - adding a 5th regular dose at 9PM as follows: 03-28-2-6-9 - changing his dose from q4h to q3h. We also discussed timing of covid19 vaccination He is scheduled to proceed with EMG, RNS and SF-EMG. He noted having trouble wit his voice, generalized weakness and difficulty with pushing off while walking. When he had an period of softening of his voice, Mestinon helped with responsiveness. He is doing better at the higher dose of Mestinon. 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 His exam was otherwise not repeated. NCS/EMG IMPRESSION: Abnormal study. Persistent and unchanged [...] and going forward with him by telehealth. Orders Placed This Encounter Procedures ??? CT Chest w Contrast ??? MRI Lumbar Spine wo Contrast (Generic) LAURA OBRIEN documented in this encounter Plan of Treatment Upcoming Encounters Date Type Department Care Team (Late st Contact Info) Description 06/13/2024 3:00 PM EDT [place] [address] Laura Obrien MD [facility] [place] [address] 12/12/2024 3:30 PM EST [place] [address] Laura Obrien MD [facility] [place] [address] documented as of this encounter Results * MRI Lumbar Spine [...] in context of the clinical situation (Reference- Micaelavik Et Al, Spine 2001). Findings: (Prevalence in [...] have questions please contact the health manager medicare that requested your imaging first. ? Electronically signed by: Bc Amos MD, [facility] ([phone]), at 02/09/2021 4:28 AM Narrative 02/09/2021 4:28 AM EDT EXAMINATION: MRI [...] central spinal canal narrowing. Minimal RIGHT and xigk-yj-xbqdtavf LEFT neural foraminal narrowing. L2-L3: Disc bulge [...] arthrosis. Findings contribute to mild RIGHT and syyt-ag-urupewet LEFT neural foraminal narrowing. Procedure Note Bc [...] significant central spinal canal narrowing. Minimal RIGHT rwvgswh-on-sujknniu LEFT neural foraminal narrowing. L2-L3: Disc bulge [...] arthrosis. Findings contribute to mild RIGHT and ixve-gk-mjktezgc LEFT neural foraminal narrowing. IMPRESSION Multilevel spondylosis as detailed above, without significant intervalchange appreciated. Comment: The following findings are so common in people without low backpain that while we report their presence, they must be interpreted with cautionand in context of the clinical situation (Reference- Micaelavik Et Al, [id number]). Findings: (Prevalence in patients without low back [...] who have questions please contactthe health manager medicare that requested your imaging first. Electronically signed by: Bc Amos MD, [facility]([phone]), at 02/09/2021 4:28 AM Laura Obrien MD IMG MRI ORDERABLES * (ABNORMAL) CT Chest w Contrast (02/08/2021 [...] have questions please contact the health manager medicare that requested your imaging first. ? Electronically signed by: Stephanie Da Silva MD, [facility] ([phone]), at 02/11/2021 10:26 AM Narrative 02/11/2021 10:26 [...] spine. Resulting Agency Comment Unexpected Finding Laura Obrien MD IMG CT ORDERABLES documented in this encounter Visit Diagnoses Diagnosis Weakness of right leg Other musculoskeletal symptoms referable to limbs Myasthenia gravis Myasthenia gravis without exacerbation Fatigue, unspecified type Neuropathy Mononeuritis of unspecified site Cervical spondylosis Cervical spondylosis without myelopathy Weakness of right leg Other musculoskeletal symptoms referable to limbs Myasthenia gravis Myasthenia gravis without exacerbation documented in this encounter Care Teams Spring Crater Relationship Specialty Start Date End Date González Luis DO [address] [place] [address] PCP - General Family Medicine 04/23/17 documented as of this encounter
--- OUTSIDE RECORDS SUMMARY | 2024-05-20 02:49 | XMS_ITS | Encounter Summary ---
Author Organization [facility] [place] [address] Care Team Providers Care Signal Mechanic Name Role Phone González Luis DO Primary Care Provider Encounter Details Date Type Department Care Team (Late st Contact Info) Description 03/29/2021 7:30 AM EDT Tech [place] [address] [place], [place] Splenic artery aneurysm Social History Tobacco Use [...] 3:00 PM EDT [place] [phone] Laura Chavez MD [facility] [place] [address] 12/12/2024 3:30 PM EST [place] [address] Laura Chavez MD [facility] [place] [address] documented as of this encounter Procedures Procedure Name Priority Date/Time Associated Diagnosis Comments MESENTERIC COMPLETE Routine 03/29/2021 7 :18 AM EDT Splenic artery aneurysm AAA DUPLEX COMPLETE Routine 03/29/2021 7 :18 AM EDT Splenic artery aneurysm documented in this encounter Results * AAA Duplex, Complete/Bilateral (03/29/2021 7:18 AM EDT) VB Text Report Department: Vascular Surgery Lab Patient: [id number] (VALERIANO HARDIN) CPT: 05844 ICD10: I72.8 Referring Physician: KVNG CHAUDHARY ?? Indications: 75 year old male with [...] for comparison. Electronicall y Signed by: KVNG CHAUDHARY on 2021-03-29 01:29:39 PM [facility] VB Text Report End of Report [facility] 03/29/2021 7:18 AM EDT Kvng Chaudhary MD VASCULAR ORDERABLES [facility] * Duplex Study Visceral Arteries, Comp (03/29/2021 7:18 AM EDT) VB Text Report Department: Vascular Surgery Lab Patient: [id number] (VALERIANO HARDIN) CPT: 69664 ICD10: I72.8 Referring Physician: KVNG CHAUDHARY ?? Indications: 75 year old male with splenic artery aneurysm, ? size ICD10 Diagnosis Code: I72.8 Findings: Unilateral ? Waveform ? PSV cm/s ??EDV cm/s ?? Jessica Visceral Aorta ? 86 ? 0 ?? Celiac Artery, Proximal ??[place]-Biphasic ? 136 ?48 ?? Celiac Artery, Mid ? [place]-Biphasic ? 133 ?45 ?? Celiac Artery, Distal ?[place]-Biphasic ? 109 ?35 ?? Sup Mes Artery Proximal ??Triphasic ? 192 ?17 ?? Sup Mes Artery Middle ?Triphasic ?88 ? 0 ?? Sup Mes Artery Distal ?Triphasic ? 114 ? 0 ?? Hepatic Artery ? [place]-Biphasic ?97 ?16 ?? Splenic Artery ? Monophasic [...] antegrade Doppler waveforms. Electronically Signed by: KVNG CHAUDHARY on 2021-03-29 01:26:30 PM [facility] VB Text Report End of Report [facility] 03/29/2021 7:18 AM EDT Kvng Chaudhary MD VASCULAR ORDERABLES Performing Organization Address City/State/[facility] Co de Phone Number [facility] documented in this encounter Visit Diagnoses Diagnosis 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 documented in this encounter Care Teams Signal Mechanic Relationship Specialty Start Date End Date González Luis DO [address] [place] [address] [address] [place] [address] PCP - General Family Medicine 04/23/17 documented as of this encounter
--- OUTSIDE RECORDS SUMMARY | 2024-05-20 02:49 | XMS_ITS | Encounter Summary ---
Author Organization Formerly [facility], Later [facility] [place] [address] Care Team Providers Care Learning Facilitator Name Role Phone González Luis DO Primary Care Provider Reason for Referral * Diagnostic Test (Routine) - Closed Specialty Diagnoses / Procedures Referred By Radha macdonald Referred To Contact Radiology Diagnoses Splenic artery aneurysm Procedures VS Arteriogram Mesenteric Vascular Surgery Dmitry Chaudhary MD [facility] [place] [address] [place] [address] Referral ID Status Reason Start Date Expiration Date V isits Requested Visits Authorized [id number] Closed Specialty Service Requested 04/01/2021 10/01/2022 1 1 Encounter Details Date Type Department Care Team (Late st Contact Info) Description 04/01/2021 Orders [place] [address] Jayleen Nieto RN Splenic artery [...] EDT Office [place] [address] Laura Chavez MD [facility] [place] [address] 12/12/2024 3:30 PM EST Office [place] [phone] Laura Chavez MD [facility] [place] [address] documented as of this encounter Results * VS Arteriogram Mesenteric [...] artery aneurysm and splenic artery ?Interlock coils: 1pci40dd, 3iih62pb, 33evm52pd, 41ocd02xn, 58ecy76zq, 07bko32mu, ??47pui61dh, 64xgs58wa, 72vje98ph, 68dfs73us, 81dne74dj, 10okp48jf, 5pcb99qm, ? 1ptf73qx 5. Completion angiogram 6. Mynx closure Surgeons: [...] have questions please contact the health care attendant that requested your imaging first. ? Electronically signed by: Dmitry Chaudhary MD, [facility] ([phone]), at 04/23/2021 1:34 PM Procedure Note Dmitry [...] artery aneurysm and splenic artery Interlock coils: 8qbu24as, 2umy80qz, 84ixr14gh, 29gpj92xs, 20qqg37mz, 53eyw26fe, 67msa37uc, 35pha38kw, 70chk39si, 17uzb27pv,23wiu75qp, 85flc39ik, 4mdn40gv, 6kup21fa 5. Completion angiogram 6. Mynx closure Surgeons: [...] who have questions please contactthe health care attendant that requested your imaging first. Electronically signed by: Dmitry Chaudhary MD, [facility]([phone]), at 04/23/2021 1:34 PM Dmitry Chaudhary MD IMG IR ORDERABLES * Creatinine (04/11/2021 11:33 AM EDT) Creatinine 0.90 0.80 - 1.50 mg/dL [facility] Estimated GFR 83 >=60 mL/min/1. 73 m?? [facility] Comment: This patient? s estimated [...] In Lab Dmitry Chaudhary MD CHEMISTRY ORDERABLES [facility] [place] [address] documented in this encounter Visit Diagnoses Diagnosis 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 documented in this encounter Care Teams Learning Facilitator Relationship Specialty Start Date End Date González Luis DO [address] [place] [address] PCP - General Family Medicine 04/23/17 documented as of this encounter
--- OUTSIDE RECORDS SUMMARY | 2024-05-20 02:49 | XMS_ITS | Encounter Summary ---
Author Organization [facility] Address [facility] [place] [address] Care Team Providers Care Bulbs Farmworker Name Role Phone González Luis DO Primary Care Provider [phone] Encounter Details Date Type Department Care Team (Late st Contact Info) Description 11/27/2020 3:00 PM EST TH Visit (TeleHealth) [place] [address] Laura Obrien MD [facility] [place] [address] Fatigue, unspecified type; Neuropathy; Cervical spondylosis Social [...] Progress Notes * Laura Obrien MD - 11/27/2020 3:00 PM EST Neurology Clinic Telephone/Telehealth Follow-up Note Per COVID19 Restrictions 11/27/20 3:29 PM Patient Name: Juan J Hardin : 1945 PCP: González Luis DO Patient ID: Juan J Hardin is a 75 y.o. male was evaluated remotely instead of scheduled FU visit. Last visit was08/20/2020. 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 PMHx relevant to diagnosis: Patient Active Problem List Diagnosis ??? Mnqejln-Kurki-Ijtir disease ??? Gait abnormality Assessment from last visit, 10/02/2020: Juan J Hardin is a 75 y.o. [...] is doing with the increased Mestinon dose. Interval History: He has increased his Mestinon up to 4 times daily and occasionally will add an extra dose. He reports that this is effective - however, he also gets more diarrhea with the higher dose of Mestinon. Heis able to tolerate more exercise and feels like tired at the end of it. The Mestinon improves her endurance in general. Diarrhea is controlled with emptying - he also uses imodium but does not notice a dramatic effect. When he misses a dose of Mestinon he experiences softening/hoarseness of his voice. He has not experienced a significant change in choking, swallowing. His cough is weak. He received his first Covid shot 11/24/20. Mestinon 60 mg qid:5J-14P-5S-6P Relevant work up: Paraneoplastic and MuSK negative Medications: Medications 11/12/202004 Medication Sig Taking? cetirizine (ZyrTEC) 10 mg [...] 5th regular dose at 9PM as follows: 6-10-2-6-9 - changing his dose from q4h to q3h. We also discussed timing of covid19 vaccination He is scheduled to proceed with EMG, RNS and SF-EMG. Follow-up: for EMG. LAURA OBRIEN MD [facility] Nursery Worker, Neuromuscular Medicine [facility] 11/27/20 3:29 PM Patient provided verbal consent prior to [...] 3:00 PM EDT [place] [address] Laura Obrien MD [facility] [place] [address] 12/12/2024 3:30 PM EST [place] [address] Laura Obrien MD [facility] [place] [address] documented as of this encounter Visit Diagnoses Diagnosis Fatigue, unspecified type Neuropathy Mononeuritis of unspecified site Cervical spondylosis Cervical spondylosis without myelopathy documented in this encounter Care Teams Bulbs Farmworker Relationship Specialty Start Date End Date González Luis DO [address] [place] [address] [address] [place] [address] PCP - General Family Medicine 04/23/17 documented as of this encounter
--- OUTSIDE RECORDS SUMMARY | 2024-05-20 02:50 | XMS_ITS | Encounter Summary ---
Author Organization [facility] Address [facility] [place] [address] Care Team Providers Care Track Repair Worker Name Role Phone González Luis DO Primary Care Provider [phone] Encounter Details Date Type Department Care Team (Late st Contact Info) Description 09/17/2017 2:30 PM EST Office Visit Physical Therapy at [facility] [address] [place] [address] Phoebe Watkins, PT [facility] PHYSICAL MEDICINE & [place] [address] Bknncnc-Kablx-Twyxr disease Social History Tobacco Use Types Packs/Day Years [...] as of this encounter Progress Notes * Phoebe Watkins, PT - 09/17/2017 2:30 PM EST Physical Therapy Progress Note Total treatment time: 30 minutes Total timed code treatment: 30 minutes Follow up visit for patient with 1. Lfaprgm-Ndglf-Yjnom disease S: Patient reports that he is doing about the same O: Therex: Strength/Endurance/ROM (22170) 30 min ?? Nustep L=5 5min ?? Tandem walking across gym x4 then in Parallel bars on Airex foam beam ?? Standing on foam hip abd x10 each ?? Standing in tandem on foam with ball toss in parallel bars ?? Standing SL on foam with ball toss ?? Squats on rocker board and then Bosu x10 ?? Patient education on standing on unstable surface and doing upper body exercises to implement balance and exercise ?? A: Patient able to perform exercise on foam with some balance checks in parallel bars P: Hold chart open and he will call if he feels more PT would be helpful based on symptoms Medicare Certification period: 08/31/2017 - 12/01/2017 G-Code: Mobility Status Modifier CURRENT CJ - At least 20 percent but less than 40 percent impaired, limited or restricted PROJECTED CI - At least 1 percent but less than 20 percent impaired, limited or restricted DISCHARGE Not Discharged Yet - Ongoing ?? G Code Rationale: This G-Code and these disability modifiers were selected as the primary therapy goal based upon the patient's evaluation including the following functional test(s) . Current abilitymeasures, co-morbidities and clinical judgement were also used to select the disability modifier. ?? Medicare Therapy G-Code Date Tracking: (Update G-Code status every 10 visits or when code changes) 1 2 3 4 5 6 7 8 9 10 ?? 09/17? documented in this encounter Plan of Treatment Upcoming Encounters Date Type Department Care Team (Late st Contact Info) Description 06/13/2024 3:00 PM EDT [place] [address] Laura Chavez MD [facility] [place] [address] 12/12/2024 3:30 PM EST [place] [phone] Laura Chavez MD [facility] [place] [address] documented as of this encounter Visit Diagnoses Diagnosis Xrrtfxg-Gerwb-Pwcml disease Peroneal muscular atrophy documented in this encounter Care Teams Track Repair Worker Relationship Specialty Start Date End Date González Luis DO [address] [place] [address] PCP - General Family Medicine 04/23/17 documented as of this encounter
--- OUTSIDE RECORDS SUMMARY | 2024-05-20 02:50 | XMS_ITS | Encounter Summary ---
Author Organization [facility] [place] [address] Care Team Providers Care Cleaner Greaser Name Role Phone González Luis DO Primary Care Provider Encounter Details Date Type Department Care Team (Late st Contact Info) Description 07/10/2017 External [place] [phone] Laura Chavez MD [facility] [address] Social History Tobacco Use Types Packs/Day Years [...] 3:00 PM EDT [place] [address] Laura Chavez MD [facility] [address] 12/12/2024 3:30 PM EST [place] [address] Laura Chavez MD [facility] [place] [address] documented as of this encounter Procedures Procedure Name Priority Date/Time Associated Diagnosis Comments EMG SCAN Routine 07/06/2017 documented in this encounter Results * Scan Doc: EMG (07/06/2017) Laura Chavez MD [facility] SCAN EXT ORDR/RSLT documented in this encounter Visit Diagnoses Not on filedocumented in this encounter Care Teams Cleaner Greaser Relationship Specialty Start Date End Date González Luis DO [address] [address] PCP - General Family Medicine 04/23/17 documented as of this encounter
--- OUTSIDE RECORDS SUMMARY | 2024-05-20 02:50 | XMS_ITS | Encounter Summary ---
Author Organization [facility] Address [facility] [place] [address] Care Team Providers Care Director Of Patient Care Name Role Phone González Luis DO Primary Care Provider [phone] Reason for Visit * Physical Therapy (Routine) - Closed Specialty Diagnoses / Procedures Referred By Radha t Referred To Contact Physical Therapy Diagnoses CMT (Imevgxd-Nufmu-Ljihk disease) Laura Chavez MD [facility] [place] [address] Cherelle Lewis, PT [facility] PHYSICAL MEDICINE & [place] [address] Referral ID Status Reason Start Date Expiration Date V isits Requested Visits Authorized [id number] Closed Evaluate and Treat 08/18/2017 08/18/2018 1 1 Encounter Details Date Type Department Care Team (Late st Contact Info) Description 08/31/2017 10:30 AM EST Office Visit Physical Therapy at [facility] [address] [place] [address] Santhosh Yun, PT [facility]ICAL [facility] [place] [address] Gait abnormality; Ghntged-Aohxc-Ixabz disease Social History Tobacco Use Types Packs/Day [...] as of this encounter Progress Notes * Santhosh Yun, PT - 08/31/2017 10:30 AM EST PHYSICAL THERAPY INITIAL EXAMINATION Date of Exam/First Treatment: 08/31/2017 Date of onset: Referring Provider: Laura Chavez Primary Insurance: Payor: MEDICARE / Plan: MEDICARE PART A & B / Product Type: *No Product type* / Diagnosis and pertinent co-morbidities: 1. Gait abnormality Medicare Certification period: 08/31/2017 - 12/01/2017 G-Code: Mobility Status Modifier CURRENT CJ - At least 20 percent but less than 40 percent impaired, limited or restricted PROJECTED CI - At least 1 percent but less than 20 percent impaired, limited or restricted DISCHARGE Not Discharged Yet - Ongoing G Code Rationale: This G-Code and these disability modifiers were selected as the primary therapy goal based upon the patient's evaluation including the following functional test(s) . Current abilitymeasures, co-morbidities and clinical judgement were also used to select the disability modifier. Medicare Therapy G-Code Date Tracking: (Update G-Code status every 10 visits or when code changes) 1 2 3 4 5 6 7 8 9 10 CURRENT HISTORY: Juan J Hardin is a 72 y.o. male referred to physical therapy for treatment of gait abnormailty and balance due to recent diagnosed with Charcot aydee tooth disease. He has been walking 20-30min daily and notices that his endurance and strength is decreasing. He walks in the [place] but has not used poles and feels unsteady. This unsteadiness is more related to sensory deficits in feet. He is an active person and has been used to hiking more aggressively but fatigue and endurance has been an issue.He recently saw DR Chavez in neurology where she discussed all diagnostic testing that was done andwas found to have sensory deficits in L4 dermatome on left and L5 on Right. EMG studies reveal denervation at L4, L5, and S1. Also has +babinski And will Have more diagnostic testing this week. He was recommended to PT to work on balance. 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 (L5) Ankle PF (S1) Right 5 5 5 5 5 4+ 5 Left 5 5 5 5 5 4+ 5 Flexibility: decreased: hamstring and gastroc Weak foot intrinics Special Tests: Slump - SLR - Prone instability test not performed ROBBIE - SI compression not performed SI distraction not performed Sacral thrust not performed Thigh thrust not performed Pao not performed González - Lumbar spring Joint mobility: segmental mobility at lumbar spine: Hypomobile Palpation: No tenderness with palpation noted Sensation: Touch: abnormal . 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 Expect with skilled physical therapy interventions patient will be able to return to prior level offunction. GOALS: Therapy Short Term Goals (2wks) 1. Patient to be indep with home exercise program. 2. Patient to be able Improve balance to hold SLS Therapy Fdc Goals ( 4wks) 1 Patient to have a self guided balance program to address and monitor balance deficits INITIAL TREATMENT INCLUDED: Examination and instruction in a home exercise program (refer to chart copy or to scan doc in chart review for details), patient education regarding physical therapy plan of care, anatomy and diagnosis. PLAN: Frequency and duration: 1 x per week for 6 weeks Treatment plan: Manual Techniques, Stretching, Joint Mobilization, Therapeutic Exercise, Patient/Family Education, Body Mechanics, Posture, Home Exercise Program, Balance and Gait Training and Pain Science Education Total Treatment time: 45 min Total Timed Coded Treatment: 0 min The plan has been discussed with the patient and Juan J Hardin has agreed with the planned treatment. SANTHOSH YUN PT documented in this encounter Plan of Treatment Upcoming Encounters Date Type Department Care Team (Late st Contact Info) Description 06/13/2024 3:00 PM EDT Office [place] [address] Laura Chavez MD [facility] [place] [address] 12/12/2024 3:30 PM EST [place] [address] Laura Chavez MD [facility] [place] [address] Scheduled Referrals Name Type Priority Associated Diagnoses Orde r Schedule Referral to Physical Therapy Outpatient Referral Routine CMT (Qvdgudz-Pxolf-Vsydb disease) Ordered: 08/18/2017 documented as of this encounter Visit Diagnoses Diagnosis Gait abnormality Abnormality of gait Tnnxots-Iwzqg-Hvynf disease Peroneal muscular atrophy documented in this encounter Care Teams Director Of Patient Care Relationship Specialty Start Date End Date González Luis DO [address] [place] [address] PCP - General Family Medicine 04/23/17 documented as of this encounter
--- OUTSIDE RECORDS SUMMARY | 2024-05-20 02:50 | XMS_ITS | Encounter Summary ---
Author Organization [facility] Address [facility] [place] [address] Care Team Providers Care Name Role Phone González Luis DO Primary Care Provider Encounter Details Date Type Department Care Team (Late st Contact Info) Description 08/28/2017 Orders Only [place] [address] Elif Blackman Social History Tobacco Use Types Packs/Day Years [...] 3:00 PM EDT Office Visit [place] [address] Laura Cahvez MD [facility] [place] [address] 12/12/2024 3:30 PM EST Office Visit [place] [address] Laura Chavez MD [facility] [place] [address] documented as of this encounter Visit Diagnoses Not on filedocumented in this encounter Care Teams Relationship Specialty Start Date End Date González Luis DO [address] [place] [address] PCP - General Family Medicine 04/23/17 documented as of this encounter
--- OUTSIDE RECORDS SUMMARY | 2024-05-20 02:50 | XMS_ITS | Encounter Summary ---
[place] [address] Care Team Providers Care Television Engineer Name Role Phone González Luis DO Primary Care Provider [phone] Reason for Referral * Consultation (Routine) - Closed Specialty Diagnoses / Procedures Referred By Radha macdonald Referred To Contact Genetics Diagnoses Fatigue, unspecified type CMT (Itemycz-Zrotj-Hbahn disease) Laura Chavez MD [facility] [place] [address] [facility] [address] [place] [phone] Referral ID Status Reason Start Date Expiration Date V isits Requested Visits Authorized [id number] Closed Consult, Test & Treat 03/02/2018 03/02/2019 1 1 Encounter Details Date Type Department Care Team (Late st Contact Info) Description 03/02/2018 10:30 AM EDT [place] [address] Laura Chavez MD [facility] [place] [address] Fatigue, unspecified type; CMT (Nvzmjwx-Tmsqp-Uhbcm disease) Social History Tobacco Use Types Packs/Day [...] Sign Reading Time Taken Comments Blood Pressure 140/80 03/02/2018 10:03 AM EDT Pulse 73 03/02/2018 10:03 AM EDT Temperature - - Respiratory Rate - - Oxygen Saturation - - Inhaled Oxygen Concentration - - Weight 105.7 kg (233 lb) 03/02/2018 10:03 AM EDT Height 182.9 cm (6') 03/02/2018 10:03 AM EDT rep orted Body Mass Index 31.6 03/02/2018 10:03 AM EDT documented in this encounter Progress Notes * Laura Chavez MD - 03/02/2018 10:30 AM EDT Subjective: Juan J Hardin is a 72 y.o. male referred by Dr. Luis in follow up of possible neuropathy. Referral request: evaluate for peripheral neuropathy Since last visit: No significant change in clinical status. Some days are good and some are not as good. He has been using some stimulants for fatigue and this has helped. He tore his quadriceps in the winter and this is limiting him in terms of endurance and balance. 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 He was using crutches for ~1 week bu mobility was limited up to ~6 weeks. He feels his gait is different - more unsteady. He did a hike this spring that he did this past fall. He started with a applications trainer this September that has been working with - he started with this before his fall. His applications trainer has been initially working with his core after the fall but has advanced to working on extremities He describes a warm up phenomenon with hiking - this is noticeable with a 1-2 mile hike. This is a fairly constant with other activities. Pain: none Numbness tingling has worsened; he feels like he has clubs Back pain: fell off and hurt his back with a fall but this came back quickly Falls/near falls: none Increased fatigue in his UEs without pain or sensation changes. Chewing/swallowing: he sputters occasionally; he does pay more attention. Bowel/bladder: ok Vision: ok Voice: tends to lose his voice that he attributes to allergies. He does not some softening. Light-headedness: some Manual dexterity: stable Muscle cramping: diffuse and not localized to specific muscle Autonomic symptoms: few MRI brain (08/2017): IMPRESSION No evidence recent [...] last visit: Juan J Hardin is a 72 y.o. [...] noted in HPI. Objective: Physical Exam: BP 140/80 (BP Location (NBP): Left arm, Patient Position: Sitting, BP Cuff Sizes: Large Adult (32-43 cm)) Pulse 73 Ht 182.9 cm (6') Comment: reported Wt 105.7 kg (233 lb) BMI 31.6 kg/m2 Exam not repeated today as this was a counseling visit - exam from last visit was as follows: Appearance: The patient is a healthy-appearing male who appears of stated age and comes to his visit unaccompanied. he appears well developed and well nourished and requires no assistive devices for walking. Extremities: no edema, feet are high arched without varus deformity or markedly thinned ankles; color and temperature symmetric and normal but he has areas of well healing injury to the medio plantaraspect of the left foot and plantar aspect of the right foot. Mental status: The patient is alert and [...] NF SA EE EF WE WF FA HG Right 5/5/5 5/5/5 nt nt nt nt nt 5 5 Left 5/5/5 5/5/5 nt nt nt nt nt 5 5 HF HE KE KF HAB HADD ADF APF I E Right 5 nt 5 5- nt nt 5 5 5 5- Left 5 nt 5 5 nt nt 5 5 5 5 There is no atrophy or fasciculations. There is no myoclonus, tremor, change in tone, or drift. Sensory: Vibration: Ltoe nt Rtoe nt LMM 0 RMM 0 Lknee 6 Rknee 6 LDIP2 8 RDIP2 8 LDIP5 [...] BR patellar AJ Plantars Right 1+ 1+ 2 2+ tr* mute Left 2 2 2 2+ tr up *more difficult to obtain on the right than the left No clonus. Relevant lab (04/2017): Normal: B12 [...] Clinical and radiologic correlation is recommended. Assessment: General he reports that he is feeling [...] changes. Orders Placed This Encounter Procedures ??? Paraneoplastic Autoantibody Eval ??? Referral to Genetics CAMILLE Horta I spent 40 minutes of face-face time with the patient, with 21 minutes spent in counseling and coordination of care, excluding the time spent in performing electrodiagnostic studies. documented in this encounter Plan of Treatment Upcoming Encounters Date Type Department Care Team (Late st Contact Info) Description 06/13/2024 3:00 PM EDT [place] [address] Laura Chavez MD [facility] [place] [address] 12/12/2024 3:30 PM EST [place] [address] Laura Chavez MD [facility] [place] [address] Scheduled Referrals Name Type Priority Associated Diagnoses Orde r Schedule Referral to Genetics Outpatient Referral Routine Fatigue, unspecified type CMT (Seyvfob-Topnw-Zgtoh disease) Ordered: 03/02/2018 documented as of this encounter Procedures Procedure Name Priority Date/Time Associated Diagnosis Comments PARANEOPLASTIC AUTOANTIBODY EVAL, SERUM Routine 03/02/2018 11:36 AM EDT Fatigue, unspecified type CMT (Lahnptv-Yucif-Azao h disease) documented in this encounter Results * Paraneoplastic Autoantibody Eval (03/02/2018 11:36 AM EDT) Paraneo Eval Interpretation SEE COMMENTS [facility] Comment: No informative autoantibodies were detected in the Paraneoplastic Evaluation. However, a negative result does not exclude neurological autoimmunity with or without associated neoplasia. Sensitivity and specificity of antibody testing are enhanced by testing both serum and CSF. Test Performed by: [address] [address] DAT-1 (Anti-Neuronal Nuclear Ab, Type 1) Negative <1:240 titer [facility] Comment: Test Performed by: [facility] [address] [place] [address] DAT-2 (Anti-Neuronal Nuclear Ab,Type 2) Negative <1:240 titer [facility] Comment: ADDITIONAL INFORMATION This test was developed and its performance characteristics determined by [facility] in a manner consistent with CLIA requirements. This test has not been cleared or approved by the U.S. Food and Drug Administration. Test Performed by: [facility] - [address] [address] DAT-3 (Anti-Neuronal Nuclear Ab, Type 3) Negative <1:240 titer [facility] Comment: ADDITIONAL INFORMATION This test was developed and its performance characteristics determined by [facility] in a manner consistent with CLIA requirements. This test has not been cleared or approved by the U.S. Food and Drug Administration. Test Performed by: [facility] [address] [place] [address] AGNA-1 (Anti-Glial Nuclear Ab, Type 1) Negative <1:240 titer [facility] Comment: ADDITIONAL INFORMATION This test was developed and its performance characteristics determined by [facility] in a manner consistent with CLIA requirements. This test has not been cleared or approved by the U.S. Food and Drug Administration. Test Performed by: [facility] - [address] [address] MACHINE TOOL DESIGNER-1 (Purkinje Cell Cytoplasmic Ab-Type 1) Negative <1:240 titer [facility] Comment: ADDITIONAL INFORMATION This test was developed and its performance characteristics determined by [facility] in a manner consistent with CLIA requirements. This test has not been cleared or approved by the U.S. Food and Drug Administration. Test Performed by: [facility] - [address] [address] MACHINE TOOL DESIGNER-2 (Purkinje Cell Cytoplasmic Ab-Type 2) Negative <1:240 titer [facility] Comment: ADDITIONAL INFORMATION This test was developed and its performance characteristics determined by [facility] in a manner consistent with CLIA requirements. This test has not been cleared or approved by the U.S. Food and Drug Administration. Test Performed by: [facility] - [address] [address] MACHINE TOOL DESIGNER-Type Tr (Purkinje Cell Cytoplasmic Ab-Type Tr) Negative <1:240 titer [facility] Comment: ADDITIONAL INFORMATION This test was developed and its performance characteristics determined by [facility] in a manner consistent with CLIA requirements. This test has not been cleared or approved by the U.S. Food and Drug Administration. Test Performed by: [facility] - [address] [address] Amphiphysin Antibody Negative <1:240 titer [facility] Comment: ADDITIONAL INFORMATION This test was developed and its performance characteristics determined by [facility] in a manner consistent with CLIA requirements. This test has not been cleared or approved by the U.S. Food and Drug Administration. Test Performed by: [facility] - [address] [address] CRMP-5-IgG Negative <1:240 titer [facility] Comment: ADDITIONAL INFORMATION This test was developed and its performance characteristics determined by [facility] in a manner consistent with CLIA requirements. This test has not been cleared or approved by the U.S. Food and Drug Administration. Test Performed by: [facility] - [address] [address] Striated Muscle Ab Negative <1:120 titer [facility] Comment: ADDITIONAL INFORMATION This test was developed and its performance characteristics determined by [facility] in a manner consistent with CLIA requirements. This test has not been cleared or approved by the U.S. Food and Drug Administration. Test Performed by: [facility] - [address] [address] P/Q-Type Ca Channel Ab 0.00 <=0.02 nmol/L [facility] Comment: ADDITIONAL INFORMATION This test was developed and its performance characteristics determined by [facility] in a manner consistent with CLIA requirements. This test has not been cleared or approved by the U.S. Food and Drug Administration. Test Performed by: [facility] - [address] [address] N-Type Ca Channel Ab 0.00 <=0.03 nmol/L [facility] Comment: ADDITIONAL INFORMATION This test was developed and its performance characteristics determined by [facility] in a manner consistent with CLIA requirements. This test has not been cleared or approved by the U.S. Food and Drug Administration. Test Performed by: [facility] - [address] [address] ACHr Binding Ab 0.00 <=0.02 nmol/L [facility] Comment: ADDITIONAL INFORMATION This test was developed and its performance characteristics determined by [facility] in a manner consistent with CLIA requirements. This test has not been cleared or approved by the U.S. Food and Drug Administration. Test Performed by: [facility] - [address] [address] AChR Gang Neuronal Ab 0.00 <=0.02 nmol/L [facility] Comment: ADDITIONAL INFORMATION This test was developed and its performance characteristics determined by [facility] in a manner consistent with CLIA requirements. This test has not been cleared or approved by the U.S. Food and Drug Administration. Test Performed by: [facility] - [address] [address] Neuronal (V-G) K+ Channel Ab 0.00 <=0.02 nmol/L [facility] Comment: ADDITIONAL INFORMATION This test was developed and its performance characteristics determined by [facility] in a manner consistent with CLIA requirements. This test has not been cleared or approved by the U.S. Food and Drug Administration. Test Performed by: [facility] - [address] [address] Blood specimen (specimen) 03/02/2018 11:36 AM EDT 03/03/2018 12:43 PM EDT Narrative Resulting Agency Comment Spec In Lab Laura Chavez MD CHEMISTRY ORDERABLE S [facility] [place] [address] documented in this encounter Visit Diagnoses Diagnosis Fatigue, unspecified type CMT (Eukgwlt-Dgiti-Bcswq disease) Peroneal muscular atrophy documented in this encounter Care Teams Television Engineer Relationship Specialty Start Date End Date González Luis DO [address] [place] [address] PCP - General Family Medicine 04/23/17 documented as of this encounter
--- OUTSIDE RECORDS SUMMARY | 2024-05-20 02:50 | XMS_ITS | Encounter Summary ---
Author Organization [facility] Address [address] [place] [address] Care Team Providers Care Trader Name Role Phone Unknown, Provider Primary Care Provider Encounter Details Date Type Department Care Team (Latest Contact Info) Description 09/18/2017 12:19 EST - 09/18/2017 23:59 EST Hospital Encounter [address] [address] Unknown, Provider, Discharge Disposition: Home or Self Care Social History Tobacco Use Types Packs/Day Years Used Date Smoking Tobacco: Never Assessed Sex and Gender Information Value Date Recorded Sex Assigned at Not on file Gender Identity Not on file Sexual Orientation Not on file documented as of this encounter Discharge Disposition Disposition Code Departure Means Destination Home or Self [facility] documented in this encounter Plan of Treatment Not on file documented as of this encounter Visit Diagnoses Not on filedocumented in this encounter Care Teams Trader Relationship Specialty Start Date End Date Unknown, Provider, PCP - General 09/09/15 09/22/17 documented as of this encounter
--- OUTSIDE RECORDS SUMMARY | 2024-05-20 02:50 | XMS_ITS | Encounter Summary ---
Author Organization [facility] [place] [address] Care Team Providers Care Lump Machine Operator Name Role Phone González Luis DO Primary Care Provider Reason for Referral * Diagnostic Test (Routine) - Specialty Diagnoses / Procedures Referred By Contac t Referred To Contact Radiology Diagnoses Balance disorder Numbness and tingling of both feet Procedures MRI Cervical Spine wo Contrast (Generic) Laura Chavez MD [facility] [place] [address] [place] [address] Referral ID Status Reason Start Date Expiration Date Visits Requested Visits Authorized Specialty Service Requested 07/06/2017 07/06/2018 1 1 * Diagnostic Test (Routine) - Closed Specialty Diagnoses / Procedures Referred By Contac t Referred To Contact Radiology Diagnoses Balance disorder Numbness and tingling of both feet Procedures MRI Lumbar Spine wo Contrast (Generic) Laura Chavez MD [facility] [place] [address] [place] [address] Referral ID Status Reason Start Date Expiration Date V isits Requested Visits Authorized Closed Specialty Service Requested 07/06/2017 07/06/2018 1 1 Reason for Visit * Diagnostic Test (Routine) - Closed Specialty Diagnoses / Procedures Referred By [place] t Referred To Contact Radiology Diagnoses Balance disorder Numbness and tingling of both feet Procedures MRI Lumbar Spine wo Contrast (Generic) Laura Chavez MD [facility] [place] [address] [facility] [place] [address] Referral ID Status Reason Start Date Expiration Date V isits Requested Visits Authorized [id number] Closed Specialty Service Requested 07/06/2017 07/06/2018 1 1 Encounter Details Date Type Department Care Team (Latest Contact Info) Description 07/08/2017 10:27 AM EDT - 07/08/2017 11:59 PM EDT Hospital [place] [address] Laura Chavez MD [facility] [place] [address] Balance disorder; Numbness and tingling of both feet Discharge Disposition: Home Social History Tobacco Use [...] by mouth 3 times daily as needed. fluticasone-salmeterol (ADVAIR) 250-50 mcg/dose Disk with Device [...] 3:00 PM EDT Office [place] [address] Laura Chavez MD [facility] [place] [place] [address] 12/12/2024 3:30 PM EST Office [place] [address] Laura Chavez MD [facility] [place] [place] [address] documented as of this encounter Procedures Procedure Name Priority Date/Time Associated Diagnosis Comments MRI LUMBAR SPINE WITHOUT CONTRAST Routine 07/08/2017 12:13 PM EDT Balance disorder Numbness and tingling of both feet MRI CERVICAL SPINE WO CONTRAST Routine 07/08/2017 12:13 PM EDT Balance disorder Numbness and tingling of both feet documented in this encounter Results * MRI Cervical Spine wo Contrast (Generic) (07/08/2017 12:13 PM EDT) Anatomical Region Laterality Modality C-spine Magnetic Resonan ce Impressions 07/08/2017 4:01 PM EDT Cervical spine: Changes of cervical spondylosis described in detail at individual levels the body the report. Lumbar spine: Degenerative changes in lumbar spine greatest at the L4-5 level and described in detail at individual levels the body the report. Narrative 07/08/2017 4:01 PM EDT EXAMINATION: MRI CERVICAL SPINE WO CONTRAST (GENERIC), MRI LUMBAR SPINE WO CONTRAST (GENERIC) CLINICAL HISTORY: LE numbness and tingling with upgoing toes TECHNIQUE: MRI cervical spine noncontrast MRI lumbar spine noncontrast COMPARISON: None FINDINGS: Cervical spine: There is reversal of normal lordosis in the cervical spine. There is disc degenerative change with disc space narrowing, endplate proliferative and reactive changes greatest at C4-5, C5-6 and to lesser extent C6-7. Vertebral bodies are normal in height. No aggressive marrow lesions. Prevertebral soft tissues are normal. Degenerative changes at C1-C2 articulation the anterior arch of C1 and the dens. Greatest cervical junction is normal. There is no cord signal abnormality on axial T2 sequence. Findings at specific levels: C2-3: No disc protrusion central stenosis or foraminal narrowing. C3-4: There is a broad disc protrusion which appears to contact and very mildly flattening the ventral margin of the cord. Uncovertebral joint hypertrophic change and facet arthropathy with moderate to severe bilateral foraminal narrowing. C4-5: Moderate central stenosis with posterior disc osteophyte complex posterior bony ridge. Uncovertebral joint hypertrophic changes with facet arthropathy with severe bilateral foraminal narrowing. C5-6: Moderate right and moderate to severe left foraminal narrowing with uncovertebral joint facet arthropathy. Moderate central stenosis with posterior disc osteophyte complex and posterior bony ridge which appears to contact and mildly flattening the cord. C6-7: Moderate central stenosis with posterior disc osteophyte complex and superimposed broad central disc protrusion which appears to contact but not deforming the cord. There is moderate right and moderate left foraminal narrowing. C7-T1: No disc protrusion or central stenosis. Mild to moderate left foraminal narrowing due to facet arthropathy. Lumbar spine: There is diffuse disc degenerative change with disc space narrowing and decreased signal intensity in T2 sequence and endplate proliferative and reactive changes greatest at L4-5. Vertebral bodies are normal in height. No pars defects. Conus demonstrates normal size shape and signal intensity and terminates appropriately at L1. There is no abdominal aortic aneurysm. Incidental note is made of diverticulosis of the sigmoid:. No aggressive marrow lesions. Findings at specific levels: T12-L1: Mild overall central stenosis secondary to endplate proliferative change and a mild central disc protrusion as well as facet arthropathy with buckling of ligamentum flavum. There is mild right foraminal narrowing. L1-2: There is a mild annular bulge with superimposed left subarticular zone disc extrusion extending caudally narrowing the left subarticular zone on image 9 of series 10 and image 8 of series 8. There is moderate left and mild right foraminal narrowing due to asymmetric endplate proliferative change and facet arthropathy. L2-3: Moderate central stenosis secondary to mild retrolisthesis, endplate proliferative change and facet arthropathy. Moderate bilateral foraminal narrowing. L3-4: There is endplate proliferative change and facet arthropathy with narrowing of the subarticular zone bilaterally and moderate overall canal stenosis. There is moderate bilateral foraminal narrowing. L4-5: There is endplate proliferative change diffusely with facet arthropathy and buckling of ligamentum flavum, left greater than right with moderate to severe central stenosis and marked narrowing of the left greater than right subarticular zone. Moderate bilateral foraminal narrowing present. L5-S1: There is facet arthropathy right greater than left. There is a mild left foraminal disc protrusion. Mild right and moderate left foraminal narrowing present.. Procedure Note Iván Arzola MD - 07/08/2017 EXAMINATION: MRI CERVICAL SPINE WO CONTRAST (GENERIC), MRI LUMBAR SPINEWO CONTRAST (GENERIC) CLINICAL HISTORY: LE numbness and tingling with upgoing toes TECHNIQUE: MRI cervical spine noncontrast MRI lumbar spine noncontrast COMPARISON: None FINDINGS: Cervical spine: There is reversal of normal lordosis in the cervicalspine. There is disc degenerative change with disc space narrowing, endplate proliferative and reactive changes greatest at C4-5, C5-6 and to lesserextent C6-7. Vertebral bodies are normal in height. No aggressive marrowlesions. Prevertebral soft tissues are normal. Degenerative changes at C1-[id number] the anterior arch of C1 and the dens. Greatest cervical junction isnormal. There is no cord signal abnormality on axial T2 sequence. Findings at specific levels: C2-3: No disc protrusion central stenosisor foraminal narrowing. C3-4: There is a broad disc protrusion which appears to contact and verymildly flattening the ventral margin of the cord. Uncovertebral jointhypertrophic change and facet arthropathy with moderate to severe bilateral foraminal narrowing. C4-5: Moderate central stenosis with posterior disc osteophyte complexposterior bony ridge. Uncovertebral joint hypertrophic changes with facetarthropathy with severe bilateral foraminal narrowing. C5-6: Moderate right and moderate to severe left foraminal narrowingwith uncovertebral joint facet arthropathy. Moderate central stenosis withposterior disc osteophyte complex and posterior bony ridge which appears to contactand mildly flattening the cord. C6-7: Moderate central stenosis with posterior disc osteophyte complexand superimposed broad central disc protrusion which appears to contact butnot deforming the cord. There is moderate right and moderate left foraminal narrowing. C7-T1: No disc protrusion or central stenosis. Mild to moderate leftforaminal narrowing due to facet arthropathy. Lumbar spine: There is diffuse disc degenerative change with disc space narrowing and decreased signal intensity in T2 sequence and endplate proliferative and reactive changes greatest at L4-5. Vertebral bodies arenormal in height. No pars defects. Conus demonstrates normal size shape andsignal intensity and terminates appropriately at L1. There is no abdominalaortic aneurysm. Incidental note is made of diverticulosis of the sigmoid:. No aggressive marrow lesions. Findings at specific levels: T12-L1: Mild overall central stenosissecondary to endplate proliferative change and a mild central disc protrusion as wellas facet arthropathy with buckling of ligamentum flavum. There is mildright foraminal narrowing. L1-2: There is a mild annular bulge with superimposed left subarticularzone disc extrusion extending caudally narrowing the left subarticular zone onimage 9 of series 10 and image 8 of series 8. There is moderate left and mildright foraminal narrowing due to asymmetric endplate proliferative change andfacet arthropathy. L2-3: Moderate central stenosis secondary to mild retrolisthesis,endplate proliferative change and facet arthropathy. Moderate bilateral foraminal narrowing. L3-4: There is endplate proliferative change and facet arthropathy with narrowing of the subarticular zone bilaterally and moderate overallcanal stenosis. There is moderate bilateral foraminal narrowing. L4-5: There is endplate proliferative change diffusely with facetarthropathy and buckling of ligamentum flavum, left greater than right with moderateto severe central stenosis and marked narrowing of the left greater thanright subarticular zone. Moderate bilateral foraminal narrowing present. L5-S1: There is facet arthropathy right greater than left. There is a mildleft foraminal disc protrusion. Mild right and moderate left foraminalnarrowing present.. IMPRESSION Cervical spine: Changes of cervical spondylosis described in detail at individual levels the body the report. Lumbar spine: Degenerative changes in lumbar spine greatest at the L4-5level and described in detail at individual levels the body the report. Laura Chavez MD [facility] MRI ORDERABLES * MRI Lumbar Spine wo Contrast (Generic) (07/08/2017 12:13 PM EDT) Anatomical Region Laterality Modality L-spine Magnetic Resonan ce Impressions 07/08/2017 4:01 PM EDT Cervical spine: Changes of cervical spondylosis described in detail at individual levels the body the report. Lumbar spine: Degenerative changes in lumbar spine greatest at the L4-5 level and described in detail at individual levels the body the report. Narrative 07/08/2017 4:01 PM EDT EXAMINATION: MRI CERVICAL SPINE WO CONTRAST (GENERIC), MRI LUMBAR SPINE WO CONTRAST (GENERIC) CLINICAL HISTORY: LE numbness and tingling with upgoing toes TECHNIQUE: MRI cervical spine noncontrast MRI lumbar spine noncontrast COMPARISON: None FINDINGS: Cervical spine: There is reversal of normal lordosis in the cervical spine. There is disc degenerative change with disc space narrowing, endplate proliferative and reactive changes greatest at C4-5, C5-6 and to lesser extent C6-7. Vertebral bodies are normal in height. No aggressive marrow lesions. Prevertebral soft tissues are normal. Degenerative changes at C1-C2 articulation the anterior arch of C1 and the dens. Greatest cervical junction is normal. There is no cord signal abnormality on axial T2 sequence. Findings at specific levels: C2-3: No disc protrusion central stenosis or foraminal narrowing. C3-4: There is a broad disc protrusion which appears to contact and very mildly flattening the ventral margin of the cord. Uncovertebral joint hypertrophic change and facet arthropathy with moderate to severe bilateral foraminal narrowing. C4-5: Moderate central stenosis with posterior disc osteophyte complex posterior bony ridge. Uncovertebral joint hypertrophic changes with facet arthropathy with severe bilateral foraminal narrowing. C5-6: Moderate right and moderate to severe left foraminal narrowing with uncovertebral joint facet arthropathy. Moderate central stenosis with posterior disc osteophyte complex and posterior bony ridge which appears to contact and mildly flattening the cord. C6-7: Moderate central stenosis with posterior disc osteophyte complex and superimposed broad central disc protrusion which appears to contact but not deforming the cord. There is moderate right and moderate left foraminal narrowing. C7-T1: No disc protrusion or central stenosis. Mild to moderate left foraminal narrowing due to facet arthropathy. Lumbar spine: There is diffuse disc degenerative change with disc space narrowing and decreased signal intensity in T2 sequence and endplate proliferative and reactive changes greatest at L4-5. Vertebral bodies are normal in height. No pars defects. Conus demonstrates normal size shape and signal intensity and terminates appropriately at L1. There is no abdominal aortic aneurysm. Incidental note is made of diverticulosis of the sigmoid:. No aggressive marrow lesions. Findings at specific levels: T12-L1: Mild overall central stenosis secondary to endplate proliferative change and a mild central disc protrusion as well as facet arthropathy with buckling of ligamentum flavum. There is mild right foraminal narrowing. L1-2: There is a mild annular bulge with superimposed left subarticular zone disc extrusion extending caudally narrowing the left subarticular zone on image 9 of series 10 and image 8 of series 8. There is moderate left and mild right foraminal narrowing due to asymmetric endplate proliferative change and facet arthropathy. L2-3: Moderate central stenosis secondary to mild retrolisthesis, endplate proliferative change and facet arthropathy. Moderate bilateral foraminal narrowing. L3-4: There is endplate proliferative change and facet arthropathy with narrowing of the subarticular zone bilaterally and moderate overall canal stenosis. There is moderate bilateral foraminal narrowing. L4-5: There is endplate proliferative change diffusely with facet arthropathy and buckling of ligamentum flavum, left greater than right with moderate to severe central stenosis and marked narrowing of the left greater than right subarticular zone. Moderate bilateral foraminal narrowing present. L5-S1: There is facet arthropathy right greater than left. There is a mild left foraminal disc protrusion. Mild right and moderate left foraminal narrowing present.. Procedure Note Iván Arzola MD - 07/08/2017 EXAMINATION: MRI CERVICAL SPINE WO CONTRAST (GENERIC), MRI LUMBAR SPINEWO CONTRAST (GENERIC) CLINICAL HISTORY: LE numbness and tingling with upgoing toes TECHNIQUE: MRI cervical spine noncontrast MRI lumbar spine noncontrast COMPARISON: None FINDINGS: Cervical spine: There is reversal of normal lordosis in the cervicalspine. There is disc degenerative change with disc space narrowing, endplate proliferative and reactive changes greatest at C4-5, C5-6 and to lesserextent C6-7. Vertebral bodies are normal in height. No aggressive marrowlesions. Prevertebral soft tissues are normal. Degenerative changes at C1-H0bicubfpvstkh the anterior arch of C1 and the dens. Greatest cervical junction isnormal. There is no cord signal abnormality on axial T2 sequence. Findings at specific levels: C2-3: No disc protrusion central stenosisor foraminal narrowing. C3-4: There is a broad disc protrusion which appears to contact and verymildly flattening the ventral margin of the cord. Uncovertebral jointhypertrophic change and facet arthropathy with moderate to severe bilateral foraminal narrowing. C4-5: Moderate central stenosis with posterior disc osteophyte complexposterior bony ridge. Uncovertebral joint hypertrophic changes with facetarthropathy with severe bilateral foraminal narrowing. C5-6: Moderate right and moderate to severe left foraminal narrowingwith uncovertebral joint facet arthropathy. Moderate central stenosis withposterior disc osteophyte complex and posterior bony ridge which appears to contactand mildly flattening the cord. C6-7: Moderate central stenosis with posterior disc osteophyte complexand superimposed broad central disc protrusion which appears to contact butnot deforming the cord. There is moderate right and moderate left foraminal narrowing. C7-T1: No disc protrusion or central stenosis. Mild to moderate leftforaminal narrowing due to facet arthropathy. Lumbar spine: There is diffuse disc degenerative change with disc space narrowing and decreased signal intensity in T2 sequence and endplate proliferative and reactive changes greatest at L4-5. Vertebral bodies arenormal in height. No pars defects. Conus demonstrates normal size shape andsignal intensity and terminates appropriately at L1. There is no abdominalaortic aneurysm. Incidental note is made of diverticulosis of the sigmoid:. No aggressive marrow lesions. Findings at specific levels: T12-L1: Mild overall central stenosissecondary to endplate proliferative change and a mild central disc protrusion as wellas facet arthropathy with buckling of ligamentum flavum. There is mildright foraminal narrowing. L1-2: There is a mild annular bulge with superimposed left subarticularzone disc extrusion extending caudally narrowing the left subarticular zone onimage 9 of series 10 and image 8 of series 8. There is moderate left and mildright foraminal narrowing due to asymmetric endplate proliferative change andfacet arthropathy. L2-3: Moderate central stenosis secondary to mild retrolisthesis,endplate proliferative change and facet arthropathy. Moderate bilateral foraminal narrowing. L3-4: There is endplate proliferative change and facet arthropathy with narrowing of the subarticular zone bilaterally and moderate overallcanal stenosis. There is moderate bilateral foraminal narrowing. L4-5: There is endplate proliferative change diffusely with facetarthropathy and buckling of ligamentum flavum, left greater than right with moderateto severe central stenosis and marked narrowing of the left greater thanright subarticular zone. Moderate bilateral foraminal narrowing present. L5-S1: There is facet arthropathy right greater than left. There is a mildleft foraminal disc protrusion. Mild right and moderate left foraminalnarrowing present.. IMPRESSION Cervical spine: Changes of cervical spondylosis described in detail at individual levels the body the report. Lumbar spine: Degenerative changes in lumbar spine greatest at the L4-5level and described in detail at individual levels the body the report. Laura Chavez MD [facility] MRI ORDERABLES documented in this encounter Visit Diagnoses Diagnosis Balance disorder Other symptoms involving nervous and musculoskeletal systems Numbness and tingling of both feet documented in this encounter Care Teams Lump Machine Operator Relationship Specialty Start Date End Date González Luis DO [address] [place] [address] PCP - General Family Medicine 04/23/17 documented as of this encounter
--- OUTSIDE RECORDS SUMMARY | 2024-05-20 02:50 | XMS_ITS | Encounter Summary ---
Author Organization [facility] Address [address] [place] [address] Care Team Providers Care Cloth Brushing And Sueding Supervisor Name Role Phone González Luis DO Primary Care Provider [phone] Encounter Details Date Type Department Care Team (Late st Contact Info) Description 12/12/2020 Lab Requisition [facility]ology [facility] Laboratory Medicine - [address] [id number] Outr Resulting Lab, Provider Social History Tobacco Use Types Packs/Day Years Used Date Smoking Tobacco: Never Assessed Interpersonal Safety Answer Date Record ed Physically Hurt Never 05/20/2020 Verbally Threaten Not on file 05/20/2020 Sex and Gender Information Value Date Recorded Sex Assigned at Not on file Gender Identity Not on file Sexual Orientation Not on file documented as of this encounter Plan of Treatment Not on file documented as of this encounter Procedures Procedure Name Priority Date/Time Associated Diagnosis Comments PSA TOTAL, DIAGNOSTIC Routine 12/12/2020 9:17 EST documented in this encounter Results * PSA TOTAL, DIAGNOSTIC (12/12/2020 9:17 EST) PSA 3.2 0.0 - 6.5 ng/mL 12/12/2020 21:55 EST [facility] Blood VENOUS BLOOD / Unknown 12/12/2020 9:17 EST 12/12/2020 20:50 EST Narrative [facility] - 12/12/2020 21:55 EST NOTE: Serum PSA concentration should not be interpreted as absolute evidence for the presence or absence of malignant disease. Assayed on Siemens ADVIA Centaur XPT using chemiluminescent technology.??Values obtained by using different assay methods cannot be used interchangeably. Provider Outr Resulting Lab CHEMISTRY & BLOOD GAS ORDERABLES [facility] [address] [place] [address] documented in this encounter Visit Diagnoses Not on filedocumented in this encounter Care Teams Cloth Brushing And Sueding Supervisor Relationship Specialty Start Date End Date González Luis DO [address] [place] [id number] PCP - General 09/23/17 documented as of this encounter
--- OUTSIDE RECORDS SUMMARY | 2024-05-20 02:50 | XMS_ITS | Encounter Summary ---
Author Organization [facility] Address [address] [place] [address] Care Team Providers Care Tick Inspector Name Role Phone Unknown, Provider Primary Care Provider [phone] Encounter Details Date Type Department Care Team (Late st Contact Info) Description 09/18/2017 Results Only [facility] [phone] González Luis, DO [address] [place], [place] [address] Social History Tobacco Use Types Packs/Day Years Used Date Smoking Tobacco: Never Assessed Sex and Gender Information Value Date Recorded Sex Assigned at Not on file Gender Identity Not on file Sexual Orientation Not on file documented as of this encounter Plan of Treatment Not on file documented as of this encounter Procedures Procedure Name Priority Date/Time Associated Diagnosis Comments SURGICAL PATHOLOGY Routine 09/18/2017 9:23 EST documented in this encounter Results * SURGICAL PATHOLOGY (09/18/2017 9:23 EST) Pathology Report: SURGICAL PATHOLOGY REPORT Reports generated via electronic interface contain original data; however they are lacking the format of the original report. Caution should be taken when reading/interpret ing unformatted reports. Name: ? TOIVALERIANO ? Accession #: ? [id number] ? : ? 1945 (Age: 72) ??M ? Collect Date: ? 09/18/2017 ? Location: ? [facility] ? Receive Date: ? 09/19/2017 ? Provider: GONZÁLEZ LUIS DO Copy to: ? Final Pathologic Diagnosis: SKIN OF FOREHEAD, PUNCH BIOPSY: - Seborrheic keratosis, pigmented. Microscopic Description: The stratum corneum is thickened by compact and basketweave orthokeratosis with formation of horn pseudocysts. ??The epidermis is acanthotic with formation of broad and anastomosing trabeculae. ??The trabeculae are composed of basaloid keratinocytes with round uniform nuclei. ??The keratinocytes have a variable amount of melanin pigment. ??(Dr. Vaz)/ranjeet Document reviewed and electronically signed by: JANESSA VAZ MD Report ??Date: 09/22/2017 21:06 By the signature above, the attending physician certifies that he/she has personally conducted a gross and/or microscopic examination of the described specimens and rendered or confirmed the above diagnosis. Specimen(s) Received: 2.0 mm punch forehead Clinical History: Pigmented nevus Gross Description: ? Received in formalin labelled with proper patient identification (initials M, J) and forehead is a punch biopsy of white skin (0.2 cm in diameter and 0.1 cm in thickness). Submitted intact in 1. Santy Cage 09/21/2017 10:17 AM End of Report [facility] 09/18/2017 9:23 EST 09/19/2017 9:23 EST González Luis DO PATHOLOGY ORDERABL ES [facility] [address] [place] [address] documented in this encounter Visit Diagnoses Not on filedocumented in this encounter Care Teams Tick Inspector Relationship Specialty Start Date End Date Unknown, Provider, PCP - General 09/09/15 09/22/17 documented as of this encounter
--- OUTSIDE RECORDS SUMMARY | 2024-05-20 02:50 | XMS_ITS | Referral Summary ---
Author Organization [facility] Address [address] [place] [address] Care Team Providers Care Freezer Unloader Name Role Phone González Luis DO Primary Care Provider [phone] Social History Tobacco Use Types Packs/Day Years Used Date Smoking Tobacco: Never Assessed Interpersonal Safety Answer Date Record ed Physically Hurt Never 05/20/2020 Verbally Threaten Not on file 05/20/2020 Sex and Gender Information Value Date Recorded Sex Assigned at Not on file Gender Identity Not on file Sexual Orientation Not on file Plan of Treatment Not on file Care Teams Freezer Unloader Relationship Specialty Start Date End Date González Luis DO [address] [place] [address] PCP - General 09/23/17
--- OUTSIDE RECORDS SUMMARY | 2024-05-20 02:50 | XMS_ITS | Encounter Summary ---
Author Organization [facility] Address [facility] [place] [address] Care Team Providers Care Quiller Runner Name Role Phone González Luis DO Primary Care Provider Reason for Referral * Physical Therapy (Routine) - Closed Specialty Diagnoses / Procedures Referred By Contquinten t Referred To Contact Physical Therapy Diagnoses CMT (Awsfpcg-Zpgen-Cxvzz disease) Laura Chavez MD [facility] [place] [address] Cherelle Lewis, PT [facility] PHYSICAL MEDICINE & [place] [address] Referral ID Status Reason Start Date Expiration Date V isits Requested Visits Authorized [id number] Closed Evaluate and Treat 08/18/2017 08/18/2018 1 1 * Diagnostic Test (Routine) - Closed Specialty Diagnoses / Procedures Referred By Contquinten t Referred To Contact Radiology Diagnoses Upper motor neuron disease Procedures MRI Brain wo Contrast Laura Chavez MD [facility] [place] [place] [address] [place] [address] Referral ID Status Reason Start Date Expiration Date V isits Requested Visits Authorized [id number] Closed Specialty Service Requested 08/18/2017 08/18/2018 1 1 * Diagnostic Test (Routine) - Specialty Diagnoses / Procedures Referred By Contac t Referred To Contact Radiology Diagnoses Upper motor neuron disease Procedures MRI Thoracic Spine wo Contrast (Generic) Laura Chavez MD [facility] [place] [address] [place] [address] Referral ID Status Reason Start Date Expiration Date Visits Requested Visits Authorized [id number] Specialty Service Requested 08/18/2017 08/18/2018 1 1 Encounter Details Date Type Department Care Team (Late st Contact Info) Description 08/18/2017 4:30 PM EDT Office [place] [address] Laura Chavez MD [facility] [place] [address] CMT (Mpnybmw-Igykp-Lyuou disease); Upper motor neuron disease Social History Tobacco Use Types Packs/Day [...] Sign Reading Time Taken Comments Blood Pressure 120/76 08/18/2017 4:13 PM EDT Pulse - - Temperature - - Respiratory Rate - - Oxygen Saturation - - Inhaled Oxygen Concentration - - Weight 99.8 kg (220 lb) 08/18/2017 4:13 PM EDT Height 182.9 cm (6') 08/18/2017 4:13 PM EDT Body Mass Index 29.84 08/18/2017 4:13 PM EDT documented in this encounter Progress Notes * Laura Chavez MD - 08/18/2017 4:30 PM EDT Subjective: Juan J Hardin is a 72 y.o. male referred by Dr. Luis in follow up of possible neuropathy. Referral request: evaluate for peripheral neuropathy Since last visit: No significant change in clinical status. MRI cervical/lumbar (06/2017): IMPRESSION Cervical spine: Changes [...] is a 72 y.o. male who presents for evaluation of slowly progressive balance difficulties. This leaves him with a sense of some unsteadiness with his gait although this has not progressedto the point of falls. His clinical examination is relatively benign although he does have slightlybrisk reflexes and an up going toe on the left. Electrophysiologic examination confirms a mild, length-dependent, axonal, sensorimotor neuropathy. Although the neuropathy may be sufficient to explainhis balance difficulties and sensory exam, I would be inclined to image his neck because of the presence of an up going toe on the left. Interestingly his needle EMG was more abnormal than expected based on his nerve conduction abnormalities- this may be related to slowly progressive but ongoing axonal loss or to radiculopathy. The latter interpretation is problematic because of the absence of denervation in a more proximal L5-S1 muscle in the setting of prominent denervation in distal L5-S1 muscles. This may reflect fascicular involvement of the L5 nerve root but would have to represent multi- level degenerative disk disease. This may be expected in the setting of cervical degenerative disk disease but imaging is needed to corroborate this impression. I have recommended imaging of both cervical and lumbar spine with MRI. Dr. Luis has already worked him up well for reversible and important causes of neuropathy. I have however recommended that we send his blood off to [facility] for genetic testing through the research based program that is offered in conjunction with [facility] given an alternate interpretation of the findings is that these represent a longstanding neuropathy. Outside reports reviewed: lab reports and office notes. Patient's medications, allergies, past medical, surgical, social and family histories were reviewedand updated as appropriate. Review of Systems Pertinent items are noted in HPI. Objective: Physical Exam: BP 145/92 mmHg Pulse 80 Ht 152.5 cm (5' 0.05) Wt 84.823 kg (187 lb) BMI 36.47 kg/m2 Exam not repeated today as this [...] EE EF WE WF FA HG Right nt nt nt nt nt nt nt 5 5 Left nt nt nt nt nt nt nt 5 5 [...] Rtoe nt LMM 0 RMM 0 Lknee 4 Rknee 4.5 LDIP2 8 RDIP2 8 LDIP5 nt RDIP5 [...] AJ Plantars Right 1+ 1+ 2 2+ 2* mute Left 2 2 2 2+ 2 up *more difficult to obtain on the [...] muscles. Clinical and radiologic correlation is recommended. Assessment:Juan J Hardin is a 72 y.o. male [...] less affecting by LMN findings. 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 I discussed this with him - he remains concerned about the presence of a Babinski response on the left. It think it is not unreasonable o image the est of his neuraxis to explore other potential [...] wish when/if they develop symptoms of neuropathy. Orders Placed This Encounter Procedures ??? MRI Thoracic Spine wo Contrast (Generic) ??? MRI Brain wo Contrast ??? Referral to Physical Therapy I would like to continue to follow him for changes in his exam. It would not be imprudent to repeatthis electrodiagnostic testing in the setting of progression of weakness out of proportion to what is suspected in a hereditary neuropathy (generally slow), development of bulbar symptoms or weight loss. If these symptoms do not occur, as expected, it would be reasonable to repeat testing in ~1 year in order to gauge for changes in electrophysiologic character. Follow up in 6-12 months or as needed depending on his progression/stability. CAMILLE Horta I spent 40 minutes of face-face time with the patient, with 21 minutes spent in counseling and coordination of care, excluding the time spent in performing electrodiagnostic studies. documented in this encounter Plan of Treatment Upcoming Encounters Date Type Department Care Team (Late st Contact Info) Description 06/13/2024 3:00 PM EDT Office [place] [address] Laura Chavez MD [facility] [place] [address] 12/12/2024 3:30 PM EST Office [place] [address] Laura Chavez MD [facility] [place] [address] Scheduled Referrals Name Type Priority Associated Diagnoses Orde r Schedule Referral to Physical Therapy Outpatient Referral Routine CMT (Avgcujz-Qhxvp-Pjvns disease) Ordered: 08/18/2017 documented as of this encounter Results * MRI Brain wo Contrast (09/03/2017 8:30 PM EST) Anatomical Region Laterality Modality Head Magnetic Resonan ce Impressions 09/03/2017 8:53 PM EST No evidence recent infarct or other acute intracranial abnormality. Narrative 09/03/2017 8:53 PM EST EXAMINATION: MRI BRAIN WO CONTRAST CLINICAL HISTORY: Upper motor neurons signs in setting of LMN; evaluate for white matter changes TECHNIQUE: MR the brain performed without the use of intravenous contrast. COMPARISON: None FINDINGS: The ventricles are normal in size and contour. There is no intracranial mass, mass effect, or shift. There is no restricted diffusion to suggest infarct. Cerebral parenchyma is normal in signal. No focal parenchymal volume loss. The major intracranial flow voids appear normal. Procedure Note Romain Schaefer MD - 09/03/2017 EXAMINATION: MRI BRAIN WO CONTRAST CLINICAL HISTORY: Upper motor neurons signs in setting of LMN; evaluatefor white matter changes TECHNIQUE: MR the brain performed without the use of intravenouscontrast. COMPARISON: None FINDINGS: The ventricles are normal in size and contour. There is no intracranial mass, mass effect, or shift. There is no restricted diffusionto suggest infarct. Cerebral parenchyma is normal in signal. No focalparenchymal volume loss. The major intracranial flow voids appear normal. IMPRESSION No evidence recent infarct or other acute intracranial abnormality. Laura Chavez MD [facility] MRI ORDERABLES * MRI Thoracic Spine wo Contrast (Generic) (09/03/2017 8:30 PM EST) Anatomical Region Laterality Modality T-spine Magnetic Resonan ce Impressions 09/03/2017 8:54 PM EST Thoracic spine degenerative changes. No central canal stenosis or cord signal abnormality. Narrative 09/03/2017 8:54 PM EST EXAMINATION: MRI THORACIC SPINE WO CONTRAST (GENERIC) CLINICAL HISTORY: Upper motor neuron signs in the setting of neuropathy and balance changes TECHNIQUE: MR of the thoracic spine performed without intravenous contrast. COMPARISON: None FINDINGS: Overall thoracic alignment is normal. There is no focal, aggressive appearing marrow lesion. There is no central canal stenosis. Thoracic cord signal appears normal for technique. There are areas of facet degenerative change. Much of the thoracic spine appears to be ankylosed. Procedure Note Romain Schaefer MD - 09/03/2017 EXAMINATION: MRI THORACIC SPINE WO CONTRAST (GENERIC) CLINICAL HISTORY: Upper motor neuron signs in the setting of neuropathyand balance changes TECHNIQUE: MR of the thoracic spine performed without intravenouscontrast. COMPARISON: None FINDINGS: Overall thoracic alignment is normal. There is no focal,aggressive appearing marrow lesion. There is no central canal stenosis. Thoraciccord signal appears normal for technique. There are areas of facetdegenerative change. Much of the thoracic spine appears to be ankylosed. IMPRESSION Thoracic spine degenerative changes. No central canal stenosis or cordsignal abnormality. 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
--- OUTSIDE RECORDS SUMMARY | 2024-05-20 02:50 | XMS_ITS | Encounter Summary ---
Author Organization [facility] [place] [address] Care Team Providers Care Traffic Rate Computer Name Role Phone González Luis DO Primary Care Provider [phone] Reason for Referral * Diagnostic Test (Routine) - Closed Specialty Diagnoses / Procedures Referred By Contac t Referred To Contact Radiology Diagnoses Upper motor neuron disease Procedures MRI Brain wo Contrast Laura Chavez MD [facility] [place] [address] [place] [address] Referral ID Status Reason Start Date Expiration Date V isits Requested Visits Authorized [id number] Closed Specialty Service Requested 08/18/2017 08/18/2018 1 1 * Diagnostic Test (Routine) - Specialty Diagnoses / Procedures Referred By Contac t Referred To Contact Radiology Diagnoses Upper motor neuron disease Procedures MRI Thoracic Spine wo Contrast (Generic) Laura Chavez MD [facility] [place] [address] [place] [address] Referral ID Status Reason Start Date Expiration Date Visits Requested Visits Authorized [id number] Specialty Service Requested 08/18/2017 08/18/2018 1 1 Reason for Visit * Diagnostic Test (Routine) - Closed Specialty Diagnoses / Procedures Referred By Contac t Referred To Contact Radiology Diagnoses Upper motor neuron disease Procedures MRI Brain wo Contrast Laura Chavez MD [facility] [place] [address] [facility] [place] [address] Referral ID Status Reason Start Date Expiration Date V isits Requested Visits Authorized [id number] Closed Specialty Service Requested 08/18/2017 08/18/2018 1 1 Encounter Details Date Type Department Care Team (Latest Contact Info) Description 09/03/2017 6:48 PM EST - 09/03/2017 11:59 PM EST Hospital [place] [address] Laura Chavez MD [facility] [place] [address] Upper motor neuron disease Discharge Disposition: Home Social History Tobacco Use [...] 3:00 PM EDT [place] [address] Laura Chavez MD [facility] [place] [address] 12/12/2024 3:30 PM EST [place] [address] Laura Chavez MD [facility] [place] [address] documented as of this encounter Procedures Procedure Name Priority Date/Time Associated Diagnosis Comments MRI THORACIC SPINE WITHOUT CONTRAST Routine 09/03/2017 8:30 PM EST Upper motor neuron disease MRI BRAIN WO CONTRAST Routine 09/03/2017 8:30 PM EST Upper motor neuron disease documented in this encounter Results * MRI Brain wo [...] other acute intracranial abnormality. Laura Chavez MD [facility] MRI ORDERABLES * MRI Thoracic Spine wo [...] No central canal stenosis or cordsignal abnormality. 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
--- OUTSIDE RECORDS SUMMARY | 2024-05-20 02:50 | XMS_ITS | Encounter Summary ---
Author Organization [facility] Address [facility] [place] [address] Care Team Providers Care Card Assembler Name Role Phone González Luis DO Primary Care Provider Encounter Details Date Type Department Care Team (Late st Contact Info) Description 07/06/2017 Orders [place] [phone] Jacobo Dominguez Social History Tobacco Use Types Packs/Day Years [...] 3:00 PM EDT Office [place] [phone] Laura Chavez MD [facility] [place] [address] 12/12/2024 3:30 PM EST Office [place] [phone] Laura Chavez MD [facility] [place] [address] documented as of this encounter Visit Diagnoses Not on filedocumented in this encounter Care Teams Card Assembler Relationship Specialty Start Date End Date González Luis DO [address] [place] [address] PCP - General Family Medicine 04/23/17 documented as of this encounter
--- OUTSIDE RECORDS SUMMARY | 2024-05-20 02:50 | XMS_ITS | Clinical Summary ---
Author Organization [facility] Address [address] [place] [address] Care Team Providers Care Heading Matcher And Assembler Name Role Phone González Luis DO Primary Care Provider [phone] Social History Tobacco Use Types Packs/Day Years Used Date Smoking Tobacco: Never Assessed Interpersonal Safety Answer Date Record ed Physically Hurt Never 05/20/2020 Verbally Threaten Not on file 05/20/2020 Sex and Gender Information Value Date Recorded Sex Assigned at Not on file Gender Identity Not on file Sexual Orientation Not on file Plan of Treatment Health Maintenance Due Date Last Done Comments Hepatitis C Screen 1945 RSV Immunization ( o r 60+ Years) (1 - 1-dose 60+ series) 2005 Fall Risk Screening 2010 COVID-19 Vaccine (2022- season) 2023 Care Teams Heading Matcher And Assembler Relationship Specialty Start Date End Date González Luis DO [address] [place] [address] PCP - General 09/23/17
--- OUTSIDE RECORDS SUMMARY | 2024-05-20 02:50 | XMS_ITS | Encounter Summary ---
Author Organization [facility] [place] [address] Care Team Providers Care Game Advisor Name Role Phone González Luis DO Primary Care Provider Reason for Referral * Diagnostic Test (Routine) - Specialty Diagnoses / Procedures Referred By Contac t Referred To Contact Radiology Diagnoses Balance disorder Numbness and tingling of both feet Procedures MRI Cervical Spine wo Contrast (Generic) Laura Obrien MD [facility] [place] [address] [place] [address] Referral ID Status Reason Start Date Expiration Date Visits Requested Visits Authorized Specialty Service Requested 07/06/2017 07/06/2018 1 1 * Diagnostic Test (Routine) - Closed Specialty Diagnoses / Procedures Referred By Contac t Referred To Contact Radiology Diagnoses Balance disorder Numbness and tingling of both feet Procedures MRI Lumbar Spine wo Contrast (Generic) Laura Obrien MD [facility] [place] [address] [place] [address] Referral ID Status Reason Start Date Expiration Date V isits Requested Visits Authorized Closed Specialty Service Requested 07/06/2017 07/06/2018 1 1 Reason for Visit * Consultation (Routine) - Closed Specialty Diagnoses / Procedures Referred By Radha macdonald Referred To Contact Neurology Diagnoses peripheral polyneuropathy TobyGonzález gillette, DO [address] [place] [address] [facility] [address] [place] [address] Referral ID Status Reason Start Date Expiration Date V isits Requested Visits Authorized [id number] Closed Consult, Test & Treat Connection [facility] 04/27/2017 04/27/2018 1 1 Encounter Details Date Type Department Care Team (Late st Contact Info) Description 07/06/2017 8:00 AM EDT Procedure [place] [address] [facility] [place] [place] [address] Balance disorder; Numbness and tingling of both feet Social History Tobacco Use Types Packs/Day Years [...] Sign Reading Time Taken Comments Blood Pressure 186/76 07/06/2017 8:09 AM EDT Pulse 47 07/06/2017 8:09 AM EDT Temperature - - Respiratory Rate - - Oxygen Saturation - - Inhaled Oxygen Concentration - - Weight 105.9 kg (233 lb 6.4 oz) 07/06/2017 8:09 AM EDT Height 182.9 cm (6') 07/06/2017 8:09 AM EDT repo rted Body Mass Index 31.65 07/06/2017 8:09 AM EDT documented in this encounter Progress Notes * Laura Obrien MD - 07/06/2017 8:00 AM EDT Subjective: Juan J Hardin is a 72 y.o. male referred by Dr. Luis for evaluation of possible neuropathy. 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 Outside reports reviewed: lab reports and office notes. Patient's medications, allergies, past medical, surgical, social and family histories were reviewedand updated as appropriate. Review of Systems Pertinent items are noted in HPI. Objective: Physical Exam: BP 145/92 mmHg Pulse 80 Ht 152.5 cm (5' 0.05) Wt 84.823 kg (187 lb) BMI 36.47 kg/m2 Appearance: The patient is a healthy-appearing male who appears of stated age and comes to his visit unaccompanied. he appears well developed and well nourished and requires no assistive devices for walking. Extremities: no edema, feet are high arched without varus deformity or markedly thinned ankles; color and temperature symmetric and normal but he has areas of well healing injury to the medioplantar aspect of the left foot and plantar aspect [...] recommended. Assessment: Juan J Hardin is a 72 y.o. male who presents for evaluation of slowly progressive balance difficulties. This leaves him with a sense of some unsteadiness with his gait although this has not progressed to the point of falls. His clinical examination is relatively benign although he does have slightly brisk reflexes and an up going toe on the left. Electrophysiologic examination confirmsa mild, length-dependent, axonal, sensorimotor neuropathy. Although the neuropathy may be sufficient to explain his balance difficulties and sensory exam, I would [...] that we send his blood off to [facility] for genetic testing through the research based program that is offered in conjunction with [facility] given an alternate interpretation of the findings is that these represent a longstanding neuropathy. Orders Placed This Encounter Procedures ??? MRI Lumbar Spine wo Contrast (Generic) ??? MRI Cervical Spine wo Contrast (Generic) ??? Protein Electrophoresis, serum ??? Methylmalonic acid, serum ??? Miscellaneous Lab request ??? Immunoglobulins, Quantitative ??? Immunofixation Electrophoresis ??? [facility] Follow up after MRI testing to review genetic test results and MRI findings. LAURA OBRIEN I spent 40 minutes of face-face time with the patient, with 21 minutes spent in counseling and coordination of care, excluding the time spent in performing electrodiagnostic studies. documented in this encounter Plan of Treatment Upcoming Encounters Date Type Department Care Team (Late st Contact Info) Description 06/13/2024 3:00 PM EDT [place] [address] [facility] [place] [address] 12/12/2024 3:30 PM EST [place] [address] [facility] [place] [place] [address] documented as of this encounter Procedures Procedure Name Priority Date/Time Associated Diagnosis Comments MISCELLANEOUS LAB REQUEST Routine 07/06/2017 11:03 AM EDT Balance disorder Numbness and tingling of both feet IMMUNOGLOBULINS, QUANTITATIVE Routine 07/06/2017 11:03 AM EDT IMMUNOFIXATION ELECTROPHORESIS Routine 07/06/2017 11:03 AM EDT METHYLMALONIC ACID, SERUM Routine 07/06/2017 11:03 AM EDT Balance disorder Numbness and tingling of both feet PROTEIN ELECTROPHORESIS, SERUM Routine 07/06/2017 11:03 AM EDT Balance disorder Numbness and tingling of both feet MISC SENDOUT Routine 07/06/2017 11:00 AM EDT documented in this encounter Results * MRI [...] soft tissues are normal. Degenerative changes at [id number] the anterior arch of C1 and the [...] individual levels the body the report. Laura Obrien MD IMG MRI ORDERABLES * MRI Lumbar Spine wo [...] soft tissues are normal. Degenerative changes at [id number] the anterior arch of C1 and the [...] individual levels the body the report. Laura Obrien MD Don MRI ORDERABLES * Immunofixation Electrophoresis (07/06/2017 11:03 AM EDT) JUDE See Note [facility] Comment: JUDE shows no evidence of a monoclonal immunoglobulin. Alex Brink MD [facility] Pathology 07/06/17 Please see scanned report in Chart Review under the [facility] Laboratory Heading. Blood specimen (specimen) Venous Draw / Unknown 07/06/2017 11:03 AM EDT 07/06/2017 11:31 AM EDT Narrative Resulting Agency Comment Spec In Lab Laura Obrien MD CHEMISTRY ORDERABLE S Performing Organization Address City/[facility]/ZIP Co de Phone Number [facility] [place] [address] * Immunoglobulins, Quantitative (07/06/2017 11:03 AM EDT) IgG 802 700 - 1,600 mg/dL [facility] IgA 175 70 - 400 mg/dL [facility] IgM 150 40 - 230 mg/dL [facility] Blood specimen (specimen) Venous Draw / Unknown 07/06/2017 11:03 AM EDT 07/06/2017 11:31 AM EDT Narrative Resulting Agency Comment Spec In Lab Laura Obrien MD CHEMISTRY ORDERABLE S Performing Organization Address [facility] Co de Phone Number [facility] [place] [address] * Miscellaneous Lab request (07/06/2017 11:03 AM EDT) Misc Lab Result Request received in lab. [facility] Blood specimen (specimen) 07/06/2017 11:03 AM EDT 07/06/2017 11:22 AM EDT Narrative Resulting Agency Comment Spec In Lab Laura Obrien MD HEMATOLOGY ORDERABL ES Performing Organization Address [facility] Co de Phone Number [facility] [place] [address] * Methylmalonic acid, serum (07/06/2017 11:03 AM EDT) Methylmalonic Acid 0.16 <=0.40 nmol/mL [facility] Comment: ADDITIONAL INFORMATION This test was developed and its performance characteristics determined by [facility] in a manner consistent with CLIA requirements. This test has not been cleared or approved by the U.S. Food and Drug Administration. Test Performed by: [facility] - [address] [address] Blood specimen (specimen) 07/06/2017 11:03 AM EDT 07/06/2017 1:10 PM EDT Narrative Resulting Agency Comment Spec In Lab Laura Obrien MD CHEMISTRY ORDERABLE S Performing Organization Address City/[facility] Co de Phone Number [facility] [place] [address] * Protein Electrophoresis, serum (07/06/2017 11:03 AM EDT) Total Prot Elec 6.6 6.1 - 8.0 gm/dL [facility] Albumin Elect 4.36 3.60 - 6.00 gm/dL [facility] Alpha1-Globul in 0.18 0.10 - 0.30 gm/dL [facility] Alpha2-Globul in 0.63 0.40 - 0.90 gm/dL [facility] Beta Globulin 0.69 0.50 - 1.00 gm/dL [facility] Gamma Globulin 0.74 0.50 - 1.30 gm/dL [facility] M1 Band Comments Below [facility] SPEP Comments See Note [facility] Comment:JUDE to be performed per MD request. Blood specimen (specimen) 07/06/2017 11:03 AM EDT 07/06/2017 11:22 AM EDT Narrative Resulting Agency Comment Spec In Lab Laura Obrien MD CHEMISTRY ORDERABLE S Performing Organization Address City/[facility] Co de Phone Number [facility] [place] [address] * [facility] (07/06/2017 11:00 AM EDT) [facility] See Note [facility] Comment: The ordered test is: Comprehensive Neuropathies Panel [facility], [address] [place] [id number] See Scanned Report. Specimen of unknown material (specimen) Other / Unknown 07/06/2017 11:00 AM EDT 07/06/2017 11:42 AM EDT Laura Obrien MD [place] [address] documented in this encounter Visit Diagnoses Diagnosis Balance disorder Other symptoms involving nervous and musculoskeletal systems Numbness and tingling of both feet Balance disorder Other symptoms involving nervous and musculoskeletal systems Numbness and tingling of both feet documented in this encounter Care Teams Game Advisor Relationship Specialty Start Date End Date González Luis DO [address] [place] [address] PCP - General Family Medicine 04/23/17 documented as of this encounter
[2024-05-20 09:17] LABS: HCT 49.2 % (40.0-50.0); HGB 16.3 g/dL (13.5-17.5); MCH 30.9 pg (27.0-33.0); MCHC 33.1 % (32.0-36.0); MCV 93 fL (80-95); MPV 11.4 fL (8.0-11.0); Platelet Count 149 10^3/uL (130-400); RBC 5.27 10^6/uL (4.36-5.78); RDW 12.8 % (11.8-14.1)
[2024-05-20 10:02] LABS: ALT 23 U/L (16-63); AST 23 U/L (15-37); Albumin 3.6 g/dL (3.4-5.0); Alkaline Phosphatase 63 U/L (46-116); Anion Gap 8.4 mmol/L (3-11); BUN 18 mg/dL (7-18); Bilirubin, Total 0.57 mg/dL (0.2-1.0); CO2 26.6 mmol/L (21.0-32.0); Calcium 9.2 mg/dL (8.5-10.1); Chloride 106 mmol/L (98-107); Estimated GFR 76.56 (mL/min/1.73m2); Glucose 106 mg/dL (74-106); Potassium 4.1 mmol/L (3.5-5.1); Sodium 141 mmol/L (136-145); TSH (W/Ref FT4) 3.21 uIU/mL (0.36-3.74); Total Protein 7.1 g/dL (6.4-8.2)
== END 2024-05-20 02:29 | disposition home or self-care (01) ==
PROVIDERS: PCP Family Medicine; Visit Provider Family Medicine
DX: I10 Essential (primary) hypertension (principal); E03.9 Hypothyroidism, unspecified; Z79.01 Long term (current) use of anticoagulants
CPT/HCPCS: 36415; 80053; 85027; 84443

== ENCOUNTER 2025-02-21 10:39 | Outpatient (CLI) | payer MEDICARE, OTHER, SELFPAY ==
[2025-02-21 10:52] LABS: HCT 48.6 % (40.0-50.0); HGB 16.7 g/dL (13.5-17.5); MCH 31.5 pg (27.0-33.0); MCHC 34.4 % (32.0-36.0); MCV 92 fL (80-95); MPV 11.1 fL (8.0-11.0); Platelet Count 167 10^3/uL (130-400); RBC 5.31 10^6/uL (4.36-5.78); RDW 13.8 % (11.8-14.1); RDW-SD 46.6 fL; WBC 12.68 10^3/uL (4.4-10.8)
[2025-02-21 11:21] LABS: Hemoglobin A1C 5.8 % (<5.7)
[2025-02-21 11:49] LABS: ALT 35 U/L (16-63); AST 30 U/L (15-37); Albumin 3.4 g/dL (3.4-5.0); Alkaline Phosphatase 55 U/L (46-116); BUN 28 mg/dL (7-18); Bilirubin, Total 0.6 mg/dL (0.2-1.0); CREATININE 1.1 mg/dL (0.70-1.30); Calcium 9.2 mg/dL (8.5-10.1); Chloride 104 mmol/L (98-107); Estimated GFR 68.29 (mL/min/1.73m2); Glucose 106 mg/dL (74-106); Potassium 4.3 mmol/L (3.5-5.1); Sodium 139 mmol/L (136-145); Total Protein 6.6 g/dL (6.4-8.2)
[2025-02-21 12:03] LABS: Vitamin B12 570 pg/mL (193-986)
== END 2025-02-21 10:40 | disposition home or self-care (01) ==
LOC: LBO 10:39
PROVIDERS: PCP Family Medicine; Visit Provider Family Medicine
DX: Z79.899 Other long term (current) drug therapy (principal); E53.8 Deficiency of other specified B group vitamins
CPT/HCPCS: 36415; 80053; 85027; 82607; 83036

== ENCOUNTER 2025-03-30 11:20 | Outpatient (RCR) | payer MEDICARE, OTHER, SELFPAY ==
--- NOTE | 2025-04-04 09:14 | HOLT_ITS ---
Date of service: 04/04/25 Time of Service: 09:14 Holter Monitor Report Referring Provider:: Sophie Ennis Indications:: Palpitations Holter Monitor Note: This is a 48-hour Holter monitor. Predominant rhythm was sinus with an average heart rate of 66. Minimum was 35, maximum 112 There were occasional to frequent ventricular ectopic beats, comprising 6% of total. There were 5 runs of nonsustained ventricular tachycardia. The longest was 8 beats in duration There were frequent atrial premature beats comprising 19% of total. Self- limited atrial runs occurred. These were generally less than 10 beats in length. An episode labeled SVT lasting about a minute was artifact. There was no atrial fibrillation, no high-grade AV block, no pauses greater than 3 seconds. Reported symptoms correlated to sinus rhythm rate 71/min
== END 2025-04-17 23:59 | disposition home or self-care (01) ==
LOC: CARDOPNVT 11:20
PROVIDERS: PCP Family Medicine; Referring Provider Family Medicine; Visit Provider Internal Medicine Cardiovascular Disease
DX: R00.2 Palpitations (principal); I49.1 Atrial premature depolarization; I47.29 Other ventricular tachycardia
CPT/HCPCS: 93227; 93225; 93226

== ENCOUNTER 2025-04-13 13:21 | Outpatient (CLI) | payer MEDICARE, OTHER, SELFPAY ==
--- NOTE | 2025-04-13 13:15 | RT.EKG_ITS ---
APPROVED REPORT Exam: Resting ECG Reason for Exam: A-sumi Patient Location: O HR:62 bpm ECG Measurements Heart Rate 62 AXIS WA 184 P 42 QRSd 88 QRS -29 QT 411 T 55 QTc 418 Conclusion Sinus rhythm...normal P axis, V-rate 50- 99 Atrial and ventricular ectopic beats Borderline left axis deviation...QRS axis (-15,-29) Borderline low voltage, extremity leads...all extremity leads <0.6mV
== END 2025-04-13 13:22 | disposition home or self-care (01) ==
LOC: DI.CM 13:22
PROVIDERS: PCP Family Medicine; Visit Provider Family Medicine
DX: I48.91 Unspecified atrial fibrillation (principal)
CPT/HCPCS: 93010

== ENCOUNTER → 2025-10-09 14:40 | Outpatient (CLI) | payer MEDICARE, OTHER, SELFPAY ==
--- NOTE | 2025-10-09 14:00 | DI.RAD_ITS ---
Exam(s) XR CHEST 2V PA LATERAL EXAM: XR CHEST 2V PA LATERAL CLINICAL HISTORY: J18.9 Pneumonia, unspecified organism. TECHNIQUE: 2D digital imaging was performed. COMPARISON: No exams were available for comparison FINDINGS: 2 views: Heart size is normal. The mediastinum is not widened. There is relatively focal infiltrate in the mid-lower right lung adjacent to the minor fissure. Also some mild infiltrate in the lingular segment of the left lung. Small amount of pleural fluid bilaterally. No fractures. No pneumothorax. No pulmonary edema. There is embolization [place] material in left upper quadrant of the abdomen. IMPRESSION: There is some patchy infiltrate bilaterally and small amount of bilateral pleural fluid DATA REPOSITORY: RADIATION DOSE DELIVERED:
== END ==
LOC: DI 14:41
PROVIDERS: PCP Family Medicine; Visit Provider Family Medicine
DX: J18.9 Pneumonia, unspecified organism (principal)
CPT/HCPCS: 71046